=== PATIENT | female | born 1955 | race Two or more races ===

== ENCOUNTER 2019-01-15 18:43 | Emergency (ER) | payer MEDICARE, OTHER ==
[~2019-01-15] VITALS: Ht 162.6 cm; Wt 91.6 kg
[2019-01-15 19:00] VITALS: BP 118/62
[2019-01-15] MEDS ORDERED: Tetanus/Diptheria/Pertussis IM ONE (19:00)
--- NOTE | 2019-01-15 19:00 | NUR ---
ED Nurse Note: PT SENT TO ER TODAY BY DR CHAVEZ FOR TETANUS SHOT AFTER LACERATION TO LEFT FINGER X TODAY.
--- NOTE | 2019-01-15 19:30 | Emergency Room Report ---
History of Present Illness General Chief Complaint: Laceration Source: Patient Present Illness HPI 63-year-old female presents to the emergency department with request for tetanus vaccination administration. Patient status post laceration to the left index finger earlier today. Patient was seen by her primary care provider whom established hemostasis as as patient is on Coumadin. He advised patient to come to the ER to receive tetanus vaccination. Patient denies pain at this time she denies bleeding through the bandaging. Denies paresthesias. No other medical complaints/modifying factors. Pt. is right hand dominant. injury sustained when cutting veggies. Allergies: Coded Allergies: CODEINE (Verified Allergy, Unknown, 01/15/19) NITROGLYCERIN (Verified Allergy, Unknown, 01/15/19) PENICILLINS (Verified Allergy, Unknown, 01/15/19) Patient History Past Medical History: see triage record Past Surgical History: none Pertinent Family History: none Now: No Reviewed Nursing Documentation: PMH: Agreed; PSxH: Agreed Nursing Documentation-PMH Past Medical History: No History, Except For Hx Cardiac Problems: Yes - CHF, CARDIOMEGALY, LEAKY VALVES Hx Neurological Problems: Yes - FIBROMYALGIA Review of Systems All Other Systems: negative except mentioned in HPI Physical Exam Vital Signs Date Time Temp Pulse Resp B/P (MAP) Pulse Ox O2 Delivery O2 Flow Rate FiO2 01/15/19 18:52 98.2 62 16 98 Nasal Cannula 3.0 01/15/19 19:00 118/62 Sp02 EP Interpretation: reviewed, normal General Appearance: no apparent distress, alert, GCS 15, non-toxic Head: normocephalic, atraumatic Eyes: bilateral eye normal inspection, bilateral eye PERRL ENT: hearing grossly normal, normal voice Neck: full range of motion Respiratory: lungs clear, normal breath sounds, speaking full sentences Cardiovascular #1: regular rate, rhythm, normal capillary refill Musculoskeletal: gait/station normal, normal range of motion, non-tender Neurologic: alert, oriented x3, responsive, motor strength/tone normal, sensory intact, speech normal, grossly normal Psychiatric: judgement/insight normal Skin: normal color, no rash, warm/dry, well hydrated, laceration - avulsion laceration of the left index finger approx 0.5 cm in length Medical Decision Making PA Attestation Dr. rosas is my supervising Physician whom patient management has been discussed with. Diagnostic Impression: Primary Impression: Need for tetanus, diphtheria, and acellular pertussis (Tdap) vaccine ER Course 63-year-old female presents to the emergency department with request for tetanus vaccination administration. Patient status post laceration to the left index finger earlier today. Patient was seen by her primary care provider whom established hemostasis as as patient is on Coumadin. He advised patient to come to the ER to receive tetanus vaccination. Patient denies pain at this time she denies bleeding through the bandaging. Denies paresthesias. No other medical complaints/modifying factors. Pt. is right hand dominant. injury sustained when cutting veggies. Ddx considered but are not limited to laceration, tendon injury, cellulitis, amputation Vital signs: are WNL, pt. is afebrile H&PE are most consistent with: avulsion laceration of the left index finger approx 0.5 cm in length ORDERS: none required at this time, the diagnosis is clinical ED INTERVENTIONS: -Tetanus vaccine was administered as pt. vaccination status was unknown. -I do not identify an emergent condition at this time. With current presentation , pt. is stable for close outpatient follow up and conservative treatment. D/ w pt. to return promptly to ED with worsening or new symptoms.- Pt. verbalizes' understanding and agreement with proposed treatment plan.proposed treatment plan. DISCHARGE: At this time pt. is stable for d/c to home. Will provide printed patient care instructions, and any necessary prescriptions. Care plan and follow up instructions have been discussed with the patient prior to discharge. Last Vital Signs Date Time Temp Pulse Resp B/P (MAP) Pulse Ox O2 Delivery O2 Flow Rate FiO2 01/15/19 19:00 98.2 62 16 118/62 98 Nasal Cannula 3.0 Disposition: HOME, SELF-CARE Condition: Stable Patient Instructions: VIS, Tetanus, Diphtheria, and Pertussis (Tdap) - CDC Additional Instructions: Take any previously prescribed medications as directed. Follow up with a Primary Care Provider in 3-5 days, even if your symptoms have resolved. Return sooner to ED if new symptoms occur, or current symptoms become worse. - Please note that this Emergency Department Report was dictated using [employer] sociologist technology software, occasionally this can lead to erroneous entry secondary to interpretation by the dictation equipment. Linda Dorman January 15, 2019 19:30
[2019-01-15 19:38] VITALS: BP 118/62
--- NOTE | 2019-01-15 19:39 | NUR ---
ER DISCHARGE NOTE: Patient is cleared to be discharged per ERMD, pt is aox4, on room air, with stable vital signs. pt was given dc and prescription instructions, pt was able to verbalize understanding, pt id bandremoved. pt is able to ambulate with steady gait. pt took all belongings. accompanied by los
== END 2019-01-15 19:45 | disposition home or self-care (01) ==
LOC: EMR 19:30
DX: S61.211A Laceration without foreign body of left index finger without damage to nail, initial encounter (principal); M79.7 Fibromyalgia; I50.9 Heart failure, unspecified; Z88.6 Allergy status to analgesic agent; Z88.0 Allergy status to penicillin; W26.0XXA Contact with knife, initial encounter; Y93.G3 Activity, cooking and baking; Z79.01 Long term (current) use of anticoagulants; Z23 Encounter for immunization
CPT/HCPCS: 90471; 90715; 99282

== ENCOUNTER 2020-07-29 16:44 | Inpatient (IN) | payer MEDICARE ==
[~2020-07-29] VITALS: Ht 162.6 cm; Wt 94.8 kg
[2020-07-29 17:05] VITALS: BP 124/67
[2020-07-29] MEDS ORDERED: HYDROmorphone 1mg/ml Carpuject IVP ONE (17:30)
--- NOTE | 2020-07-29 17:32 | Emergency Room Report ---
History of Present Illness General Chief Complaint: Dyspnea/Respdistress Source: Patient Present Illness HPI Patient was hospitalized at [facility] from July 11 to the . The problem was rapid atrial fibrillation chest pain and congestive heart failure. She her rate was controlled but then 4 days later she started having palpitations. Over the last 48 hours she has been having palpitations nausea weakness and chest pain that is intermittent and worsened with exertion. Allergies: Coded Allergies: CODEINE (Verified Allergy, Unknown, 01/15/19) NITROGLYCERIN (Verified Allergy, Unknown, 01/15/19) PENICILLINS (Verified Allergy, Unknown, 01/15/19) COVID-19 Screening Contact w/high risk pt: No Experienced COVID-19 symptoms?: No COVID-19 Testing performed LETTER CARRIER: No Nursing Documentation-PM Past Medical History: No History, Except For Hx Cardiac Problems: Yes - CHF, CARDIOMEGALY, LEAKY VALVES Hx Pacemaker: Yes Hx COPD: Yes Hx Neurological Problems: Yes - FIBROMYALGIA Physical Exam Vital Signs Date Time Temp Pulse Resp B/P (MAP) Pulse Ox O2 Delivery O2 Flow Rate FiO2 07/29/20 16:59 98.2 60 17 124/67 (86) 94 Nasal Cannula 3.0 Medical Decision Making Diagnostic Impression: Primary Impression: Chest pain EKG Diagnostic Results Troponin ordered: Yes Rate: normal Rhythm: other - paced ST Segments: no acute changes ASA given to the pt in ED: No - Patient on Coumadin Rhythm Strip Diag. Results EP Interpretation: yes Rhythm: no PVC's, no ectopy, other - paced Kushal Dubois MD Jul 29, 2020 17:32
--- NOTE | 2020-07-29 17:52 | Emergency Room Report ---
History of Present Illness General Chief Complaint: Dyspnea/Respdistress Source: Patient Present Illness HPI Patient was hospitalized at [facility] from July 11 to the . The problem was rapid atrial fibrillation chest pain and congestive heart failure. She her rate was controlled but then 4 days. Then she started having palpitations. Over the last 48 hours she has been having palpitations nausea weakness and chest pain that is intermittent and worsened with exertion. She rates the pain 8/10 substernal and radiating somewhat posteriorly. She feels extremely weak when these episodes occur. She is barely able to ambulate at that time. She feels somewhat better leaning forward. She notices her neck veins are bulging and pulsating during these episodes. She feels anxious at that time. The patient is chronically on oxygen. The patient denies fevers or chills. She denies exposure to COVID-19 positive c ontacts. She denies productive cough. No sore throat, vomiting, diarrhea, dysuria, abdominal pain, joint pain, rashes, dizziness, headache. Allergies: Coded Allergies: NITROGLYCERIN (Verified Allergy, Unknown, 01/15/19) PENICILLINS (Verified Allergy, Unknown, 01/15/19) COVID-19 Screening Contact w/high risk pt: No Experienced COVID-19 symptoms?: No COVID-19 Testing performed PUMP AND BLOWER OPERATOR: No Patient History Past Medical History: see triage record Past Surgical History: pacemaker Social History: Denies: smoking Social History Narrative Lives alone Reviewed Nursing Documentation: PMH: Agreed; PSxH: Agreed Nursing Documentation-PMH Past Medical History: No History, Except For Hx Cardiac Problems: Yes - CHF, CARDIOMEGALY, LEAKY VALVES Hx Pacemaker: Yes Hx COPD: Yes Hx Neurological Problems: Yes - FIBROMYALGIA Review of Systems All Other Systems: negative except mentioned in HPI Physical Exam Vital Signs Date Time Temp Pulse Resp B/P (MAP) Pulse Ox O2 Delivery O2 Flow Rate FiO2 07/29/20 16:59 98.2 60 17 124/67 (86) 94 Nasal Cannula 3.0 Sp02 EP Interpretation: reviewed, abnormal - Interpreted as low by me based on FiO2 General Appearance: well appearing, no apparent distress, GCS 15, non-toxic Head: normocephalic, atraumatic Eyes: bilateral eye normal inspection, bilateral eye PERRL, bilateral eye EOMI ENT: moist mucus membranes Neck: full range of motion, supple Respiratory: chest non-tender, lungs clear, normal breath sounds Cardiovascular #1: regular rate, rhythm, no JVD, edema - Trace bilaterally Cardiovascular #2: 2+ radial (R) Gastrointestinal: normal inspection, normal bowel sounds, non tender, no mass, non-distended, overweight Genitourinary: no CVA tenderness Musculoskeletal: back normal, normal range of motion, no calf tenderness, gait/station normal Neurologic: alert, oriented x3, grossly normal Psychiatric: depressed affect Skin: no rash, warm/dry Medical Decision Making Diagnostic Impression: Primary Impression: Chest pain Qualified Codes: R07.9 - Chest pain, unspecified Additional Impression: Hypoxia ER Course The patient presents with several episodes of chest pain, weakness, anxiety after discharge from hospitalization at [facility]. Differential includes unstable angina, acute myocardial infarction, exacerbation of congestive heart failure, pulmonary embolus amongst others. Complex history with comorbidities. Suspicion for COVID-19 is low to nil. Evaluation with EKG, chest x-ray and labs. Aspirin was withheld due to the fact that she is on Coumadin. Suspicion for pulmonary embolus is low. Patient is placed on a clinical research monitor. Oxygen is continued. Patient is treated for pain. Complex patient with several comorbidities. EKG paced rhythm. Chest x-ray with slight reversal of flow and cardiomegaly. Normal white count. Anemia with hemoglobin of 9.7. CMP remarkable for elevated BUN. INR 2.1. Troponin negative. Patient improved with treatment. No arrhythmias noted during the time of observ ation. Patient admitted to telemetry for further cardiac evaluation and treatment. Laboratory Tests Test 07/29/20 18:10 07/29/20 18:43 White Blood Count 8.1 K/UL (4.8-10.8) Red Blood Count 3.00 M/UL (4.20-5.40) L Hemoglobin 9.7 G/DL (12.0-16.0) L Hematocrit 30.3 % (37.0-47.0) L Mean Corpuscular Volume 101 FL (80-99) H Mean Corpuscular Hemoglobin 32.4 PG (27.0-31.0) H Mean Corpuscular Hemoglobin Concent 32.0 G/DL (32.0-36.0) Red Cell Distribution Width 13.4 % (11.6-14.8) Platelet Count 117 K/UL (150-450) L Mean Platelet Volume 8.8 FL (6.5-10.1) Neutrophils (%) (Auto) 64.2 % (45.0-75.0) Lymphocytes (%) (Auto) 23.4 % (20.0-45.0) Monocytes (%) (Auto) 8.2 % (1.0-10.0) Eosinophils (%) (Auto) 2.9 % (0.0-3.0) Basophils (%) (Auto) 1.3 % (0.0-2.0) Prothrombin Time 21.5 SEC (9.30-11.50) H Prothrombin Time INR 2.1 (0.9-1.1) H Activated Partial Thromboplast Time 36 SEC (23-33) H Sodium Level 144 MMOL/L (136-145) Potassium Level 4.0 MMOL/L (3.5-5.1) Chloride Level 107 MMOL/L (98-107) Carbon Dioxide Level 32 MMOL/L (21-32) Anion Gap 5 mmol/L (5-15) Blood Urea Nitrogen 26 mg/dL (7-18) H Creatinine 1.1 MG/DL (0.55-1.30) Estimated Glomerular Filtration Rate > 60 mL/min (>60) Glucose Level 116 MG/DL (74-106) H Calcium Level 8.4 MG/DL (8.5-10.1) L Total Bilirubin 0.4 MG/DL (0.2-1.0) Aspartate Amino Transferase (AST) 29 U/L (15-37) Alanine Aminotransferase (ALT) 33 U/L (12-78) Alkaline Phosphatase 69 U/L (46-116) Total Creatine Kinase 110 U/L (26-308) Troponin I 0.026 ng/mL (0.000-0.056) Pro-B-Type Natriuretic Peptide 2679 pg/mL (0-125) H Total Protein 6.5 G/DL (6.4-8.2) Albumin 3.3 G/DL (3.4-5.0) L Globulin 3.2 g/dL Albumin/Globulin Ratio 1.0 (1.0-2.7) Urine Color Yellow Urine Appearance Clear Urine pH 7 (4.5-8.0) Urine Specific [place] 1.010 (1.005-1.035) Urine Protein Negative (NEGATIVE) Urine Glucose (UA) Negative (NEGATIVE) Urine Ketones Negative (NEGATIVE) Urine Blood Negative (NEGATIVE) Urine Nitrite Negative (NEGATIVE) Urine Bilirubin Negative (NEGATIVE) Urine Urobilinogen Normal MG/DL (0.0-1.0) Urine Leukocyte Esterase 1+ (NEGATIVE) H Urine RBC 0-2 /HPF (0 - 2) Urine WBC 0-2 /HPF (0 - 2) Urine Squamous Epithelial Cells Occasional /LPF Urine Bacteria Occasional /HPF (NONE) EKG Diagnostic Results Rate: normal Rhythm: other - paced ST Segments: no acute changes ASA given to the pt in ED: No - on coumadin Rhythm Strip Diag. Results Rhythm: no PVC's, no ectopy, other - paced Chest X-Ray Diagnostic Results Chest X-Ray Diagnostic Results : Chest X-Ray Ordered: Yes # of Views/Limited/Complete: 1 View Indication: Chest Pain Interpretation: no effusion, no pneumothorax, other - Mild pulmonary hypertension and cardiomegaly Impression: Other Electronically Signed by: Electronically signed by Kushal Dubois MD Last Vital Signs Date Time Temp Pulse Resp B/P (MAP) Pulse Ox O2 Delivery O2 Flow Rate FiO2 07/30/20 01:23 Nasal Cannula 2.0 07/30/20 01:15 61 117/64 07/30/20 00:00 96.4 18 97 Status: improved Disposition: ADMITTED INPATIENT Condition: Serious Kushal Dubois MD Jul 29, 2020 17:52
[2020-07-29 18:54] LABS: BASOPHILS % (AUTO) 1.3 % (0.0-2.0); EOSINOPHILS % (AUTO) 2.9 % (0.0-3.0); HEMATOCRIT 30.3 % (37.0-47.0); HEMOGLOBIN 9.7 G/DL (12.0-16.0); LYMPHOCYTES % (AUTO) 23.4 % (20.0-45.0); MEAN CORPUSCULAR VOLUME 101 FL (80-99); MONOCYTES % (AUTO) 8.2 % (1.0-10.0); NEUTROPHILS % (AUTO) 64.2 % (45.0-75.0); PLATELET COUNT 117 K/UL (150-450); RED CELL DISTRIBUTION WIDTH 13.4 % (11.6-14.8); WHITE BLOOD COUNT 8.1 K/UL (4.8-10.8)
[2020-07-29] MEDS ORDERED: dilTIAZem HCl 25mg/5ml Inj IV PRN (19:00)
[2020-07-29] MEDS ORDERED: Enalaprilat 2.5mg/2ml Inj IV PRN (19:00)
[2020-07-29] MEDS ORDERED: Albuterol/Ipratropium 3ml neb HHN PRN (19:00)
[2020-07-29] MEDS ORDERED: Miralax 17gm pkt ORAL PRN (19:00)
[2020-07-29 19:04] LABS: APPEARANCE,URINE CLEAR; BILIRUBIN, URINE NEGATIVE (NEGATIVE); GLUCOSE, URINE (UA) NEGATIVE (NEGATIVE); KETONES,URINE NEGATIVE (NEGATIVE); LEUKOCYTE ESTERASE ,URINE 1+ (NEGATIVE); NITRITE,URINE NEGATIVE (NEGATIVE); PH,URINE 7 (4.5-8.0); PROTEIN,URINE NEGATIVE (NEGATIVE); UROBILINOGEN,URINE NORMAL MG/DL (0.0-1.0)
[2020-07-29 19:10] LABS: INR 2.1 (0.9-1.1)
[2020-07-29 19:10] LABS: COLOR,URINE YELLOW
[2020-07-29 19:11] LABS: ANION GAP 5 mmol/L (5-15); BLOOD UREA NITROGEN 26 mg/dL (7-18); CALCIUM 8.4 MG/DL (8.5-10.1); CARBON DIOXIDE 32 MMOL/L (21-32); CHLORIDE 107 MMOL/L (98-107); CREATININE 1.1 MG/DL (0.55-1.30); SODIUM 144 MMOL/L (136-145)
[2020-07-29 19:24] LABS: ALANINE AMINOTRANSFERASE 33 U/L (12-78); ALBUMIN 3.3 G/DL (3.4-5.0); ALKALINE PHOSPHATASE 69 U/L (46-116); ASPARTATE AMINO TRANSFERASE 29 U/L (15-37); BILIRUBIN,TOTAL 0.4 MG/DL (0.2-1.0); CREATINE KINASE 110 U/L (26-308)
[2020-07-29] MEDS ORDERED: Heparin 5000 units/ml inj SUBQ SCH (21:00)
[2020-07-29] MEDS ORDERED: LISINOPRIL10 MG ORAL (22:06)
[2020-07-29] MEDS ORDERED: DULERA 200 MCG/13 GM IH (22:06)
[2020-07-29] MEDS ORDERED: FUROSEMIDE40 MG ORAL (22:06)
[2020-07-29] MEDS ORDERED: VITAMIN C500 M1 ORAL (22:06)
[2020-07-29] MEDS ORDERED: COLACE100 MG ORAL (22:06)
[2020-07-29] MEDS ORDERED: SUCRALFATE1 GM ORAL (22:06)
[2020-07-29] MEDS ORDERED: LIDODERM700 M1 TOPIC (22:06)
[2020-07-29] MEDS ORDERED: BACLOFEN10 MG ORAL (22:06)
[2020-07-29] MEDS ORDERED: ROXICODONE15 MG ORAL (22:06)
[2020-07-29] MEDS ORDERED: DIGOXIN0.125 MG/2 ORAL (22:06)
[2020-07-29] MEDS ORDERED: MAGNESIUM400 M2 PO (22:06)
[2020-07-29] MEDS ORDERED: POTASSIUM CHLO20 ME1 ORAL (22:06)
[2020-07-29] MEDS ORDERED: SIMVASTATIN40 MG ORAL (22:06)
[2020-07-29] MEDS ORDERED: WARFARIN SODIUM6 MG ORAL (22:06)
[2020-07-29] MEDS ORDERED: AMBIEN10 MG ORAL (22:06)
[2020-07-29] MEDS ORDERED: RELAFEN500 MG PO (22:06)
[2020-07-29] MEDS ORDERED: FOSAMAX70 MG ORAL (22:06)
[2020-07-29] MEDS ORDERED: MULTIVITAMINS1 EAC2 ORAL (22:06)
[2020-07-29] MEDS ORDERED: ALBUTEROL SULF8.5 G1 INH (22:06)
[2020-07-29] MEDS ORDERED: BENADRYL25 MG ORAL (22:06)
[2020-07-29] MEDS ORDERED: CARVEDILOL25 MG ORAL (22:06)
[2020-07-29] MEDS ORDERED: OMEPRAZOLE20 M3 ORAL (22:06)
--- NOTE | 2020-07-29 22:06 | History & Physical ---
History and Physical History & Physicial Yuri Escalera MD Jul 29, 2020 22:06
[2020-07-29] MEDS ORDERED: oxyCODONE 15mg IR tab ORAL PRN (23:31)
[2020-07-29] MEDS ORDERED: Zolpidem 5mg tab ORAL PRN (23:45)
[2020-07-29] MEDS: HYDROmorphone 1mg/ml Carpuject IVP PRN (23:58)
[2020-07-30] VITALS: BP 117/64
--- NOTE | 2020-07-30 01:14 | History and Physical Report ---
DATE OF ADMISSION: 07/29/2020 CHIEF COMPLAINT: Shortness of breath, palpitations. HISTORY OF PRESENT ILLNESS: This is a 65-year-old very delightful female with past medical history significant for hypertension, nonischemic dilated cardiomyopathy, rheumatic heart disease, paroxysmal atrial fibrillation status post dual-chamber implanted cardioverter defibrillator who presented to the hospital complaining about shortness of breath. Patient was recently seen in my office with complaints of shortness of breath and palpitation and subsequently was advised to get a blood test done. However, her status progressively worsening and she decided to come to the emergency room. Patient was noted recently admitted to [facility] on 07/11/2020 with palpitations, dizziness, and shortness of breath. Subsequently, patient was admitted to the hospital with acute on chronic congestive heart failure with preserved ejection fraction. PAST MEDICAL HISTORY/PAST SURGICAL HISTORY: As above, history of AICD placement, congestive heart failure, emphysema, COPD, fibromyalgia, congestive heart failure, dyslipidemia, osteoarthritis, history of TIA as well as ventricular fibrillation. MEDICATIONS: At home significant for oxycodone 20 mg 1 tablet q.12h., baclofen 10 mg 3 times a day as needed for spasms, Dyazide 10 mg by mouth twice daily as needed for pain, Ambien 10 mg p.o. at bedtime, iron sulfate 1 tablet p.o. t.i.d., warfarin 5 mg p.o. at bedtime, omeprazole 20 mg daily. Patient is on multivitamin, omega-3, lisinopril 10 mg daily, digoxin 125 mcg p.o. daily, carvedilol 25 mg twice a day, calcium with vitamin D 1 tablet p.o. daily, milk of magnesia 30 mL p.o. daily, Zocor 40 mg p.o. daily, Narcan nasal spray as needed. Patient is on Relafin 500 mg twice a day, potassium chloride 20 mg twice a day, Carafate 1 tablet p.o. daily, Benadryl 50 mg 3 times a day as needed, Lasix 40 mg twice a day, ascorbic acid 1000 mg twice a day. ALLERGIES: To codeine with itching, nausea, vomiting, nitrofurantoin, nitroglycerin with facial and around the eye swelling, penicillin, red spots on the body, morphine with nausea. SOCIAL HISTORY: Patient is . Never smoked. No alcohol or substance abuse. FAMILY HISTORY: Noncontributory. REVIEW OF SYSTEMS: Mostly as above. Denies any dysuria, frequency, or hematuria. Denies any hemoptysis or hematochezia. Complained about shortness of breath. Denies any loss of consciousness. Denies any fall or head trauma. Complained about palpitation, multiple joint pains. PHYSICAL EXAMINATION: VITAL SIGNS: On admission from the ER, temperature 98.2, pulse of 60, respirations 17, blood pressure 124/67. GENERAL: Patient is awake, responsive, in no acute distress. HEAD AND NECK: Pupils are equal and reactive to light. Extraocular movements are intact. Neck was supple. No JVD. LUNGS: Good air entry with no wheezing or rales. Decreased in bases. HEART: S1, S2. Irregular. Systolic ejection murmur left sternal border. No gallop. AICD in left-sided chest wall. ABDOMEN: Soft, nondistended, nontender. Positive bowel sounds. Mildly obese. Midline surgical scar was noted from prior surgery. Patient has a right-sided ventral hernia. EXTREMITIES: No cyanosis, clubbing. Trace edema bilateral lower extremities. NEUROLOGIC: Cranial nerves II through XII grossly intact. Motor is 5/5 in all extremities. RECTAL: Refused and deferred. GENITOURINARY: Refused and deferred. PSYCHIATRIC: Mood and affect is intact. LABORATORY DATA: On admission from the emergency department, WBC of 8.1, hemoglobin 9.7, hematocrit 30, platelets is 117. Sodium 144, potassium 4.0, chloride 107, bicarb 32, BUN 26, creatinine 1.0, GFR greater than 60. First troponin 0.026. ProBNP of 2679. Albumin is 3.3. PT of 21, INR 2.1, PTT of 36. Urinalysis, +1 leukocyte, otherwise all negative. On reviewing the records from [facility], patient recently had a negative myocardial perfusion pharmacologic SPECT exam on 03/16/2019. Noted patient has absence of coronary calcification on recent CT imaging. Decreased likelihood of significant obstructive coronary artery disease. Patient has total 7% myocardial defect with 3% reversible and 4% fixed, vessel reversible, nonreversible, RCA, LAD, small. ASSESSMENT: 1. Chest pain, possible acute coronary syndrome. 2. Acute on chronic congestive heart failure with preserved ejection fraction. 3. Ventral hernia without obstruction or gangrene. 4. Chronic atrial fibrillation. 5. Dilated cardiomyopathy. 6. Morbid obesity. 7. Fibromyalgia. 8. Hypertension. 9. COPD emphysema. 10. Severe osteoarthritis of the knees. PLAN: Admit patient to monitored unit. We will follow serial cardiac enzymes. Discussed with Dr. Calderon from Pulmonary Critical Care. Start patient on Lasix IV. Resume home medication. Code status is Full Code. DVT prophylaxis, she is already on Coumadin. Yuri Escalera M.D. DR: FAREED JOB#: [id number] CC:
[2020-07-30] MEDS: Carvedilol 25mg Tab ORAL SCH ×3 (01:15→21:14)
[2020-07-30] MEDS: Sucralfate 1gm tab ORAL SCH ×5 (01:15→21:12)
[2020-07-30 04:00] VITALS: BP 129/62
[2020-07-30 07:21] LABS: BASOPHILS % (AUTO) 1.4 % (0.0-2.0); EOSINOPHILS % (AUTO) 3.1 % (0.0-3.0); HEMATOCRIT 31.3 % (37.0-47.0); HEMOGLOBIN 9.9 G/DL (12.0-16.0); LYMPHOCYTES % (AUTO) 22.9 % (20.0-45.0); MEAN CORPUSCULAR VOLUME 104 FL (80-99); MONOCYTES % (AUTO) 8.8 % (1.0-10.0); NEUTROPHILS % (AUTO) 63.7 % (45.0-75.0); PLATELET COUNT 114 K/UL (150-450); RED CELL DISTRIBUTION WIDTH 13.5 % (11.6-14.8); WHITE BLOOD COUNT 6.7 K/UL (4.8-10.8)
[2020-07-30 07:52] LABS: ALANINE AMINOTRANSFERASE 33 U/L (12-78); ALBUMIN 3.1 G/DL (3.4-5.0); ALKALINE PHOSPHATASE 65 U/L (46-116); ANION GAP 3 mmol/L (5-15); ASPARTATE AMINO TRANSFERASE 29 U/L (15-37); BILIRUBIN,TOTAL 0.4 MG/DL (0.2-1.0); BLOOD UREA NITROGEN 26 mg/dL (7-18); CALCIUM 8.3 MG/DL (8.5-10.1); CARBON DIOXIDE 34 MMOL/L (21-32); CHLORIDE 106 MMOL/L (98-107); CHOLESTEROL 152 MG/DL (< 200); HDL CHOLESTEROL 45 MG/DL (40-60); SODIUM 143 MMOL/L (136-145); TRIGLYCERIDES 80 MG/DL (30-150)
[2020-07-30 08:00] VITALS: BP 103/52
[2020-07-30] MEDS: HYDROmorphone 1mg/ml Carpuject IVP PRN ×5 (08:12→22:40)
[2020-07-30 08:23] LABS: PHOSPHORUS 3.4 MG/DL (2.5-4.9)
[2020-07-30] MEDS ORDERED: Hydromorphone 0.5mg/0.5ml inj IVP PRN (08:29)
[2020-07-30] MEDS: Lisinopril 10mg tab ORAL SCH (09:00)
[2020-07-30] MEDS: Ascorbic Acid 500mg tab ORAL SCH (10:05)
[2020-07-30] MEDS: Aspirin Baby 81mg ORAL SCH (10:05)
[2020-07-30] MEDS: Digoxin 0.125mg tab ORAL SCH (10:06)
[2020-07-30] MEDS: Docusate 100mg cap ORAL SCH ×2 (10:06→17:57)
--- NOTE | 2020-07-30 11:56 | Consultation ---
History of Present Illness General Date patient seen: Jul 30, 2020 Chief Complaint: Dyspnea/Respdistress Present Illness HPI 65 year old female with hx of chronic atrial fibrillation, chronic anticoagulation with warfarin, recent hospitalization at [facility] because of rapid atrial fibrillation chest pain and congestive heart failure. She her rate was controlled but then 4 days later she started having palpitations. Over the last 48 hours she has been having palpitations nausea weakness and chest pain that is intermittent and worsened with exertion. Acute NE was ruled out in ER and she is admitted for further management. Allergies: Coded Allergies: NITROGLYCERIN (Verified Allergy, Unknown, 01/15/19) PENICILLINS (Verified Allergy, Unknown, 01/15/19) Medication History Scheduled Albuterol Sulfate* (Albuterol Sulfate Hfa*), 2 PUFF INH Q4H, (Reported) Alendronate Sodium* (Fosamax*), 70 MG ORAL ONCE A WEEK, (Reported) Ascorbic Acid* (Vitamin C*), 1,000 MG ORAL DAILY, (Reported) Baclofen* (Baclofen*), 10 MG ORAL THREE TIMES A DAY, (Reported) Carvedilol* (Carvedilol*), 25 MG ORAL EVERY 12 HOURS, (Reported) Digoxin* (Digoxin*), 0.125 MG ORAL DAILY, (Reported) Docusate Sodium* (Colace*), 100 MG ORAL TWICE A DAY, (Reported) Furosemide* (Lasix*), 40 MG ORAL TWICE A DAY, (Reported) Lidocaine Patch* (Lidoderm Patch*), 1 PATCH TOPIC DAILY, (Reported) Lisinopril* (Lisinopril*), 10 MG ORAL DAILY, (Reported) Multivitamins* (Multivitamins*), 1 TAB ORAL DAILY, (Reported) Omeprazole (Omeprazole), 20 MG ORAL DAILY, (Reported) Potassium Chloride* (K-Dur*), 20 MEQ ORAL TWICE A DAY, (Reported) Simvastatin (Zocor), 40 MG ORAL BEDTIME, (Reported) Sucralfate* (Carafate*), 1 GM ORAL FOUR TIMES A DAY, (Reported) Warfarin Sod* (Warfarin Sod*), 6 MG ORAL DAILY, (Reported) Scheduled PRN Diphenhydramine Hcl* (Benadryl*), 25 MG ORAL Q6H PRN for Itching, (Reported) OXYCODONE HCl* (Roxicodone*), 15 MG ORAL Q6H PRN for For Pain, (Reported) Zolpidem Tartrate* (Ambien*), 10 MG ORAL BEDTIME PRN for Insomnia, (Reported) Miscellaneous Medications Magnesium Oxide (Magnesium), 400 MG PO, (Reported) Mometasone/Formoterol (Dulera 200 Mcg/5 Mcg Inhaler), 13 GM IH, (Reported) Nabumetone (Nabumetone), 500 MG GT, (Reported) Patient History Healthcare decision maker Resuscitation status Advanced Directive on File No Past Medical/Surgical History Past Medical/Surgical History: (1) Chronic anticoagulation (2) Chronic atrial fibrillation (3) Pacemaker Review of Systems All Other Systems: negative except mentioned in HPI Physical Exam General Appearance: WD/WN, no apparent distress, alert Lines, tubes and drains: peripheral HEENT: normocephalic, atraumatic Neck: non-tender, normal alignment Respiratory/Chest: chest wall non-tender, lungs clear, normal breath sounds Cardiovascular/Chest: normal peripheral pulses, normal rate, regular rhythm Abdomen: normal bowel sounds, non tender Extremities: normal range of motion, non-tender, non-pitting Skin Exam: normal pigmentation 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: 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 II-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 grossly normal Last 24 Hour Vital Signs Date Time Temp Pulse Resp B/P (MAP) Pulse Ox O2 Delivery O2 Flow Rate FiO2 07/30/20 10:06 68 07/30/20 09:00 103/52 07/30/20 09:00 68 103/52 07/30/20 09:00 Nasal Cannula 2.0 07/30/20 08:00 60 07/30/20 08:00 97.1 68 18 103/52 (69) 97 07/30/20 04:00 97.9 60 16 129/62 (84) 96 07/30/20 04:00 60 07/30/20 01:23 Nasal Cannula 2.0 07/30/20 01:15 61 117/64 07/30/20 00:00 60 07/30/20 00:00 96.4 60 18 117/64 (81) 97 07/29/20 22:08 98.2 76 18 117/76 98 Nasal Cannula 2.0 07/29/20 19:01 98.2 07/29/20 17:05 98.2 89 17 124/67 94 Nasal Cannula 3.0 07/29/20 17:05 60 17 Room Air 07/29/20 16:59 98.2 60 17 124/ (86) 94 Nasal Cannula 3.0 Intake and Output 07/29/20 07/30/20 19:00 07:00 Intake Total 400 ml Balance 400 ml Intake Oral 400 ml # Voids 5 Laboratory Tests Test 07/29/20 18:10 07/29/20 18:43 07/30/20 06:37 White Blood Count 8.1 K/UL (4.8-10.8) 6.7 K/UL (4.8-10.8) Red Blood Count 3.00 M/UL (4.20-5.40) L 3.00 M/UL (4.20-5.40) L Hemoglobin 9.7 G/DL (12.0-16.0) L 9.9 G/DL (12.0-16.0) L Hematocrit 30.3 % (37.0-47.0) L 31.3 % (37.0-47.0) L Mean Corpuscular Volume 101 FL (80-99) H 104 FL (80-99) H Mean Corpuscular Hemoglobin 32.4 PG (27.0-31.0) H 32.8 PG (27.0-31.0) H Mean Corpuscular Hemoglobin Concent 32.0 G/DL (32.0-36.0) 31.6 G/DL (32.0-36.0) L Red Cell Distribution Width 13.4 % (11.6-14.8) 13.5 % (11.6-14.8) Platelet Count 117 K/UL (150-450) L 114 K/UL (150-450) L Mean Platelet Volume 8.8 FL (6.5-10.1) 8.8 FL (6.5-10.1) Neutrophils (%) (Auto) 64.2 % (45.0-75.0) 63.7 % (45.0-75.0) Lymphocytes (%) (Auto) 23.4 % (20.0-45.0) 22.9 % (20.0-45.0) Monocytes (%) (Auto) 8.2 % (1.0-10.0) 8.8 % (1.0-10.0) Eosinophils (%) (Auto) 2.9 % (0.0-3.0) 3.1 % (0.0-3.0) H Basophils (%) (Auto) 1.3 % (0.0-2.0) 1.4 % (0.0-2.0) Prothrombin Time 21.5 SEC (9.30-11.50) H 20.7 SEC (9.30-11.50) H Prothromb Time International Ratio 2.1 (0.9-1.1) H 2.0 (0.9-1.1) H Activated Partial Thromboplast Time 36 SEC (23-33) H 36 SEC (23-33) H Sodium Level 144 MMOL/L (136-145) 143 MMOL/L (136-145) Potassium Level 4.0 MMOL/L (3.5-5.1) 4.0 MMOL/L (3.5-5.1) Chloride Level 107 MMOL/L (98-107) 106 MMOL/L (98-107) Carbon Dioxide Level 32 MMOL/L (21-32) 34 MMOL/L (21-32) H Anion Gap 5 mmol/L (5-15) 3 mmol/L (5-15) L Blood Urea Nitrogen 26 mg/dL (7-18) H 26 mg/dL (7-18) H Creatinine 1.1 MG/DL (0.55-1.30) 1.0 MG/DL (0.55-1.30) Estimat Glomerular Filtration Rate > 60 mL/min (>60) > 60 mL/min (>60) Glucose Level 116 MG/DL (74-106) H 97 MG/DL (74-106) Calcium Level 8.4 MG/DL (8.5-10.1) L 8.3 MG/DL (8.5-10.1) L Total Bilirubin 0.4 MG/DL (0.2-1.0) 0.4 MG/DL (0.2-1.0) Aspartate Amino Transf (AST/SGOT) 29 U/L (15-37) 29 U/L (15-37) Alanine Aminotransferase (ALT/SGPT) 33 U/L (12-78) 33 U/L (12-78) Alkaline Phosphatase 69 U/L (46-116) 65 U/L (46-116) Total Creatine Kinase 110 U/L (26-308) Troponin I 0.026 ng/mL (0.000-0.056) 0.024 ng/mL (0.000-0.056) Pro-B-Type Natriuretic Peptide 2679 pg/mL (0-125) H Total Protein 6.5 G/DL (6.4-8.2) 6.3 G/DL (6.4-8.2) L Albumin 3.3 G/DL (3.4-5.0) L 3.1 G/DL (3.4-5.0) L Globulin 3.2 g/dL 3.2 g/dL Albumin/Globulin Ratio 1.0 (1.0-2.7) 1.0 (1.0-2.7) Urine Color Yellow Urine Appearance Clear Urine pH 7 (4.5-8.0) Urine Specific [place] 1.010 (1.005-1.035) Urine Protein Negative (NEGATIVE) Urine Glucose (UA) Negative (NEGATIVE) Urine Ketones Negative (NEGATIVE) Urine Blood Negative (NEGATIVE) Urine Nitrite Negative (NEGATIVE) Urine Bilirubin Negative (NEGATIVE) Urine Urobilinogen Normal MG/DL (0.0-1.0) Urine Leukocyte Esterase 1+ (NEGATIVE) H Urine RBC 0-2 /HPF (0 - 2) Urine WBC 0-2 /HPF (0 - 2) Urine Squamous Epithelial Cells Occasional /LPF Urine Bacteria Occasional /HPF (NONE) Phosphorus Level 3.4 MG/DL (2.5-4.9) Magnesium Level 2.0 MG/DL (1.8-2.4) C-Reactive Protein, Quantitative 0.5 mg/dL (0.00-0.90) Triglycerides Level 80 MG/DL (30-150) Cholesterol Level 152 MG/DL (< 200) LDL Cholesterol 83 mg/dL (<100) HDL Cholesterol 45 MG/DL (40-60) Cholesterol/HDL Ratio 3.4 (3.3-4.4) Thyroid Stimulating Hormone (TSH) 1.070 uiU/mL (0.358-3.740) Microbiology Date/Time Source Procedure Growth Status 07/29/20 22:00 Rectum Received Height (Feet): 5 Height (Inches): 4.00 Weight (Pounds): 209 Medications Current Medications Medications (Trade) Dose Ordered Sig/Nancy Route PRN Reason Start Time Stop Time Status Last Admin Dose Admin Acetaminophen (Tylenol) 650 mg Q4H PRN ORAL FEVER 07/29/20 19:00 08/28/20 18:59 Albuterol/ Ipratropium (Albuterol/ Ipratropium) 3 ml Q4H PRN HHN Shortness of Breath 07/29/20 19:00 08/03/20 18:59 Ascorbic Acid (Vitamin C) 1,000 mg DAILY ORAL 07/30/20 09:00 08/29/20 08:59 07/30/20 10:05 Aspirin (ASA) 162 mg DAILY ORAL 07/30/20 09:00 09/13/20 08:59 07/30/20 10:05 Atorvastatin Calcium (Lipitor) 20 mg BEDTIME ORAL 07/30/20 21:00 10/28/20 20:59 Baclofen (Lioresal) 10 mg THREE TIMES A DAY ORAL 07/30/20 09:00 08/29/20 08:59 07/30/20 10:06 Carvedilol (Coreg) 25 mg EVERY 12 HOURS ORAL 07/30/20 00:00 08/29/20 00:00 07/30/20 01:15 Digoxin (Lanoxin) 0.125 mg DAILY ORAL 07/30/20 09:00 10/28/20 08:59 07/30/20 10:06 Diltiazem HCl (Cardizem) 10 mg Q1H PRN IV heart rate more than 120, 07/29/20 19:00 08/28/20 18:59 Diphenhydramine HCl (Benadryl) 25 mg Q6H PRN ORAL Itching 07/29/20 23:45 08/28/20 23:44 Docusate Sodium (Colace) 100 mg TWICE A DAY ORAL 07/30/20 09:00 08/29/20 08:59 07/30/20 10:06 Enalaprilat (Vasotec) 2.5 mg Q6H PRN IV sbp more than 160 07/29/20 19:00 08/28/20 18:59 Furosemide (Lasix) 40 mg EVERY 12 HOURS IV 07/30/20 00:00 08/29/20 00:00 07/30/20 10:05 Hydromorphone HCl (Dilaudid) 0.5 mg Q4H PRN IVP Severe Pain (Pain Scale 7-10) 07/30/20 08:29 08/06/20 08:28 Lidocaine (Lidoderm 5% PATCH) 1 patch DAILY PRN TDERMAL For Pain 07/29/20 23:45 10/27/20 23:44 Lisinopril (ZestriL) 10 mg DAILY ORAL 07/30/20 09:00 08/29/20 08:59 Magnesium Oxide (Mag-Ox 400mg) 400 mg DAILYPRN PRN ORAL Constipation 07/30/20 08:30 08/29/20 08:29 Multivitamins (Multivitamins) 1 tab DAILY ORAL 07/30/20 09:00 08/29/20 08:59 07/30/20 10:06 Non-Formulary Medication (Non-Formulary Med) 1 ea BID PRN INH Shortness of Breath 07/29/20 23:45 08/28/20 23:44 UNV Ondansetron HCl (Zofran) 4 mg Q6H PRN IVP Nausea & Vomiting 07/29/20 19:00 08/28/20 18:59 07/30/20 10:21 Oxycodone HCl (Roxicodone) 15 mg Q6H PRN ORAL Moderate Breakthru Pain (5-7) 07/29/20 23:31 08/05/20 23:30 Polyethylene Glycol (Miralax) 17 gm DAILYPRN PRN ORAL Constipation 07/29/20 19:00 08/28/20 18:59 Potassium Chloride (K-Dur) 20 meq TWICE A DAY ORAL 07/30/20 09:00 10/28/20 08:59 07/30/20 10:05 Sucralfate (Carafate) 1 gm BEFORE MEALS AND HS ORAL 07/30/20 00:00 10/28/20 00:00 07/30/20 06:39 Temazepam (Restoril) 15 mg HSPRN PRN ORAL Insomnia first choice 07/29/20 19:00 08/05/20 18:59 07/30/20 03:08 Warfarin Sodium (Coumadin per pharmacy) 1 ea DAILY PRN MISC Per rx protocol 07/29/20 23:45 08/28/20 23:44 Warfarin Sodium (Coumadin/ Warfarin Sod) 6 mg COUMADIN ORAL 07/30/20 17:00 07/30/20 19:00 Zolpidem Tartrate (Ambien) 5 mg BEDTIME PRN ORAL Insomnia 07/29/20 23:45 08/05/20 23:44 Assessment/Plan Problem List: (1) Chronic atrial fibrillation ICD Codes: I48.20 - Chronic atrial fibrillation, unspecified SNOMED: 560101127 (2) Chronic anticoagulation ICD Codes: Z79.01 - assisted (current) use of anticoagulants SNOMED: 734251284 (3) Macrocytic anemia ICD Codes: D53.9 - Nutritional anemia, unspecified SNOMED: 15126957 (4) ACS (acute coronary syndrome) ICD Codes: I24.9 - Acute ischemic heart disease, unspecified SNOMED: 127880422 (5) Pacemaker ICD Codes: Z95.0 - Presence of cardiac pacemaker SNOMED: 197222280 Assessment/Plan: telemetry monitoring echocardiogram titrate cardiac meds pharmacy to dose coumadin pain management pt is asking for Zarina Estrada MD Jul 30, 2020 11:56
[2020-07-30 12:00] VITALS: BP 133/72
--- NOTE | 2020-07-30 12:41 | Cardiology Report ---
APPROVED REPORT EXAM: Two-dimensional and M-mode echocardiogram with Doppler and color Doppler. INDICATION Left ventricular function M-Mode DIMENSIONS IVSd0.8 (0.7-1.1cm)Left Atrium (MM)6.6 (1.6-4.0cm) LVDd6.7 (3.5-5.6cm)Aortic Root3.1 (2.0-3.7cm) PWd0.8 (0.7-1.1cm)Aortic Cusp Exc.1.7 (1.5-2.0cm) IVSs1.8 cmEPSS0.9 (>1.0cm) LVDs4.0 (2.5-4.0cm) PWs2.0 cm <Conclusion> Mild left ventricular enlargement. Normal left ventricular systolic function and wall motion Left ventricular ejection fraction estimated to be 60 %. No left ventricular hypertrophy. Possible large pleural effusion. Severe left atrial enlargement. Mild right atrial enlargement. Right ventricular chamber size is within normal limits. Focal aortic valve sclerosis with adequate cusp excursion. Thickened mitral valve leaflets with normal excursion. Mitral annulus and aortic root calcification. Pulmonic valve not well visualized. Normal tricuspid valve structure. IVC dilated at 3.0 cm with slignt physiologic collapse suggestive of increased RA pressure. Pacemaker wire present in the right side chambers. A color flow and spectral Doppler study was performed and revealed: Moderate aortic regurgitation. Moderate to severe mitral regurgitation. Cannot determine left ventricular diastolic function by mitral diastolic velocities due to atrial fibrillation. Moderate to severe tricuspid regurgitation. Tricuspid systolic velocities suggests peak right ventricular systolic pressure of 90 mmHg, consistent with severe pulmonary hypertension. No pulmonic regurgitation present.
--- NOTE | 2020-07-30 12:52 | Cardiology Report ---
APPROVED REPORT EKG Measurement Heart [id number] <Conclusion> Ventricular-paced rhythm Abnormal ECG
[2020-07-30 12:55] LABS: LACTATE DEHYDROGENASE 297 U/L (81-234)
--- NOTE | 2020-07-30 13:01 | Cardiac Electrophysiology PN ---
Subjective Subjective [id number]. [facility] records reviewed and DW Dr Brice Objective Last 24 Hour Vital Signs Date Time Temp Pulse Resp B/P (MAP) Pulse Ox O2 Delivery O2 Flow Rate FiO2 07/30/20 12:00 60 07/30/20 12:00 97.9 60 18 133/72 (92) 96 07/30/20 10:06 68 07/30/20 09:00 103/52 07/30/20 09:00 68 103/52 07/30/20 09:00 Nasal Cannula 2.0 07/30/20 08:00 60 07/30/20 08:00 97.1 68 18 103/52 (69) 97 07/30/20 04:00 97.9 60 16 129/62 (84) 96 07/30/20 04:00 60 07/30/20 01:23 Nasal Cannula 2.0 07/30/20 01:15 61 117/64 07/30/20 00:00 60 07/30/20 00:00 96.4 60 18 117/64 (81) 97 07/29/20 22:08 98.2 76 18 117/76 98 Nasal Cannula 2.0 07/29/20 19:01 98.2 07/29/20 17:05 98.2 89 17 124/67 94 Nasal Cannula 3.0 07/29/20 17:05 60 17 Room Air 07/29/20 16:59 98.2 60 17 124/67 (86) 94 Nasal Cannula 3.0 Intake and Output 07/29/20 07/30/20 19:00 07:00 Intake Total 400 ml Balance 400 ml Intake Oral 400 ml # Voids 5 Laboratory Tests Test 07/29/20 18:10 07/29/20 18:43 07/30/20 06:37 White Blood Count 8.1 K/UL (4.8-10.8) 6.7 K/UL (4.8-10.8) Red Blood Count 3.00 M/UL (4.20-5.40) L 3.00 M/UL (4.20-5.40) L Hemoglobin 9.7 G/DL (12.0-16.0) L 9.9 G/DL (12.0-16.0) L Hematocrit 30.3 % (37.0-47.0) L 31.3 % (37.0-47.0) L Mean Corpuscular Volume 101 FL (80-99) H 104 FL (80-99) H Mean Corpuscular Hemoglobin 32.4 PG (27.0-31.0) H 32.8 PG (27.0-31.0) H Mean Corpuscular Hemoglobin Concent 32.0 G/DL (32.0-36.0) 31.6 G/DL (32.0-36.0) L Red Cell Distribution Width 13.4 % (11.6-14.8) 13.5 % (11.6-14.8) Platelet Count 117 K/UL (150-450) L 114 K/UL (150-450) L Mean Platelet Volume 8.8 FL (6.5-10.1) 8.8 FL (6.5-10.1) Neutrophils (%) (Auto) 64.2 % (45.0-75.0) 63.7 % (45.0-75.0) Lymphocytes (%) (Auto) 23.4 % (20.0-45.0) 22.9 % (20.0-45.0) Monocytes (%) (Auto) 8.2 % (1.0-10.0) 8.8 % (1.0-10.0) Eosinophils (%) (Auto) 2.9 % (0.0-3.0) 3.1 % (0.0-3.0) H Basophils (%) (Auto) 1.3 % (0.0-2.0) 1.4 % (0.0-2.0) Prothrombin Time 21.5 SEC (9.30-11.50) H 20.7 SEC (9.30-11.50) H Prothromb Time International Ratio 2.1 (0.9-1.1) H 2.0 (0.9-1.1) H Activated Partial Thromboplast Time 36 SEC (23-33) H 36 SEC (23-33) H Sodium Level 144 MMOL/L (136-145) 143 MMOL/L (136-145) Potassium Level 4.0 MMOL/L (3.5-5.1) 4.0 MMOL/L (3.5-5.1) Chloride Level 107 MMOL/L (98-107) 106 MMOL/L (98-107) Carbon Dioxide Level 32 MMOL/L (21-32) 34 MMOL/L (21-32) H Anion Gap 5 mmol/L (5-15) 3 mmol/L (5-15) L Blood Urea Nitrogen 26 mg/dL (7-18) H 26 mg/dL (7-18) H Creatinine 1.1 MG/DL (0.55-1.30) 1.0 MG/DL (0.55-1.30) Estimat Glomerular Filtration Rate > 60 mL/min (>60) > 60 mL/min (>60) Glucose Level 116 MG/DL (74-106) H 97 MG/DL (74-106) Calcium Level 8.4 MG/DL (8.5-10.1) L 8.3 MG/DL (8.5-10.1) L Total Bilirubin 0.4 MG/DL (0.2-1.0) 0.4 MG/DL (0.2-1.0) Aspartate Amino Transf (AST/SGOT) 29 U/L (15-37) 29 U/L (15-37) Alanine Aminotransferase (ALT/SGPT) 33 U/L (12-78) 33 U/L (12-78) Alkaline Phosphatase 69 U/L (46-116) 65 U/L (46-116) Total Creatine Kinase 110 U/L (26-308) Troponin I 0.026 ng/mL (0.000-0.056) 0.024 ng/mL (0.000-0.056) Pro-B-Type Natriuretic Peptide 2679 pg/mL (0-125) H Total Protein 6.5 G/DL (6.4-8.2) 6.3 G/DL (6.4-8.2) L Albumin 3.3 G/DL (3.4-5.0) L 3.1 G/DL (3.4-5.0) L Globulin 3.2 g/dL 3.2 g/dL Albumin/Globulin Ratio 1.0 (1.0-2.7) 1.0 (1.0-2.7) Urine Color Yellow Urine Appearance Clear Urine pH 7 (4.5-8.0) Urine Specific [place] 1.010 (1.005-1.035) Urine Protein Negative (NEGATIVE) Urine Glucose (UA) Negative (NEGATIVE) Urine Ketones Negative (NEGATIVE) Urine Blood Negative (NEGATIVE) Urine Nitrite Negative (NEGATIVE) Urine Bilirubin Negative (NEGATIVE) Urine Urobilinogen Normal MG/DL (0.0-1.0) Urine Leukocyte Esterase 1+ (NEGATIVE) H Urine RBC 0-2 /HPF (0 - 2) Urine WBC 0-2 /HPF (0 - 2) Urine Squamous Epithelial Cells Occasional /LPF Urine Bacteria Occasional /HPF (NONE) Neutrophils % (Manual) Pending Lymphocytes % (Manual) Pending Platelet Estimate Pending Platelet Morphology Pending Erythrocyte Sedimentation Rate Pending Reticulocyte Count Pending Phosphorus Level 3.4 MG/DL (2.5-4.9) Magnesium Level 2.0 MG/DL (1.8-2.4) Iron Level Pending Unsaturated Iron Binding Pending Lactate Dehydrogenase 297 U/L (81-234) H C-Reactive Protein, Quantitative 0.5 mg/dL (0.00-0.90) Triglycerides Level 80 MG/DL (30-150) Cholesterol Level 152 MG/DL (< 200) LDL Cholesterol 83 mg/dL (<100) HDL Cholesterol 45 MG/DL (40-60) Cholesterol/HDL Ratio 3.4 (3.3-4.4) Carcinoembryonic Antigen Pending Vitamin B12 Level Pending Folate Pending Thyroid Stimulating Hormone (TSH) 1.070 uiU/mL (0.358-3.740) Microbiology Date/Time Source Procedure Growth Status 07/29/20 22:00 Rectum Received Michael Guerrero MD Jul 30, 2020 13:01
[2020-07-30 13:41] LABS: % IRON SATURATION 22 % (15-50); IRON 44 ug/dL (50-175); TOTAL IRON BINDING CAPACITY 203 ug/dL (250-450)
--- NOTE | 2020-07-30 13:59 | Consultation ---
DATE OF CONSULTATION: 07/30/2020 CARDIAC ELECTROPHYSIOLOGY CONSULTATION CONSULTING PHYSICIAN: Michael Guerrero MD. REFERRING PHYSICIAN: Yuri Escalera MD. REASON FOR CONSULTATION: Management of hypertension, atrial fibrillation, and evaluation of the patient's defibrillator. HISTORY OF PRESENT ILLNESS: The patient is a 65-year-old lady with history of hypertension, congestive heart failure as well as history of dilated cardiomyopathy as well as chronic atrial fibrillation who had undergone a defibrillator implantation originally in 2001 and then subsequently the battery changed with a [employer] defibrillator in 2012 as well as most recent one at [facility] on March 12, 2020 with another [employer] defibrillator. It is a dual-chamber device. The patient presented to the emergency room with increasing shortness of breath and palpitation. The patient was recently admitted to [facility] on July 11, 2020 with palpitation and shortness of breath and was found to have for preserved ejection fraction. REVIEW OF SYSTEMS: Negative other than what was mentioned in history of present illness. PAST MEDICAL HISTORY: As mentioned above. FAMILY HISTORY: Noncontributory. SOCIAL HISTORY: The patient lives at home. Does not smoke or drink alcohol. PHYSICAL EXAMINATION: VITAL SIGNS: Show blood pressure of 132/72, pulse is 60, respirations 18, and she is afebrile. HEAD AND NECK: Showed no JVD or carotid bruits. LUNGS: Clear. CARDIOVASCULAR: Regular S1 and S2 with no gallop. Defibrillator in left subclavian with multiple incision. ABDOMEN: Soft. EXTREMITIES: No pitting edema. LABORATORY AND DIAGNOSTIC DATA: Her EKG showed atrial fibrillation at baseline and ventricular paced rhythm. Labs show white count 6.7, hemoglobin 9.9, hematocrit 31.3, and platelet count 114. Sodium 142, potassium 4.0, BUN of 26, creatinine 1.0. Troponins are negative. BNP is 27,000. ASSESSMENT AND PLAN: 1. Status post dual-chamber [employer] defibrillator generator change in March 2020 at [facility]. We will re-interrogate device to make sure it is functioning normally. 2. Chronic atrial fibrillation. The rate is controlled on digoxin 0.125 mg daily and Coreg 25 mg b.i.d. that would be continued. The patient is also on anticoagulation with Coumadin. 3. Exacerbation of congestive heart failure. The patient has diastolic dysfunction. Ejection fraction is within normal range. The patient is on Lasix 40 mg IV b.i.d., Coreg 25 mg b.i.d., lisinopril 10 mg daily. 4. Chronic atrial fibrillation, again rate is controlled. 5. History of chest pain. The patient will be ruled out for myocardial infarction, likely due to congestive heart failure. 6. Fibromyalgia. 7. COPD. 8. Osteoarthritis of the knees. 9. Ventral hernia. Thank you very much for allowing me to participate in the care of this patient. Please do not hesitate to contact me for any questions regarding my evaluation. Sincerely, Michael Guerrero M.D. DR: Vianey JOB#: [id number] CC:
[2020-07-30 16:00] VITALS: BP 124/65
[2020-07-30] MEDS ORDERED: WARFARIN SOD ORAL SCH ×2 (17:00)
--- NOTE | 2020-07-30 17:13 | Diagnostic Imaging Report ---
Indication: Chest pain and cough Technique: One view of the chest Comparison: None Findings: The heart is enlarged. There is left chest bifocal and ICD. The lungs and pleural spaces are clear. Impression: Cardiomegaly. No acute process
--- NOTE | 2020-07-30 17:58 | Internal Med Progress Note ---
Subjective Date of Service: Jul 30, 2020 Physician Name BriceAngelo Attending Physician Yuri Escalera MD Current Medications Medications (Trade) Dose Ordered Sig/Nancy Route PRN Reason Start Time Stop Time Status Last Admin Dose Admin Acetaminophen (Tylenol) 650 mg Q4H PRN ORAL FEVER 07/29/20 19:00 08/28/20 18:59 Acetaminophen (Tylenol) 650 mg Q4H PRN ORAL Mild Pain (Pain Scale 1-3) 07/30/20 12:15 08/29/20 12:14 Albuterol/ Ipratropium (Albuterol/ Ipratropium) 3 ml Q4H PRN HHN Shortness of Breath 07/29/20 19:00 08/03/20 18:59 Ascorbic Acid (Vitamin C) 1,000 mg DAILY ORAL 07/30/20 09:00 08/29/20 08:59 07/30/20 10:05 Aspirin (ASA) 162 mg DAILY ORAL 07/30/20 09:00 09/13/20 08:59 07/30/20 10:05 Atorvastatin Calcium (Lipitor) 20 mg BEDTIME ORAL 07/30/20 21:00 10/28/20 20:59 Baclofen (Lioresal) 10 mg THREE TIMES A DAY ORAL 07/30/20 09:00 08/29/20 08:59 07/30/20 12:11 Carvedilol (Coreg) 25 mg EVERY 12 HOURS ORAL 07/30/20 00:00 08/29/20 00:00 07/30/20 01:15 Digoxin (Lanoxin) 0.125 mg DAILY ORAL 07/30/20 09:00 10/28/20 08:59 07/30/20 10:06 Diltiazem HCl (Cardizem) 10 mg Q1H PRN IV heart rate more than 120, 07/29/20 19:00 08/28/20 18:59 Diphenhydramine HCl (Benadryl) 25 mg Q6H PRN ORAL Itching 07/29/20 23:45 08/28/20 23:44 Docusate Sodium (Colace) 100 mg TWICE A DAY ORAL 07/30/20 09:00 08/29/20 08:59 07/30/20 10:06 Enalaprilat (Vasotec) 2.5 mg Q6H PRN IV sbp more than 160 07/29/20 19:00 08/28/20 18:59 Furosemide (Lasix) 40 mg EVERY 12 HOURS IV 07/30/20 00:00 08/29/20 00:00 07/30/20 10:05 Hydromorphone HCl (Dilaudid) 1 mg Q3H PRN IVP Severe Pain (Pain Scale 7-10) 07/30/20 12:00 08/06/20 11:59 07/30/20 15:19 Lidocaine (Lidoderm 5% PATCH) 1 patch DAILY PRN TDERMAL For Pain 07/29/20 23:45 10/27/20 23:44 07/30/20 14:43 Lisinopril (ZestriL) 10 mg DAILY ORAL 07/30/20 09:00 08/29/20 08:59 Magnesium Oxide (Mag-Ox 400mg) 400 mg DAILYPRN PRN ORAL Constipation 07/30/20 08:30 08/29/20 08:29 Multivitamins (Multivitamins) 1 tab DAILY ORAL 07/30/20 09:00 08/29/20 08:59 07/30/20 10:06 Ondansetron HCl (Zofran) 4 mg Q6H PRN IVP Nausea & Vomiting 07/29/20 19:00 08/28/20 18:59 07/30/20 10:21 Oxycodone HCl (Roxicodone) 15 mg Q6H PRN ORAL Moderate Breakthru Pain (5-7) 07/29/20 23:31 08/05/20 23:30 Polyethylene Glycol (Miralax) 17 gm DAILYPRN PRN ORAL Constipation 07/29/20 19:00 08/28/20 18:59 Potassium Chloride (K-Dur) 20 meq TWICE A DAY ORAL 07/30/20 09:00 10/28/20 08:59 07/30/20 10:05 Sucralfate (Carafate) 1 gm BEFORE MEALS AND HS ORAL 07/30/20 00:00 10/28/20 00:00 07/30/20 16:44 Temazepam (Restoril) 15 mg HSPRN PRN ORAL Insomnia first choice 07/29/20 19:00 08/05/20 18:59 07/30/20 03:08 Warfarin Sodium (Coumadin per pharmacy) 1 ea DAILY PRN MISC Per rx protocol 07/29/20 23:45 08/28/20 23:44 Warfarin Sodium (Coumadin/ Warfarin Sod) 6 mg COUMADIN ORAL 07/30/20 17:00 07/30/20 19:00 Zolpidem Tartrate (Ambien) 5 mg BEDTIME PRN ORAL Insomnia 07/29/20 23:45 08/05/20 23:44 Allergies: Coded Allergies: NITROGLYCERIN (Verified Allergy, Unknown, 01/15/19) PENICILLINS (Verified Allergy, Unknown, 01/15/19) Constitutional: Reports: no symptoms HEENT: Reports: no symptoms Cardiovascular: Reports: chest pain Respiratory: Reports: no symptoms Gastrointestinal/Abdominal: Reports: no symptoms Genitourinary: Reports: no symptoms Neurologic/Psychiatric: Reports: no symptoms Subjective 65 YO F with history of CHF and AICD admitted with chest pain. Cover for Int Pee-DR Escalera Objective Last Vital Signs Date Time Temp Pulse Resp B/P (MAP) Pulse Ox O2 Delivery O2 Flow Rate FiO2 07/30/20 16:00 98.1 59 18 124/65 (84) 95 07/30/20 09:00 Nasal Cannula 2.0 Laboratory Tests Test 07/29/20 18:10 07/29/20 18:43 07/30/20 06:37 White Blood Count 8.1 K/UL (4.8-10.8) 6.7 K/UL (4.8-10.8) Red Blood Count 3.00 M/UL (4.20-5.40) L 3.00 M/UL (4.20-5.40) L Hemoglobin 9.7 G/DL (12.0-16.0) L 9.9 G/DL (12.0-16.0) L Hematocrit 30.3 % (37.0-47.0) L 31.3 % (37.0-47.0) L Mean Corpuscular Volume 101 FL (80-99) H 104 FL (80-99) H Mean Corpuscular Hemoglobin 32.4 PG (27.0-31.0) H 32.8 PG (27.0-31.0) H Mean Corpuscular Hemoglobin Concent 32.0 G/DL (32.0-36.0) 31.6 G/DL (32.0-36.0) L Red Cell Distribution Width 13.4 % (11.6-14.8) 13.5 % (11.6-14.8) Platelet Count 117 K/UL (150-450) L 114 K/UL (150-450) L Mean Platelet Volume 8.8 FL (6.5-10.1) 8.8 FL (6.5-10.1) Neutrophils (%) (Auto) 64.2 % (45.0-75.0) 63.7 % (45.0-75.0) Lymphocytes (%) (Auto) 23.4 % (20.0-45.0) 22.9 % (20.0-45.0) Monocytes (%) (Auto) 8.2 % (1.0-10.0) 8.8 % (1.0-10.0) Eosinophils (%) (Auto) 2.9 % (0.0-3.0) 3.1 % (0.0-3.0) H Basophils (%) (Auto) 1.3 % (0.0-2.0) 1.4 % (0.0-2.0) Prothrombin Time 21.5 SEC (9.30-11.50) H 20.7 SEC (9.30-11.50) H Prothromb Time International Ratio 2.1 (0.9-1.1) H 2.0 (0.9-1.1) H Activated Partial Thromboplast Time 36 SEC (23-33) H 36 SEC (23-33) H Sodium Level 144 MMOL/L (136-145) 143 MMOL/L (136-145) Potassium Level 4.0 MMOL/L (3.5-5.1) 4.0 MMOL/L (3.5-5.1) Chloride Level 107 MMOL/L (98-107) 106 MMOL/L (98-107) Carbon Dioxide Level 32 MMOL/L (21-32) 34 MMOL/L (21-32) H Anion Gap 5 mmol/L (5-15) 3 mmol/L (5-15) L Blood Urea Nitrogen 26 mg/dL (7-18) H 26 mg/dL (7-18) H Creatinine 1.1 MG/DL (0.55-1.30) 1.0 MG/DL (0.55-1.30) Estimat Glomerular Filtration Rate > 60 mL/min (>60) > 60 mL/min (>60) Glucose Level 116 MG/DL (74-106) H 97 MG/DL (74-106) Calcium Level 8.4 MG/DL (8.5-10.1) L 8.3 MG/DL (8.5-10.1) L Total Bilirubin 0.4 MG/DL (0.2-1.0) 0.4 MG/DL (0.2-1.0) Aspartate Amino Transf (AST/SGOT) 29 U/L (15-37) 29 U/L (15-37) Alanine Aminotransferase (ALT/SGPT) 33 U/L (12-78) 33 U/L (12-78) Alkaline Phosphatase 69 U/L (46-116) 65 U/L (46-116) Total Creatine Kinase 110 U/L (26-308) Troponin I 0.026 ng/mL (0.000-0.056) 0.024 ng/mL (0.000-0.056) Pro-B-Type Natriuretic Peptide 2679 pg/mL (0-125) H Total Protein 6.5 G/DL (6.4-8.2) 6.3 G/DL (6.4-8.2) L Albumin 3.3 G/DL (3.4-5.0) L 3.1 G/DL (3.4-5.0) L Globulin 3.2 g/dL 3.2 g/dL Albumin/Globulin Ratio 1.0 (1.0-2.7) 1.0 (1.0-2.7) Urine Color Yellow Urine Appearance Clear Urine pH 7 (4.5-8.0) Urine Specific [place] 1.010 (1.005-1.035) Urine Protein Negative (NEGATIVE) Urine Glucose (UA) Negative (NEGATIVE) Urine Ketones Negative (NEGATIVE) Urine Blood Negative (NEGATIVE) Urine Nitrite Negative (NEGATIVE) Urine Bilirubin Negative (NEGATIVE) Urine Urobilinogen Normal MG/DL (0.0-1.0) Urine Leukocyte Esterase 1+ (NEGATIVE) H Urine RBC 0-2 /HPF (0 - 2) Urine WBC 0-2 /HPF (0 - 2) Urine Squamous Epithelial Cells Occasional /LPF Urine Bacteria Occasional /HPF (NONE) Differential Total Cells Counted 100 Neutrophils % (Manual) 61 % (45-75) Lymphocytes % (Manual) 24 % (20-45) Monocytes % (Manual) 11 % (1-10) H Eosinophils % (Manual) 4 % (0-3) H Basophils % (Manual) 0 % (0-2) Band Neutrophils 0 % (0-8) Platelet Estimate Decreased L Platelet Morphology Normal Hypochromasia 1+ Macrocytosis 1+ Erythrocyte Sedimentation Rate 39 MM/HR (0-30) H Reticulocyte Count 1.0 % (0.5-2.0) Phosphorus Level 3.4 MG/DL (2.5-4.9) Magnesium Level 2.0 MG/DL (1.8-2.4) Iron Level 44 ug/dL (50-175) L Total Iron Binding Capacity 203 ug/dL (250-450) L Percent Iron Saturation 22 % (15-50) Unsaturated Iron Binding 159 ug/dL (112-346) Lactate Dehydrogenase 297 U/L (81-234) H C-Reactive Protein, Quantitative 0.5 mg/dL (0.00-0.90) Triglycerides Level 80 MG/DL (30-150) Cholesterol Level 152 MG/DL (< 200) LDL Cholesterol 83 mg/dL (<100) HDL Cholesterol 45 MG/DL (40-60) Cholesterol/HDL Ratio 3.4 (3.3-4.4) Carcinoembryonic Antigen Pending Vitamin B12 Level 1038 PG/ML (193-986) H Folate 50.5 NG/ML (8.6-58.9) Thyroid Stimulating Hormone (TSH) 1.070 uiU/mL (0.358-3.740) Microbiology Date/Time Source Procedure Growth Status 07/29/20 22:00 Rectum Received Intake and Output 07/29/20 07/30/20 19:00 07:00 Intake Total 400 ml Balance 400 ml Intake Oral 400 ml # Voids 5 Objective PHYSICAL EXAMINATION: GENERAL: Patient is awake, responsive, in no acute distress. HEAD AND NECK: Pupils are equal and reactive to light. Extraocular movements are intact. Neck was supple. No JVD. LUNGS: Good air entry with no wheezing or rales. Decreased in bases. HEART: S1, S2. Irregular. Systolic ejection murmur left sternal border. No gallop. AICD in left-sided chest wall. ABDOMEN: Soft, nondistended, nontender. Positive bowel sounds. Mildly obese. Midline surgical scar was noted from prior surgery. Patient has a right-sided ventral hernia. EXTREMITIES: No cyanosis, clubbing. Trace edema bilateral lower extremities. NEUROLOGIC: Cranial nerves II through XII grossly intact. Motor is 5/5 in all extremities. RECTAL: Refused and deferred. GENITOURINARY: Refused and deferred. PSYCHIATRIC: Mood and affect is intact. Assessment/Plan Assessment/Plan ASSESSMENT: 1. Chest pain, possible acute coronary syndrome. 2. Acute on chronic congestive heart failure with preserved ejection fraction. 3. Ventral hernia without obstruction or gangrene. 4. Chronic atrial fibrillation. 5. Dilated cardiomyopathy. 6. Morbid obesity. 7. Fibromyalgia. 8. Hypertension. 9. COPD emphysema. 10. Severe osteoarthritis of the knees. 11. AICD in situ PLAN: 1. Admit patient to monitored unit 2. We will follow serial cardiac enzymes. 3. Dr. Calderon = Pulmonary Critical Care. 4. Start patient on Lasix IV. Resume home medication. 5. Code status is Full Code. 6. DVT prophylaxis, she is already on Coumadin. 7. Cardiology=Dr Guerrero 8. Echocardiogram pending Angelo Brice MD Jul 30, 2020 17:58
[2020-07-30 20:00] VITALS: BP 117/70
[2020-07-30] MEDS: Atorvastatin 20mg tab ORAL SCH (21:12)
[2020-07-30] MEDS: Zolpidem 5mg tab ORAL PRN (22:39)
[2020-07-31] VITALS (7 sets, daily range): BP systolic 96–134; BP diastolic 58–102
[2020-07-31] MEDS: HYDROmorphone 1mg/ml Carpuject IVP PRN ×4 (01:51→17:44)
[2020-07-31] MEDS: Sucralfate 1gm tab ORAL SCH ×4 (06:17→21:07)
[2020-07-31 07:10] LABS: BASOPHILS % (AUTO) 1.7 % (0.0-2.0); EOSINOPHILS % (AUTO) 3.6 % (0.0-3.0); HEMATOCRIT 30.2 % (37.0-47.0); HEMOGLOBIN 9.9 G/DL (12.0-16.0); LYMPHOCYTES % (AUTO) 22.9 % (20.0-45.0); MEAN CORPUSCULAR VOLUME 98 FL (80-99); NEUTROPHILS % (AUTO) 62.8 % (45.0-75.0); PLATELET COUNT 125 K/UL (150-450); RED BLOOD COUNT 3.06 M/UL (4.20-5.40); RED CELL DISTRIBUTION WIDTH 14.1 % (11.6-14.8); WHITE BLOOD COUNT 6.6 K/UL (4.8-10.8)
[2020-07-31 07:26] LABS: INR 1.7 (0.9-1.1)
[2020-07-31 07:36] LABS: ALANINE AMINOTRANSFERASE 36 U/L (12-78); ALBUMIN 3.1 G/DL (3.4-5.0); ALKALINE PHOSPHATASE 72 U/L (46-116); ANION GAP 2 mmol/L (5-15); ASPARTATE AMINO TRANSFERASE 27 U/L (15-37); BILIRUBIN,TOTAL 0.3 MG/DL (0.2-1.0); BLOOD UREA NITROGEN 24 mg/dL (7-18); CALCIUM 8.3 MG/DL (8.5-10.1); CARBON DIOXIDE 35 MMOL/L (21-32); CHLORIDE 108 MMOL/L (98-107); CREATININE 1.1 MG/DL (0.55-1.30); POTASSIUM 4.6 MMOL/L (3.5-5.1); SODIUM 145 MMOL/L (136-145)
[2020-07-31] MEDS: Docusate 100mg cap ORAL SCH ×2 (08:43→17:10)
[2020-07-31] MEDS: Carvedilol 25mg Tab ORAL SCH ×2 (08:43→21:00)
[2020-07-31] MEDS: Ascorbic Acid 500mg tab ORAL SCH (08:45)
[2020-07-31] MEDS: Digoxin 0.125mg tab ORAL SCH (08:45)
[2020-07-31] MEDS: Aspirin Baby 81mg ORAL SCH (08:47)
[2020-07-31] MEDS: Lisinopril 10mg tab ORAL SCH (08:47)
--- NOTE | 2020-07-31 09:10 | Diagnostic Imaging Report ---
EXAM: XR Chest, 1 View CLINICAL HISTORY: DYSPNEA TECHNIQUE: Frontal view of the chest. COMPARISON: 07/29/20 FINDINGS: Lungs: There is unchanged mild pulmonary venous congestion. No consolidating infiltrates identified. Pleural space: Unremarkable. No pneumothorax. Heart: Unremarkable. No cardiomegaly. Mediastinum: Unremarkable. Bones/joints: Unremarkable. Tubes, lines and devices: There are left subclavian cardiac leads in unchanged position. IMPRESSION: There is unchanged mild pulmonary venous congestion. No consolidating infiltrates identified.
--- NOTE | 2020-07-31 10:17 | Cardiac Electrophysiology PN ---
Assessment/Plan Assessment/Plan 1. Status post dual-chamber [place] defibrillator generator change in March 2020 at [facility]. We will re-interrogate device to make sure it is functioning normally. 2. Chronic atrial fibrillation. The rate is controlled on digoxin 0.125 mg daily and Coreg 25 mg b.i.d. and on anticoagulation with Coumadin. 3. Exacerbation of congestive heart failure. The patient has diastolic dysfunction. Ejection fraction is within normal range. On Lasix 40 mg IV b.i.d., Coreg 25 mg b.i.d., lisinopril 10 mg daily. 4. Chronic atrial fibrillation, again rate is controlled. 5. History of chest pain. Ruled out for myocardial infarction 6. Fibromyalgia. 7. COPD. 8. Osteoarthritis of the knees. 9. Ventral hernia. Subjective Subjective No CP or SOB. V paced Objective Last 24 Hour Vital Signs Date Time Temp Pulse Resp B/P (MAP) Pulse Ox O2 Delivery O2 Flow Rate FiO2 07/31/20 09:12 Nasal Cannula 1.0 07/31/20 08:47 114/102 07/31/20 08:45 60 07/31/20 08:43 60 114/102 07/31/20 08:00 60 07/31/20 08:00 97.9 60 18 114/102 (106) 98 07/31/20 04:00 60 07/31/20 04:00 97.5 64 20 118/74 (89) 100 07/31/20 00:00 60 07/31/20 00:00 97.7 60 20 123/68 (86) 98 07/30/20 21:14 57 117/70 07/30/20 21:00 Nasal Cannula 1.0 07/30/20 20:00 97.9 57 20 117/70 (86) 100 07/30/20 20:00 64 07/30/20 16:00 98.1 59 18 124/65 (84) 95 07/30/20 16:00 60 07/30/20 12:00 60 07/30/20 12:00 97.9 60 18 133/72 (92) 96 Intake and Output 07/30/20 07/31/20 19:00 07:00 Intake Total 480 ml Output Total 900 ml Balance -420 ml Intake Oral 480 ml Output Urine Total 900 ml Laboratory Tests Test 07/31/20 01:40 07/31/20 06:03 Stool Occult Blood Pending White Blood Count 6.6 K/UL (4.8-10.8) Red Blood Count 3.06 M/UL (4.20-5.40) L Hemoglobin 9.9 G/DL (12.0-16.0) L Hematocrit 30.2 % (37.0-47.0) L Mean Corpuscular Volume 98 FL (80-99) Mean Corpuscular Hemoglobin 32.5 PG (27.0-31.0) H Mean Corpuscular Hemoglobin Concent 33.0 G/DL (32.0-36.0) Red Cell Distribution Width 14.1 % (11.6-14.8) Platelet Count 125 K/UL (150-450) L Mean Platelet Volume 9.3 FL (6.5-10.1) Neutrophils (%) (Auto) 62.8 % (45.0-75.0) Lymphocytes (%) (Auto) 22.9 % (20.0-45.0) Monocytes (%) (Auto) 9.0 % (1.0-10.0) Eosinophils (%) (Auto) 3.6 % (0.0-3.0) H Basophils (%) (Auto) 1.7 % (0.0-2.0) Prothrombin Time 18.2 SEC (9.30-11.50) H Prothromb Time International Ratio 1.7 (0.9-1.1) H Sodium Level 145 MMOL/L (136-145) Potassium Level 4.6 MMOL/L (3.5-5.1) Chloride Level 108 MMOL/L (98-107) H Carbon Dioxide Level 35 MMOL/L (21-32) H Anion Gap 2 mmol/L (5-15) L Blood Urea Nitrogen 24 mg/dL (7-18) H Creatinine 1.1 MG/DL (0.55-1.30) Estimat Glomerular Filtration Rate > 60 mL/min (>60) Glucose Level 104 MG/DL (74-106) Calcium Level 8.3 MG/DL (8.5-10.1) L Total Bilirubin 0.3 MG/DL (0.2-1.0) Aspartate Amino Transf (AST/SGOT) 27 U/L (15-37) Alanine Aminotransferase (ALT/SGPT) 36 U/L (12-78) Alkaline Phosphatase 72 U/L (46-116) Troponin I 0.023 ng/mL (0.000-0.056) Pro-B-Type Natriuretic Peptide 2106 pg/mL (0-125) H Total Protein 6.2 G/DL (6.4-8.2) L Albumin 3.1 G/DL (3.4-5.0) L Globulin 3.1 g/dL Albumin/Globulin Ratio 1.0 (1.0-2.7) Digoxin Level 0.8 NG/ML (0.9-2.0) L Microbiology Date/Time Source Procedure Growth Status 07/29/20 22:00 Rectum Received 07/29/20 22:00 Nasal Nares MRSA Culture - Final NO METHICILLIN RESISTANT STAPH AUREUS... Complete Objective HEAD AND NECK: No JVD or carotid bruits. LUNGS: Clear. CARDIOVASCULAR: Regular S1 and S2 with no gallop. Defibrillator in left subclavian with multiple incision. ABDOMEN: Soft. EXTREMITIES: No pitting edema. Michael Guerrero MD Jul 31, 2020 10:17
[2020-07-31] MEDS: guaiFENesin /DM 10ml syrup ORAL PRN ×2 (11:05→18:43)
--- NOTE | 2020-07-31 11:46 | Pulmonology Progress Note ---
Subjective ROS Limited/Unobtainable: Yes Constitutional: Reports: no symptoms HEENT: Repors: no symptoms Allergies: Coded Allergies: NITROGLYCERIN (Verified Allergy, Unknown, 01/15/19) PENICILLINS (Verified Allergy, Unknown, 01/15/19) Objective Last 24 Hour Vital Signs Date Time Temp Pulse Resp B/P (MAP) Pulse Ox O2 Delivery O2 Flow Rate FiO2 07/31/20 09:12 Nasal Cannula 1.0 07/31/20 08:47 114/102 07/31/20 08:45 60 07/31/20 08:43 60 114/102 07/31/20 08:00 60 07/31/20 08:00 97.9 60 18 114/102 (106) 98 07/31/20 04:00 60 07/31/20 04:00 97.5 64 20 118/74 (89) 100 07/31/20 00:00 60 07/31/20 00:00 97.7 60 20 123/68 (86) 98 07/30/20 21:14 57 117/70 07/30/20 21:00 Nasal Cannula 1.0 07/30/20 20:00 97.9 57 20 117/70 (86) 100 07/30/20 20:00 64 07/30/20 16:00 98.1 59 18 124/65 (84) 95 07/30/20 16:00 60 07/30/20 12:00 60 07/30/20 12:00 97.9 60 18 133/72 (92) 96 Intake and Output 07/30/20 07/31/20 19:00 07:00 Intake Total 480 ml Output Total 900 ml Balance -420 ml Intake Oral 480 ml Output Urine Total 900 ml General Appearance: WD/WN HEENT: normocephalic, atraumatic Respiratory: chest wall non-tender, lungs clear, no respiratory distress Cardiovascular: normal peripheral pulses Abdomen: normal bowel sounds, soft, non tender Extremities: no cyanosis Microbiology Date/Time Source Procedure Growth Status 07/29/20 22:00 Rectum Received 07/29/20 22:00 Nasal Nares MRSA Culture - Final NO METHICILLIN RESISTANT STAPH AUREUS... Complete Laboratory Tests 07/31/20 01:40: Stool Occult Blood [Pending] 07/31/20 06:03: White Blood Count 6.6, Red Blood Count 3.06L, Hemoglobin 9.9L, Hematocrit 30.2L, Mean Corpuscular Volume 98, Mean Corpuscular Hemoglobin 32.5H, Mean Corpuscular Hemoglobin Concent 33.0, Red Cell Distribution Width 14.1, Platelet Count 125L, Mean Platelet Volume 9.3, Neutrophils (%) (Auto) 62.8, Lymphocytes (%) (Auto) 22.9, Monocytes (%) (Auto) 9.0, Eosinophils (%) (Auto) 3.6H, Basophils (%) (Auto) 1.7, Prothrombin Time 18.2H, Prothromb Time International Ratio 1.7H, Sodium Level 145, Potassium Level 4.6, Chloride Level 108H, Carbon Dioxide Level 35H, Anion Gap 2L, Blood Urea Nitrogen 24H, Creatinine 1.1, Estimat Glomerular Filtration Rate > 60, Glucose Level 104, Calcium Level 8.3L, Total Bilirubin 0.3, Aspartate Amino Transf (AST/SGOT) 27, Alanine Aminotransferase (ALT/SGPT) 36, Alkaline Phosphatase 72, Troponin I 0.023, Pro-B-Type Natriuretic Peptide 2106H, Total Protein 6.2L, Albumin 3.1L, Globulin 3.1, Albumin/Globulin Ratio 1.0, Digoxin Level 0.8L Current Medications Medications (Trade) Dose Ordered Sig/Nancy Route PRN Reason Start Time Stop Time Status Last Admin Dose Admin Acetaminophen (Tylenol) 650 mg Q4H PRN ORAL FEVER 07/29/20 19:00 08/28/20 18:59 Acetaminophen (Tylenol) 650 mg Q4H PRN ORAL Mild Pain (Pain Scale 1-3) 07/30/20 12:15 08/29/20 12:14 Albuterol/ Ipratropium (Albuterol/ Ipratropium) 3 ml Q4H PRN HHN Shortness of Breath 07/29/20 19:00 08/03/20 18:59 Ascorbic Acid (Vitamin C) 1,000 mg DAILY ORAL 07/30/20 09:00 08/29/20 08:59 07/31/20 08:45 Aspirin (ASA) 162 mg DAILY ORAL 07/30/20 09:00 09/13/20 08:59 07/31/20 08:47 Atorvastatin Calcium (Lipitor) 20 mg BEDTIME ORAL 07/30/20 21:00 2/23/21 20:59 07/30/20 21:12 Baclofen (Lioresal) 10 mg THREE TIMES A DAY ORAL 07/30/20 09:00 08/29/20 08:59 07/31/20 08:47 Carvedilol (Coreg) 25 mg EVERY 12 HOURS ORAL 07/30/20 00:00 08/29/20 00:00 07/31/20 08:43 Digoxin (Lanoxin) 0.125 mg DAILY ORAL 07/30/20 09:00 10/28/20 08:59 07/31/20 08:45 Diltiazem HCl (Cardizem) 10 mg Q1H PRN IV heart rate more than 120, 07/29/20 19:00 08/28/20 18:59 Diphenhydramine HCl (Benadryl) 25 mg Q6H PRN ORAL Itching 07/29/20 23:45 08/28/20 23:44 Docusate Sodium (Colace) 100 mg TWICE A DAY ORAL 07/30/20 09:00 08/29/20 08:59 07/31/20 08:43 Enalaprilat (Vasotec) 2.5 mg Q6H PRN IV sbp more than 160 07/29/20 19:00 08/28/20 18:59 Furosemide (Lasix) 40 mg EVERY 12 HOURS IV 07/30/20 00:00 08/29/20 00:00 07/31/20 09:44 Guaifenesin/ Dextromethorphan (Robitussin DM Syrup) 5 ml Q6H PRN ORAL For Cough 07/31/20 10:00 10/29/20 09:59 07/31/20 11:05 Hydromorphone HCl (Dilaudid) 1 mg Q3H PRN IVP Severe Pain (Pain Scale 7-10) 07/30/20 12:00 08/06/20 11:59 07/31/20 11:15 Lidocaine (Lidoderm 5% PATCH) 1 patch DAILY PRN TDERMAL For Pain 07/29/20 23:45 10/27/20 23:44 07/31/20 09:47 Lisinopril (ZestriL) 10 mg DAILY ORAL 07/30/20 09:00 08/29/20 08:59 07/31/20 08:47 Magnesium Oxide (Mag-Ox 400mg) 400 mg DAILYPRN PRN ORAL Constipation 07/30/20 08:30 08/29/20 08:29 Multivitamins (Multivitamins) 1 tab DAILY ORAL 07/30/20 09:00 08/29/20 08:59 07/31/20 08:45 Ondansetron HCl (Zofran) 4 mg Q6H PRN IVP Nausea & Vomiting 07/29/20 19:00 08/28/20 18:59 07/31/20 06:24 Oxycodone HCl (Roxicodone) 15 mg Q6H PRN ORAL Moderate Breakthru Pain (5-7) 07/29/20 23:31 08/05/20 23:30 Polyethylene Glycol (Miralax) 17 gm DAILYPRN PRN ORAL Constipation 07/29/20 19:00 08/28/20 18:59 Potassium Chloride (K-Dur) 20 meq TWICE A DAY ORAL 07/30/20 09:00 10/28/20 08:59 07/31/20 08:48 Sucralfate (Carafate) 1 gm BEFORE MEALS AND HS ORAL 07/30/20 00:00 10/28/20 00:00 07/31/20 11:05 Warfarin Sodium (Coumadin per pharmacy) 1 ea DAILY PRN MISC Per rx protocol 07/29/20 23:45 08/28/20 23:44 Zolpidem Tartrate (Ambien) 10 mg BEDTIME PRN ORAL Insomnia 07/30/20 22:15 08/05/20 23:44 07/30/20 22:39 Assessment/Plan Problems: (1) Chronic atrial fibrillation (2) Chronic anticoagulation (3) Macrocytic anemia (4) ACS (acute coronary syndrome) (5) Pacemaker Assessment/Plan all reviewed pain is better controlled telemetry monitoring echocardiogram titrate cardiac meds pharmacy to dose coumadin pain management pt is asking for Zarina Estrada MD Jul 31, 2020 11:46
[2020-07-31] MEDS ORDERED: OXYCODONE HCL10 MG ORAL (13:32)
[2020-07-31] MEDS ORDERED: DIGOXIN125 MCG ORAL (13:32)
[2020-07-31] MEDS ORDERED: IRON 100 PLUS1 EACH PO (13:41)
[2020-07-31] MEDS ORDERED: CALCIUM + D3 E1 EACH PO (13:44)
[2020-07-31] MEDS ORDERED: VITAMIN E1000 UNI4 PO (13:45)
--- NOTE | 2020-07-31 13:46 | Internal Med Progress Note ---
Subjective Date of Service: Jul 31, 2020 Physician Name Brice,Angelo Attending Physician Yuri Escalera MD Current Medications Medications (Trade) Dose Ordered Sig/Nancy Route PRN Reason Start Time Stop Time Status Last Admin Dose Admin Acetaminophen (Tylenol) 650 mg Q4H PRN ORAL FEVER 07/29/20 19:00 08/28/20 18:59 Acetaminophen (Tylenol) 650 mg Q4H PRN ORAL Mild Pain (Pain Scale 1-3) 07/30/20 12:15 08/29/20 12:14 Albuterol/ Ipratropium (Albuterol/ Ipratropium) 3 ml Q4H PRN HHN Shortness of Breath 07/29/20 19:00 08/03/20 18:59 Ascorbic Acid (Vitamin C) 1,000 mg DAILY ORAL 07/30/20 09:00 08/29/20 08:59 07/31/20 08:45 Aspirin (ASA) 162 mg DAILY ORAL 07/30/20 09:00 09/13/20 08:59 07/31/20 08:47 Atorvastatin Calcium (Lipitor) 20 mg BEDTIME ORAL 07/30/20 21:00 10/28/20 20:59 07/30/20 21:12 Baclofen (Lioresal) 10 mg THREE TIMES A DAY ORAL 07/30/20 09:00 08/29/20 08:59 07/31/20 12:24 Carvedilol (Coreg) 25 mg EVERY 12 HOURS ORAL 07/30/20 00:00 08/29/20 00:00 07/31/20 08:43 Digoxin (Lanoxin) 0.125 mg DAILY ORAL 07/30/20 09:00 10/28/20 08:59 07/31/20 08:45 Diltiazem HCl (Cardizem) 10 mg Q1H PRN IV heart rate more than 120, 07/29/20 19:00 08/28/20 18:59 Diphenhydramine HCl (Benadryl) 25 mg Q6H PRN ORAL Itching 07/29/20 23:45 08/28/20 23:44 Docusate Sodium (Colace) 100 mg TWICE A DAY ORAL 07/30/20 09:00 08/29/20 08:59 07/31/20 08:43 Enalaprilat (Vasotec) 2.5 mg Q6H PRN IV sbp more than 160 07/29/20 19:00 08/28/20 18:59 Furosemide (Lasix) 40 mg EVERY 12 HOURS IV 07/30/20 00:00 08/29/20 00:00 07/31/20 09:44 Guaifenesin/ Dextromethorphan (Robitussin DM Syrup) 5 ml Q6H PRN ORAL For Cough 07/31/20 10:00 10/29/20 09:59 07/31/20 11:05 Hydromorphone HCl (Dilaudid) 1 mg Q3H PRN IVP Severe Pain (Pain Scale 7-10) 07/30/20 12:00 08/06/20 11:59 07/31/20 11:15 Lidocaine (Lidoderm 5% PATCH) 1 patch DAILY PRN TDERMAL For Pain 07/29/20 23:45 10/27/20 23:44 07/31/20 09:47 Lisinopril (ZestriL) 10 mg DAILY ORAL 07/30/20 09:00 08/29/20 08:59 07/31/20 08:47 Magnesium Oxide (Mag-Ox 400mg) 400 mg DAILYPRN PRN ORAL Constipation 07/30/20 08:30 08/29/20 08:29 Multivitamins (Multivitamins) 1 tab DAILY ORAL 07/30/20 09:00 08/29/20 08:59 07/31/20 08:45 Ondansetron HCl (Zofran) 4 mg Q6H PRN IVP Nausea & Vomiting 07/29/20 19:00 08/28/20 18:59 07/31/20 12:30 Oxycodone HCl (Roxicodone) 15 mg Q6H PRN ORAL Moderate Breakthru Pain (5-7) 07/29/20 23:31 08/05/20 23:30 Polyethylene Glycol (Miralax) 17 gm DAILYPRN PRN ORAL Constipation 07/29/20 19:00 08/28/20 18:59 Potassium Chloride (K-Dur) 20 meq TWICE A DAY ORAL 07/30/20 09:00 10/28/20 08:59 07/31/20 08:48 Sucralfate (Carafate) 1 gm BEFORE MEALS AND HS ORAL 07/30/20 00:00 10/28/20 00:00 07/31/20 11:05 Warfarin Sodium (Coumadin per pharmacy) 1 ea DAILY PRN MISC Per rx protocol 07/29/20 23:45 08/28/20 23:44 Warfarin Sodium (Coumadin/ Warfarin Sod) 6 mg COUMADIN ORAL 07/31/20 17:00 07/31/20 18:00 Zolpidem Tartrate (Ambien) 10 mg BEDTIME PRN ORAL Insomnia 07/30/20 22:15 08/05/20 23:44 07/30/20 22:39 Allergies: Coded Allergies: NITROGLYCERIN (Verified Allergy, Unknown, 01/15/19) PENICILLINS (Verified Allergy, Unknown, 01/15/19) ROS Limited/Unobtainable: No Constitutional: Reports: no symptoms Cardiovascular: Reports: chest pain Respiratory: Reports: no symptoms Gastrointestinal/Abdominal: Reports: no symptoms Genitourinary: Reports: no symptoms Neurologic/Psychiatric: Reports: no symptoms Subjective 65 YO F with history of CHF and AICD admitted with chest pain. Cover for Int Pee-DR Escalera Objective Last Vital Signs Date Time Temp Pulse Resp B/P (MAP) Pulse Ox O2 Delivery O2 Flow Rate FiO2 07/31/20 12:00 98.1 63 18 114/60 (78) 97 07/31/20 09:12 Nasal Cannula 1.0 Laboratory Tests Test 07/31/20 01:40 07/31/20 06:03 Stool Occult Blood Pending White Blood Count 6.6 K/UL (4.8-10.8) Red Blood Count 3.06 M/UL (4.20-5.40) L Hemoglobin 9.9 G/DL (12.0-16.0) L Hematocrit 30.2 % (37.0-47.0) L Mean Corpuscular Volume 98 FL (80-99) Mean Corpuscular Hemoglobin 32.5 PG (27.0-31.0) H Mean Corpuscular Hemoglobin Concent 33.0 G/DL (32.0-36.0) Red Cell Distribution Width 14.1 % (11.6-14.8) Platelet Count 125 K/UL (150-450) L Mean Platelet Volume 9.3 FL (6.5-10.1) Neutrophils (%) (Auto) 62.8 % (45.0-75.0) Lymphocytes (%) (Auto) 22.9 % (20.0-45.0) Monocytes (%) (Auto) 9.0 % (1.0-10.0) Eosinophils (%) (Auto) 3.6 % (0.0-3.0) H Basophils (%) (Auto) 1.7 % (0.0-2.0) Prothrombin Time 18.2 SEC (9.30-11.50) H Prothromb Time International Ratio 1.7 (0.9-1.1) H Sodium Level 145 MMOL/L (136-145) Potassium Level 4.6 MMOL/L (3.5-5.1) Chloride Level 108 MMOL/L (98-107) H Carbon Dioxide Level 35 MMOL/L (21-32) H Anion Gap 2 mmol/L (5-15) L Blood Urea Nitrogen 24 mg/dL (7-18) H Creatinine 1.1 MG/DL (0.55-1.30) Estimat Glomerular Filtration Rate > 60 mL/min (>60) Glucose Level 104 MG/DL (74-106) Calcium Level 8.3 MG/DL (8.5-10.1) L Total Bilirubin 0.3 MG/DL (0.2-1.0) Aspartate Amino Transf (AST/SGOT) 27 U/L (15-37) Alanine Aminotransferase (ALT/SGPT) 36 U/L (12-78) Alkaline Phosphatase 72 U/L (46-116) Troponin I 0.023 ng/mL (0.000-0.056) Pro-B-Type Natriuretic Peptide 2106 pg/mL (0-125) H Total Protein 6.2 G/DL (6.4-8.2) L Albumin 3.1 G/DL (3.4-5.0) L Globulin 3.1 g/dL Albumin/Globulin Ratio 1.0 (1.0-2.7) Digoxin Level 0.8 NG/ML (0.9-2.0) L Microbiology Date/Time Source Procedure Growth Status 07/29/20 22:00 Rectum Received 07/29/20 22:00 Nasal Nares MRSA Culture - Final NO METHICILLIN RESISTANT STAPH AUREUS... Complete Intake and Output 07/30/20 07/31/20 19:00 07:00 Intake Total 480 ml Output Total 900 ml Balance -420 ml Intake Oral 480 ml Output Urine Total 900 ml Objective PHYSICAL EXAMINATION: GENERAL: Patient is awake, responsive, in no acute distress. HEAD AND NECK: Pupils are equal and reactive to light. Extraocular movements are intact. Neck was supple. No JVD. LUNGS: Good air entry with no wheezing or rales. Decreased in bases. HEART: S1, S2. Irregular. Systolic ejection murmur left sternal border. No gallop. AICD in left-sided chest wall. ABDOMEN: Soft, nondistended, nontender. Positive bowel sounds. Mildly obese. Midline surgical scar was noted from prior surgery. Patient has a right-sided ventral hernia. EXTREMITIES: No cyanosis, clubbing. Trace edema bilateral lower extremities. NEUROLOGIC: Cranial nerves II through XII grossly intact. Motor is 5/5 in all extremities. RECTAL: Refused and deferred. GENITOURINARY: Refused and deferred. PSYCHIATRIC: Mood and affect is intact. Assessment/Plan Assessment/Plan ASSESSMENT: 1. Chest pain, possible acute coronary syndrome. 2. Acute on chronic congestive heart failure; diastolic dysfunction 3. Ventral hernia without obstruction or gangrene. 4. Chronic atrial fibrillation. 5. Dilated cardiomyopathy. 6. Morbid obesity. 7. Fibromyalgia. 8. Hypertension. 9. COPD emphysema. 10. Severe osteoarthritis of the knees. 11. AICD in situ PLAN: 1. Admit patient to monitored unit 2. We will follow serial cardiac enzymes. 3. Dr. Calderon = Pulmonary Critical Care. 4. Start patient on Lasix IV. Resume home medication. 5. Code status is Full Code. 6. DVT prophylaxis, she is already on Coumadin. 7. Cardiology=Dr Guerrero 8. Echocardiogram LVEF=60% Angelo Brice MD Jul 31, 2020 13:46
[2020-07-31] MEDS ORDERED: VITAMIN B COMP1 EAC7 PO (13:49)
[2020-07-31] MEDS ORDERED: WARFARIN SOD ORAL SCH ×2 (17:00)
[2020-07-31] MEDS: Atorvastatin 20mg tab ORAL SCH (21:06)
[2020-07-31] MEDS: Zolpidem 5mg tab ORAL PRN (21:08)
[2020-08-01] VITALS: BP 123/57
[2020-08-01] MEDS: HYDROmorphone 1mg/ml Carpuject IVP PRN ×6 (01:19→19:55)
[2020-08-01 04:00] VITALS: BP 144/66
[2020-08-01] MEDS: Sucralfate 1gm tab ORAL SCH ×4 (06:25→20:52)
[2020-08-01 07:06] LABS: INR 1.6 (0.9-1.1)
[2020-08-01 07:08] LABS: BASOPHILS % (AUTO) 1.9 % (0.0-2.0); EOSINOPHILS % (AUTO) 3.9 % (0.0-3.0); HEMATOCRIT 29.7 % (37.0-47.0); HEMOGLOBIN 10.2 G/DL (12.0-16.0); LYMPHOCYTES % (AUTO) 23.6 % (20.0-45.0); MEAN CORPUSCULAR VOLUME 96 FL (80-99); MONOCYTES % (AUTO) 8.7 % (1.0-10.0); NEUTROPHILS % (AUTO) 61.9 % (45.0-75.0); PLATELET COUNT 123 K/UL (150-450); RED BLOOD COUNT 3.09 M/UL (4.20-5.40); RED CELL DISTRIBUTION WIDTH 14.1 % (11.6-14.8); WHITE BLOOD COUNT 7.4 K/UL (4.8-10.8)
[2020-08-01 07:36] LABS: ANION GAP 2 mmol/L (5-15); BLOOD UREA NITROGEN 21 mg/dL (7-18); CALCIUM 8.7 MG/DL (8.5-10.1); CARBON DIOXIDE 34 MMOL/L (21-32); CHLORIDE 105 MMOL/L (98-107); POTASSIUM 4.2 MMOL/L (3.5-5.1); SODIUM 141 MMOL/L (136-145)
[2020-08-01 08:00] VITALS: BP 132/85
[2020-08-01] MEDS: Lisinopril 10mg tab ORAL SCH (08:46)
[2020-08-01] MEDS: Ascorbic Acid 500mg tab ORAL SCH (08:46)
[2020-08-01] MEDS: Carvedilol 25mg Tab ORAL SCH ×2 (08:46→21:03)
[2020-08-01] MEDS: Aspirin Baby 81mg ORAL SCH (08:47)
[2020-08-01] MEDS: Docusate 100mg cap ORAL SCH ×2 (08:47→17:40)
[2020-08-01] MEDS: Digoxin 0.125mg tab ORAL SCH (08:48)
--- NOTE | 2020-08-01 11:28 | Cardiac Electrophysiology PN ---
Assessment/Plan Assessment/Plan 1. Status post dual-chamber [place] defibrillator generator change in March 2020 at [facility]. Interrogated and showed Nl Fx 2. Chronic atrial fibrillation. On digoxin 0.125 mg daily and Coreg 25 mg b.i.d. and Coumadin. 3. Exacerbation of congestive heart failure. The patient has diastolic dysfunction. Ejection fraction is within normal range. On Lasix 40 mg IV b.i.d., Coreg 25 mg b.i.d., Dig, lisinopril 10 mg daily. 4. Left shoulder and neck pain 5. Left chest pain. Mostly shoulder pain. Ruled out for myocardial infarction 6. Fibromyalgia. 7. COPD. 8. Osteoarthritis of the knees. 9. Ventral hernia. Subjective Subjective No CP or SOB. V paced. ICD interrogated and showed Nl Fx. Has Right neck and shoulder pain Objective Last 24 Hour Vital Signs Date Time Temp Pulse Resp B/P (MAP) Pulse Ox O2 Delivery O2 Flow Rate FiO2 08/01/20 09:00 Nasal Cannula 1.0 08/01/20 08:48 60 08/01/20 08:46 132/85 08/01/20 08:46 60 132/85 08/01/20 08:00 97.9 60 20 132/85 (101) 98 08/01/20 08:00 60 08/01/20 04:00 60 08/01/20 04:00 97.7 61 18 144/66 (92) 100 08/01/20 00:00 97.6 62 18 123/57 (79) 100 08/01/20 00:00 60 07/31/20 21:00 Nasal Cannula 1.0 07/31/20 21:00 60 132/58 07/31/20 20:00 60 07/31/20 20:00 97.9 60 20 132/58 (82) 99 07/31/20 18:14 97.7 07/31/20 17:44 61 20 134/70 (91) 98 07/31/20 16:05 97.7 61 20 96/81 (86) 98 07/31/20 16:00 60 07/31/20 12:00 98.1 63 18 114/60 (78) 97 07/31/20 12:00 60 07/31/20 11:45 97.9 Intake and Output 07/31/20 08/01/20 19:00 07:00 Intake Total 360 ml Output Total 700 ml Balance -340 ml Intake Oral 360 ml Output Urine Total 700 ml # Voids 2 Laboratory Tests Test 08/01/20 06:21 White Blood Count 7.4 K/UL (4.8-10.8) Red Blood Count 3.09 M/UL (4.20-5.40) L Hemoglobin 10.2 G/DL (12.0-16.0) L Hematocrit 29.7 % (37.0-47.0) L Mean Corpuscular Volume 96 FL (80-99) Mean Corpuscular Hemoglobin 33.0 PG (27.0-31.0) H Mean Corpuscular Hemoglobin Concent 34.2 G/DL (32.0-36.0) Red Cell Distribution Width 14.1 % (11.6-14.8) Platelet Count 123 K/UL (150-450) L Mean Platelet Volume 9.5 FL (6.5-10.1) Neutrophils (%) (Auto) 61.9 % (45.0-75.0) Lymphocytes (%) (Auto) 23.6 % (20.0-45.0) Monocytes (%) (Auto) 8.7 % (1.0-10.0) Eosinophils (%) (Auto) 3.9 % (0.0-3.0) H Basophils (%) (Auto) 1.9 % (0.0-2.0) Prothrombin Time 17.5 SEC (9.30-11.50) H Prothromb Time International Ratio 1.6 (0.9-1.1) H Sodium Level 141 MMOL/L (136-145) Potassium Level 4.2 MMOL/L (3.5-5.1) Chloride Level 105 MMOL/L (98-107) Carbon Dioxide Level 34 MMOL/L (21-32) H Anion Gap 2 mmol/L (5-15) L Blood Urea Nitrogen 21 mg/dL (7-18) H Creatinine 1.0 MG/DL (0.55-1.30) Estimat Glomerular Filtration Rate > 60 mL/min (>60) Glucose Level 79 MG/DL (74-106) Calcium Level 8.7 MG/DL (8.5-10.1) Pro-B-Type Natriuretic Peptide 1893 pg/mL (0-125) H Microbiology Date/Time Source Procedure Growth Status 07/29/20 22:00 Rectum - Final NO CARBAPENEM-RESISTANT ENTEROBACTERI... Complete 07/29/20 22:00 Rectum VRE Culture - Final NO VANCOMYCIN RESISTANT ENTEROCOCCUS ... Complete 07/29/20 22:00 Nasal Nares MRSA Culture - Final NO METHICILLIN RESISTANT STAPH AUREUS... Complete Objective HEAD AND NECK: No JVD or carotid bruits. LUNGS: Clear. CARDIOVASCULAR: Regular S1 and S2 with no gallop. Defibrillator in left subclavian with multiple incision. ABDOMEN: Soft. EXTREMITIES: No pitting edema. Michael Guerrero MD Aug 01, 2020 11:28
--- NOTE | 2020-08-01 11:53 | Pulmonology Progress Note ---
Subjective ROS Limited/Unobtainable: No Interval Events: c./o dyspnea on activities Constitutional: Reports: no symptoms HEENT: Repors: no symptoms Allergies: Coded Allergies: NITROGLYCERIN (Verified Allergy, Unknown, 01/15/19) PENICILLINS (Verified Allergy, Unknown, 01/15/19) Objective Last 24 Hour Vital Signs Date Time Temp Pulse Resp B/P (MAP) Pulse Ox O2 Delivery O2 Flow Rate FiO2 08/01/20 09:00 Nasal Cannula 1.0 08/01/20 08:48 60 08/01/20 08:46 132/85 08/01/20 08:46 60 132/85 08/01/20 08:00 97.9 60 20 132/85 (101) 98 08/01/20 08:00 60 08/01/20 04:00 60 08/01/20 04:00 97.7 61 18 144/66 (92) 100 08/01/20 00:00 97.6 62 18 123/57 (79) 100 08/01/20 00:00 60 07/31/20 21:00 Nasal Cannula 1.0 07/31/20 21:00 60 132/58 07/31/20 20:00 60 07/31/20 20:00 97.9 60 20 132/58 (82) 99 07/31/20 18:14 97.7 07/31/20 17:44 61 20 134/70 (91) 98 07/31/20 16:05 97.7 61 20 96/81 (86) 98 07/31/20 16:00 60 07/31/20 12:00 98.1 63 18 114/60 (78) 97 07/31/20 12:00 60 Intake and Output 07/31/20 08/01/20 19:00 07:00 Intake Total 360 ml Output Total 700 ml Balance -340 ml Intake Oral 360 ml Output Urine Total 700 ml # Voids 2 General Appearance: WD/WN HEENT: normocephalic, atraumatic Respiratory: chest wall non-tender, lungs clear, no respiratory distress Cardiovascular: normal peripheral pulses Abdomen: normal bowel sounds, soft, non tender Extremities: no cyanosis Microbiology Date/Time Source Procedure Growth Status 07/29/20 22:00 Rectum - Final NO CARBAPENEM-RESISTANT ENTEROBACTERI... Complete 07/29/20 22:00 Rectum VRE Culture - Final NO VANCOMYCIN RESISTANT ENTEROCOCCUS ... Complete 07/29/20 22:00 Nasal Nares MRSA Culture - Final NO METHICILLIN RESISTANT STAPH AUREUS... Complete Laboratory Tests 08/01/20 06:21: White Blood Count 7.4, Red Blood Count 3.09L, Hemoglobin 10.2L, Hematocrit 29.7L , Mean Corpuscular Volume 96, Mean Corpuscular Hemoglobin 33.0H, Mean Corpuscular Hemoglobin Concent 34.2, Red Cell Distribution Width 14.1, Platelet Count 123L, Mean Platelet Volume 9.5, Neutrophils (%) (Auto) 61.9, Lymphocytes (%) (Auto) 23.6, Monocytes (%) (Auto) 8.7, Eosinophils (%) (Auto) 3.9H, Bas ophils (%) (Auto) 1.9, Prothrombin Time 17.5H, Prothromb Time International Ratio 1.6H, Sodium Level 141, Potassium Level 4.2, Chloride Level 105, Carbon Dioxide Level 34H, Anion Gap 2L, Blood Urea Nitrogen 21H, Creatinine 1.0, Estimat Glomerular Filtration Rate > 60, Glucose Level 79, Calcium Level 8.7, Pro-B-Type Natriuretic Peptide 1893H Current Medications Medications (Trade) Dose Ordered Sig/Nancy Route PRN Reason Start Time Stop Time Status Last Admin Dose Admin Acetaminophen (Tylenol) 650 mg Q4H PRN ORAL FEVER 07/29/20 19:00 08/28/20 18:59 Acetaminophen (Tylenol) 650 mg Q4H PRN ORAL Mild Pain (Pain Scale 1-3) 07/30/20 12:15 08/29/20 12:14 Albuterol/ Ipratropium (Albuterol/ Ipratropium) 3 ml Q4H PRN HHN Shortness of Breath 07/29/20 19:00 08/03/20 18:59 Ascorbic Acid (Vitamin C) 1,000 mg DAILY ORAL 07/30/20 09:00 08/29/20 08:59 08/01/20 08:46 Aspirin (ASA) 162 mg DAILY ORAL 07/30/20 09:00 09/13/20 08:59 08/01/20 08:47 Atorvastatin Calcium (Lipitor) 20 mg BEDTIME ORAL 07/30/20 21:00 10/28/20 20:59 07/31/20 21:06 Baclofen (Lioresal) 10 mg THREE TIMES A DAY ORAL 07/30/20 09:00 08/29/20 08:59 08/01/20 08:47 Carvedilol (Coreg) 25 mg EVERY 12 HOURS ORAL 07/30/20 00:00 08/29/20 00:00 08/01/20 08:46 Digoxin (Lanoxin) 0.125 mg DAILY ORAL 07/30/20 09:00 10/28/20 08:59 08/01/20 08:48 Diltiazem HCl (Cardizem) 10 mg Q1H PRN IV heart rate more than 120, 07/29/20 19:00 08/28/20 18:59 Diphenhydramine HCl (Benadryl) 25 mg Q6H PRN ORAL Itching 07/29/20 23:45 08/28/20 23:44 Docusate Sodium (Colace) 100 mg TWICE A DAY ORAL 07/30/20 09:00 08/29/20 08:59 08/01/20 08:47 Enalaprilat (Vasotec) 2.5 mg Q6H PRN IV sbp more than 160 07/29/20 19:00 08/28/20 18:59 Furosemide (Lasix) 40 mg EVERY 12 HOURS IV 07/30/20 00:00 08/29/20 00:00 08/01/20 08:46 Guaifenesin/ Dextromethorphan (Robitussin DM Syrup) 5 ml Q6H PRN ORAL For Cough 07/31/20 10:00 10/29/20 09:59 07/31/20 18:43 Hydromorphone HCl (Dilaudid) 1 mg Q3H PRN IVP Severe Pain (Pain Scale 7-10) 07/30/20 12:00 08/06/20 11:59 08/01/20 09:33 Lidocaine (Lidoderm 5% PATCH) 1 patch DAILY PRN TDERMAL For Pain 07/29/20 23:45 10/27/20 23:44 08/01/20 10:48 Lisinopril (ZestriL) 10 mg DAILY ORAL 07/30/20 09:00 08/29/20 08:59 08/01/20 08:46 Magnesium Oxide (Mag-Ox 400mg) 400 mg DAILYPRN PRN ORAL Constipation 07/30/20 08:30 08/29/20 08:29 Multivitamins (Multivitamins) 1 tab DAILY ORAL 07/30/20 09:00 08/29/20 08:59 08/01/20 08:47 Ondansetron HCl (Zofran) 4 mg Q6H PRN IVP Nausea & Vomiting 07/29/20 19:00 08/28/20 18:59 08/01/20 08:17 Oxycodone HCl (Roxicodone) 15 mg Q6H PRN ORAL Moderate Breakthru Pain (5-7) 07/29/20 23:31 08/05/20 23:30 Polyethylene Glycol (Miralax) 17 gm DAILYPRN PRN ORAL Constipation 07/29/20 19:00 08/28/20 18:59 Potassium Chloride (K-Dur) 20 meq TWICE A DAY ORAL 07/30/20 09:00 10/28/20 08:59 08/01/20 08:47 Sucralfate (Carafate) 1 gm BEFORE MEALS AND HS ORAL 07/30/20 00:00 10/28/20 00:00 08/01/20 10:48 Warfarin Sodium (Coumadin per pharmacy) 1 ea DAILY PRN MISC Per rx protocol 07/29/20 23:45 08/28/20 23:44 Warfarin Sodium (Coumadin) 7.5 mg COUMADIN ORAL 08/01/20 17:00 08/01/20 17:01 Zolpidem Tartrate (Ambien) 10 mg BEDTIME PRN ORAL Insomnia 07/30/20 22:15 08/05/20 23:44 07/31/20 21:08 Assessment/Plan Problems: (1) Chronic atrial fibrillation (2) Chronic anticoagulation (3) Macrocytic anemia (4) ACS (acute coronary syndrome) (5) Pacemaker Assessment/Plan all reviewed pain is better controlled telemetry monitoring echocardiogram titrate cardiac meds pharmacy to dose coumadin pain management pt is asking for Zarina Estrada MD Aug 01, 2020 11:53
[2020-08-01 12:00] VITALS: BP 144/89
--- NOTE | 2020-08-01 14:01 | Internal Med Progress Note ---
Subjective Date of Service: Aug 01, 2020 Physician Name Brice,Angelo Attending Physician Yuri Escalera MD Current Medications Medications (Trade) Dose Ordered Sig/Nancy Route PRN Reason Start Time Stop Time Status Last Admin Dose Admin Acetaminophen (Tylenol) 650 mg Q4H PRN ORAL FEVER 07/29/20 19:00 08/28/20 18:59 Acetaminophen (Tylenol) 650 mg Q4H PRN ORAL Mild Pain (Pain Scale 1-3) 07/30/20 12:15 08/29/20 12:14 Albuterol/ Ipratropium (Albuterol/ Ipratropium) 3 ml Q4H PRN HHN Shortness of Breath 07/29/20 19:00 08/03/20 18:59 Ascorbic Acid (Vitamin C) 1,000 mg DAILY ORAL 07/30/20 09:00 08/29/20 08:59 08/01/20 08:46 Aspirin (ASA) 162 mg DAILY ORAL 07/30/20 09:00 09/13/20 08:59 08/01/20 08:47 Atorvastatin Calcium (Lipitor) 20 mg BEDTIME ORAL 07/30/20 21:00 10/28/20 20:59 07/31/20 21:06 Baclofen (Lioresal) 10 mg THREE TIMES A DAY ORAL 07/30/20 09:00 08/29/20 08:59 08/01/20 12:46 Carvedilol (Coreg) 25 mg EVERY 12 HOURS ORAL 07/30/20 00:00 08/29/20 00:00 08/01/20 08:46 Digoxin (Lanoxin) 0.125 mg DAILY ORAL 07/30/20 09:00 10/28/20 08:59 08/01/20 08:48 Diltiazem HCl (Cardizem) 10 mg Q1H PRN IV heart rate more than 120, 07/29/20 19:00 08/28/20 18:59 Diphenhydramine HCl (Benadryl) 25 mg Q6H PRN ORAL Itching 07/29/20 23:45 08/28/20 23:44 Docusate Sodium (Colace) 100 mg TWICE A DAY ORAL 07/30/20 09:00 08/29/20 08:59 08/01/20 08:47 Enalaprilat (Vasotec) 2.5 mg Q6H PRN IV sbp more than 160 07/29/20 19:00 08/28/20 18:59 Furosemide (Lasix) 40 mg EVERY 12 HOURS IV 07/30/20 00:00 08/29/20 00:00 08/01/20 08:46 Guaifenesin/ Dextromethorphan (Robitussin DM Syrup) 5 ml Q6H PRN ORAL For Cough 07/31/20 10:00 10/29/20 09:59 07/31/20 18:43 Hydromorphone HCl (Dilaudid) 1 mg Q3H PRN IVP Severe Pain (Pain Scale 7-10) 07/30/20 12:00 08/06/20 11:59 08/01/20 12:46 Lidocaine (Lidoderm 5% PATCH) 1 patch DAILY PRN TDERMAL For Pain 07/29/20 23:45 10/27/20 23:44 08/01/20 10:48 Lisinopril (ZestriL) 10 mg DAILY ORAL 07/30/20 09:00 08/29/20 08:59 08/01/20 08:46 Magnesium Oxide (Mag-Ox 400mg) 400 mg DAILYPRN PRN ORAL Constipation 07/30/20 08:30 08/29/20 08:29 Multivitamins (Multivitamins) 1 tab DAILY ORAL 07/30/20 09:00 08/29/20 08:59 08/01/20 08:47 Ondansetron HCl (Zofran) 4 mg Q6H PRN IVP Nausea & Vomiting 07/29/20 19:00 08/28/20 18:59 08/01/20 08:17 Oxycodone HCl (Roxicodone) 15 mg Q6H PRN ORAL Moderate Breakthru Pain (5-7) 07/29/20 23:31 08/05/20 23:30 Polyethylene Glycol (Miralax) 17 gm DAILYPRN PRN ORAL Constipation 07/29/20 19:00 08/28/20 18:59 Potassium Chloride (K-Dur) 20 meq TWICE A DAY ORAL 07/30/20 09:00 10/28/20 08:59 08/01/20 08:47 Sucralfate (Carafate) 1 gm BEFORE MEALS AND HS ORAL 07/30/20 00:00 10/28/20 00:00 08/01/20 10:48 Warfarin Sodium (Coumadin per pharmacy) 1 ea DAILY PRN MISC Per rx protocol 07/29/20 23:45 08/28/20 23:44 Warfarin Sodium (Coumadin) 7.5 mg COUMADIN ORAL 08/01/20 17:00 08/01/20 17:01 Zolpidem Tartrate (Ambien) 10 mg BEDTIME PRN ORAL Insomnia 07/30/20 22:15 08/05/20 23:44 07/31/20 21:08 Allergies: Coded Allergies: NITROGLYCERIN (Verified Allergy, Unknown, 01/15/19) PENICILLINS (Verified Allergy, Unknown, 01/15/19) ROS Limited/Unobtainable: No Constitutional: Reports: no symptoms HEENT: Reports: no symptoms Cardiovascular: Reports: chest pain Respiratory: Reports: shortness of breath Gastrointestinal/Abdominal: Reports: no symptoms Genitourinary: Reports: no symptoms Neurologic/Psychiatric: Reports: no symptoms Subjective 65 YO F with history of CHF and AICD admitted with chest pain. Now CHF exacerbation. Cover for Int Med-DR Escalera Objective Last Vital Signs Date Time Temp Pulse Resp B/P (MAP) Pulse Ox O2 Delivery O2 Flow Rate FiO2 08/01/20 12:00 98.2 93 18 144/89 (107) 100 08/01/20 09:00 Nasal Cannula 1.0 Laboratory Tests Test 08/01/20 06:21 White Blood Count 7.4 K/UL (4.8-10.8) Red Blood Count 3.09 M/UL (4.20-5.40) L Hemoglobin 10.2 G/DL (12.0-16.0) L Hematocrit 29.7 % (37.0-47.0) L Mean Corpuscular Volume 96 FL (80-99) Mean Corpuscular Hemoglobin 33.0 PG (27.0-31.0) H Mean Corpuscular Hemoglobin Concent 34.2 G/DL (32.0-36.0) Red Cell Distribution Width 14.1 % (11.6-14.8) Platelet Count 123 K/UL (150-450) L Mean Platelet Volume 9.5 FL (6.5-10.1) Neutrophils (%) (Auto) 61.9 % (45.0-75.0) Lymphocytes (%) (Auto) 23.6 % (20.0-45.0) Monocytes (%) (Auto) 8.7 % (1.0-10.0) Eosinophils (%) (Auto) 3.9 % (0.0-3.0) H Basophils (%) (Auto) 1.9 % (0.0-2.0) Prothrombin Time 17.5 SEC (9.30-11.50) H Prothromb Time International Ratio 1.6 (0.9-1.1) H Sodium Level 141 MMOL/L (136-145) Potassium Level 4.2 MMOL/L (3.5-5.1) Chloride Level 105 MMOL/L (98-107) Carbon Dioxide Level 34 MMOL/L (21-32) H Anion Gap 2 mmol/L (5-15) L Blood Urea Nitrogen 21 mg/dL (7-18) H Creatinine 1.0 MG/DL (0.55-1.30) Estimat Glomerular Filtration Rate > 60 mL/min (>60) Glucose Level 79 MG/DL (74-106) Calcium Level 8.7 MG/DL (8.5-10.1) Pro-B-Type Natriuretic Peptide 1893 pg/mL (0-125) H Microbiology Date/Time Source Procedure Growth Status 07/29/20 22:00 Rectum - Final NO CARBAPENEM-RESISTANT ENTEROBACTERI... Complete 07/29/20 22:00 Rectum VRE Culture - Final NO VANCOMYCIN RESISTANT ENTEROCOCCUS ... Complete 07/29/20 22:00 Nasal Nares MRSA Culture - Final NO METHICILLIN RESISTANT STAPH AUREUS... Complete Intake and Output 07/31/20 08/01/20 19:00 07:00 Intake Total 360 ml Output Total 700 ml Balance -340 ml Intake Oral 360 ml Output Urine Total 700 ml # Voids 2 Objective PHYSICAL EXAMINATION: GENERAL: Patient is awake, responsive, in no acute distress. HEAD AND NECK: Pupils are equal and reactive to light. Extraocular movements are intact. Neck was supple. No JVD. LUNGS: Good air entry with no wheezing or rales. Decreased in bases. HEART: S1, S2. Irregular. Systolic ejection murmur left sternal border. No gallop. AICD in left-sided chest wall. ABDOMEN: Soft, nondistended, nontender. Positive bowel sounds. Mildly obese. Midline surgical scar was noted from prior surgery. Patient has a right-sided ventral hernia. EXTREMITIES: No cyanosis, clubbing. Trace edema bilateral lower extremities. NEUROLOGIC: Cranial nerves II through XII grossly intact. Motor is 5/5 in all extremities. RECTAL: Refused and deferred. GENITOURINARY: Refused and deferred. PSYCHIATRIC: Mood and affect is intact. Assessment/Plan Assessment/Plan ASSESSMENT: 1. Chest pain, possible acute coronary syndrome. 2. Acute on chronic congestive heart failure; diastolic dysfunction 3. Ventral hernia without obstruction or gangrene. 4. Chronic atrial fibrillation. 5. Dilated cardiomyopathy. 6. Morbid obesity. 7. Fibromyalgia. 8. Hypertension. 9. COPD emphysema. 10. Severe osteoarthritis of the knees. 11. AICD in situ PLAN: 1. Admit patient to monitored unit 2. Ruled out for acute VT by serial cardiac enzymes. 3. Dr. Calderon = Pulmonary Critical Care. 4. Start patient on Lasix IV. Resume home medication. 5. Code status is Full Code. 6. DVT prophylaxis, she is already on Coumadin. 7. Cardiology=Dr Guerrero 8. Echocardiogram LVEF=60% Angelo Brice MD Aug 01, 2020 14:01
[2020-08-01 16:00] VITALS: BP 131/60
[2020-08-01] MEDS ORDERED: Warfarin Sod 5 MG, Warfarin Sod 2.5 MG ORAL SCH ×2 (17:00)
[2020-08-01] MEDS: guaiFENesin /DM 10ml syrup ORAL PRN (17:42)
[2020-08-01 20:00] VITALS: BP 118/83
[2020-08-01] MEDS: Atorvastatin 20mg tab ORAL SCH (20:52)
[2020-08-02] VITALS: BP 142/76
[2020-08-02] MEDS: Magnesium Oxide 400mg tab ORAL PRN (02:23)
[2020-08-02] MEDS: Zolpidem 5mg tab ORAL PRN ×2 (02:26→22:07)
[2020-08-02 04:00] VITALS: BP 122/80
[2020-08-02 06:13] LABS: BASOPHILS % (AUTO) 1.4 % (0.0-2.0); EOSINOPHILS % (AUTO) 3.2 % (0.0-3.0); HEMATOCRIT 28.7 % (37.0-47.0); HEMOGLOBIN 9.9 G/DL (12.0-16.0); LYMPHOCYTES % (AUTO) 21.8 % (20.0-45.0); MEAN CORPUSCULAR VOLUME 95 FL (80-99); MONOCYTES % (AUTO) 7.9 % (1.0-10.0); NEUTROPHILS % (AUTO) 65.7 % (45.0-75.0); PLATELET COUNT 135 K/UL (150-450); RED BLOOD COUNT 3.04 M/UL (4.20-5.40); RED CELL DISTRIBUTION WIDTH 14.9 % (11.6-14.8); WHITE BLOOD COUNT 7.3 K/UL (4.8-10.8)
[2020-08-02 06:15] LABS: INR 1.8 (0.9-1.1)
[2020-08-02 06:40] LABS: ANION GAP 4 mmol/L (5-15); BLOOD UREA NITROGEN 16 mg/dL (7-18); CALCIUM 8.9 MG/DL (8.5-10.1); CARBON DIOXIDE 33 MMOL/L (21-32); CHLORIDE 105 MMOL/L (98-107); CREATININE 0.8 MG/DL (0.55-1.30); POTASSIUM 4.6 MMOL/L (3.5-5.1); SODIUM 142 MMOL/L (136-145)
[2020-08-02] MEDS: Sucralfate 1gm tab ORAL SCH ×4 (07:01→20:48)
[2020-08-02 08:00] VITALS: BP 125/57
[2020-08-02] MEDS: Aspirin Baby 81mg ORAL SCH (09:47)
[2020-08-02] MEDS: Carvedilol 25mg Tab ORAL SCH ×2 (09:48→20:49)
[2020-08-02] MEDS: Ascorbic Acid 500mg tab ORAL SCH (09:48)
[2020-08-02] MEDS: Docusate 100mg cap ORAL SCH ×2 (09:48→17:43)
[2020-08-02] MEDS: Lisinopril 10mg tab ORAL SCH (09:50)
[2020-08-02] MEDS: Digoxin 0.125mg tab ORAL SCH (09:50)
[2020-08-02] MEDS: HYDROmorphone 1mg/ml Carpuject IVP PRN ×2 (09:51→17:46)
--- NOTE | 2020-08-02 14:55 | Cardiac Electrophysiology PN ---
Assessment/Plan Assessment/Plan 1. Status post dual-chamber [place] defibrillator generator change in March 2020 at [facility]. Interrogated and showed Nl Fx 2. Chronic atrial fibrillation. On digoxin 0.125 mg daily, Coreg 25 mg b.i.d. and Coumadin. 3. Exacerbation of congestive heart failure. The patient has diastolic dysfunction. Ejection fraction is within normal range. On Lasix 40 mg IV b.i.d., Coreg 25 mg b.i.d., Dig, lisinopril 10 mg daily. 4. Left shoulder and neck pain 5. Left chest pain. Mostly shoulder pain. Ruled out for myocardial infarction Schedule for nuclear stress test 6. Fibromyalgia. 7. COPD. 8. Osteoarthritis of the knees. 9. Ventral hernia. Subjective Subjective V paced. ICD interrogated and showed Nl Fx. Has Right neck, chest and shoulder pain Objective Last 24 Hour Vital Signs Date Time Temp Pulse Resp B/P (MAP) Pulse Ox O2 Delivery O2 Flow Rate FiO2 08/02/20 10:21 98.1 08/02/20 09:50 61 08/02/20 09:50 125/57 08/02/20 09:48 61 125/57 08/02/20 04:00 60 08/02/20 04:00 98.1 60 17 122/80 (94) 99 08/02/20 00:00 97.9 62 18 142/76 (98) 99 08/02/20 00:00 60 08/01/20 21:03 63 118/83 08/01/20 21:00 Nasal Cannula 1.0 08/01/20 20:00 97.5 63 16 118/83 (95) 100 08/01/20 20:00 60 08/01/20 16:00 62 08/01/20 16:00 97.5 60 19 131/60 (83) 100 Intake and Output 08/01/20 08/02/20 19:00 07:00 Intake Total 240 ml 360 ml Output Total 0 ml Balance 240 ml 360 ml Intake Oral 240 ml 360 ml Output Urine Total 0 ml # Voids 2 3 Laboratory Tests Test 08/02/20 05:20 White Blood Count 7.3 K/UL (4.8-10.8) Red Blood Count 3.04 M/UL (4.20-5.40) L Hemoglobin 9.9 G/DL (12.0-16.0) L Hematocrit 28.7 % (37.0-47.0) L Mean Corpuscular Volume 95 FL (80-99) Mean Corpuscular Hemoglobin 32.8 PG (27.0-31.0) H Mean Corpuscular Hemoglobin Concent 34.6 G/DL (32.0-36.0) Red Cell Distribution Width 14.9 % (11.6-14.8) H Platelet Count 135 K/UL (150-450) L Mean Platelet Volume 9.8 FL (6.5-10.1) Neutrophils (%) (Auto) 65.7 % (45.0-75.0) Lymphocytes (%) (Auto) 21.8 % (20.0-45.0) Monocytes (%) (Auto) 7.9 % (1.0-10.0) Eosinophils (%) (Auto) 3.2 % (0.0-3.0) H Basophils (%) (Auto) 1.4 % (0.0-2.0) Prothrombin Time 18.5 SEC (9.30-11.50) H Prothromb Time International Ratio 1.8 (0.9-1.1) H Sodium Level 142 MMOL/L (136-145) Potassium Level 4.6 MMOL/L (3.5-5.1) Chloride Level 105 MMOL/L (98-107) Carbon Dioxide Level 33 MMOL/L (21-32) H Anion Gap 4 mmol/L (5-15) L Blood Urea Nitrogen 16 mg/dL (7-18) Creatinine 0.8 MG/DL (0.55-1.30) Estimat Glomerular Filtration Rate > 60 mL/min (>60) Glucose Level 91 MG/DL (74-106) Calcium Level 8.9 MG/DL (8.5-10.1) Pro-B-Type Natriuretic Peptide 1613 pg/mL (0-125) H Objective HEAD AND NECK: No JVD or carotid bruits. LUNGS: Clear. CARDIOVASCULAR: Regular S1 and S2 with no gallop. Defibrillator in left subclavian with multiple incision. ABDOMEN: Soft. EXTREMITIES: No pitting edema. Michael Guerrero MD Aug 02, 2020 14:55
[2020-08-02] MEDS ORDERED: Lexiscan 0.4mg/5ml syringe IV PRN (15:00)
--- NOTE | 2020-08-02 15:01 | Internal Med Progress Note ---
Subjective Date of Service: Aug 02, 2020 Physician Name BabsAngelo Attending Physician Yuri Escalera MD Current Medications Medications (Trade) Dose Ordered Sig/Nancy Route PRN Reason Start Time Stop Time Status Last Admin Dose Admin Acetaminophen (Tylenol) 650 mg Q4H PRN ORAL FEVER 07/29/20 19:00 08/28/20 18:59 Acetaminophen (Tylenol) 650 mg Q4H PRN ORAL Mild Pain (Pain Scale 1-3) 07/30/20 12:15 08/29/20 12:14 Albuterol/ Ipratropium (Albuterol/ Ipratropium) 3 ml Q4H PRN HHN Shortness of Breath 07/29/20 19:00 08/03/20 18:59 Ascorbic Acid (Vitamin C) 1,000 mg DAILY ORAL 07/30/20 09:00 08/29/20 08:59 08/02/20 09:48 Aspirin (ASA) 162 mg DAILY ORAL 07/30/20 09:00 09/13/20 08:59 08/02/20 09:47 Atorvastatin Calcium (Lipitor) 20 mg BEDTIME ORAL 07/30/20 21:00 10/28/20 20:59 08/01/20 20:52 Baclofen (Lioresal) 10 mg THREE TIMES A DAY ORAL 07/30/20 09:00 08/29/20 08:59 08/02/20 14:19 Carvedilol (Coreg) 25 mg EVERY 12 HOURS ORAL 07/30/20 00:00 08/29/20 00:00 08/02/20 09:48 Digoxin (Lanoxin) 0.125 mg DAILY ORAL 07/30/20 09:00 10/28/20 08:59 08/02/20 09:50 Diltiazem HCl (Cardizem) 10 mg Q1H PRN IV heart rate more than 120, 07/29/20 19:00 08/28/20 18:59 Diphenhydramine HCl (Benadryl) 25 mg Q6H PRN ORAL Itching 07/29/20 23:45 08/28/20 23:44 Docusate Sodium (Colace) 100 mg TWICE A DAY ORAL 07/30/20 09:00 08/29/20 08:59 08/02/20 09:48 Enalaprilat (Vasotec) 2.5 mg Q6H PRN IV sbp more than 160 07/29/20 19:00 08/28/20 18:59 Furosemide (Lasix) 40 mg EVERY 12 HOURS IV 07/30/20 00:00 08/29/20 00:00 08/02/20 09:50 Guaifenesin/ Dextromethorphan (Robitussin DM Syrup) 5 ml Q6H PRN ORAL For Cough 07/31/20 10:00 10/29/20 09:59 08/01/20 17:42 Hydromorphone HCl (Dilaudid) 1 mg Q3H PRN IVP Severe Pain (Pain Scale 7-10) 07/30/20 12:00 08/06/20 11:59 08/02/20 09:51 Lidocaine (Lidoderm 5% PATCH) 1 patch DAILY PRN TDERMAL For Pain 07/29/20 23:45 10/27/20 23:44 08/02/20 14:22 Lisinopril (ZestriL) 10 mg DAILY ORAL 07/30/20 09:00 08/29/20 08:59 08/02/20 09:50 Magnesium Oxide (Mag-Ox 400mg) 400 mg DAILYPRN PRN ORAL Constipation 07/30/20 08:30 08/29/20 08:29 08/02/20 02:23 Multivitamins (Multivitamins) 1 tab DAILY ORAL 07/30/20 09:00 08/29/20 08:59 08/02/20 09:48 Ondansetron HCl (Zofran) 4 mg Q6H PRN IVP Nausea & Vomiting 07/29/20 19:00 08/28/20 18:59 08/02/20 11:05 Oxycodone HCl (Roxicodone) 15 mg Q6H PRN ORAL Moderate Breakthru Pain (5-7) 07/29/20 23:31 08/05/20 23:30 Polyethylene Glycol (Miralax) 17 gm DAILYPRN PRN ORAL Constipation 07/29/20 19:00 08/28/20 18:59 Potassium Chloride (K-Dur) 20 meq TWICE A DAY ORAL 07/30/20 09:00 10/28/20 08:59 08/02/20 09:49 Regadenoson (Lexiscan) 0.4 mg ONCE ONCE IV 08/02/20 15:00 08/02/20 15:01 UNV Sucralfate (Carafate) 1 gm BEFORE MEALS AND HS ORAL 07/30/20 00:00 10/28/20 00:00 08/02/20 11:44 Warfarin Sodium (Coumadin per pharmacy) 1 ea DAILY PRN MISC Per rx protocol 07/29/20 23:45 08/28/20 23:44 Warfarin Sodium (Coumadin) 9 mg COUMADIN ORAL 08/02/20 17:00 08/02/20 19:00 Zolpidem Tartrate (Ambien) 10 mg BEDTIME PRN ORAL Insomnia 07/30/20 22:15 08/05/20 23:44 08/02/20 02:26 Allergies: Coded Allergies: NITROGLYCERIN (Verified Allergy, Unknown, 01/15/19) PENICILLINS (Verified Allergy, Unknown, 01/15/19) ROS Limited/Unobtainable: No Constitutional: Reports: no symptoms HEENT: Reports: no symptoms Cardiovascular: Reports: no symptoms Respiratory: Reports: no symptoms Gastrointestinal/Abdominal: Reports: no symptoms Genitourinary: Reports: no symptoms Neurologic/Psychiatric: Reports: no symptoms Subjective 65 YO F with history of CHF and AICD admitted with chest pain. Now CHF exacerbation. Cover for Int Pee-DR Escalera Objective Last Vital Signs Date Time Temp Pulse Resp B/P (MAP) Pulse Ox O2 Delivery O2 Flow Rate FiO2 08/02/20 10:21 98.1 08/02/20 09:50 61 08/02/20 09:50 125/57 08/02/20 04:00 17 99 08/01/20 21:00 Nasal Cannula 1.0 Laboratory Tests Test 08/02/20 05:20 White Blood Count 7.3 K/UL (4.8-10.8) Red Blood Count 3.04 M/UL (4.20-5.40) L Hemoglobin 9.9 G/DL (12.0-16.0) L Hematocrit 28.7 % (37.0-47.0) L Mean Corpuscular Volume 95 FL (80-99) Mean Corpuscular Hemoglobin 32.8 PG (27.0-31.0) H Mean Corpuscular Hemoglobin Concent 34.6 G/DL (32.0-36.0) Red Cell Distribution Width 14.9 % (11.6-14.8) H Platelet Count 135 K/UL (150-450) L Mean Platelet Volume 9.8 FL (6.5-10.1) Neutrophils (%) (Auto) 65.7 % (45.0-75.0) Lymphocytes (%) (Auto) 21.8 % (20.0-45.0) Monocytes (%) (Auto) 7.9 % (1.0-10.0) Eosinophils (%) (Auto) 3.2 % (0.0-3.0) H Basophils (%) (Auto) 1.4 % (0.0-2.0) Prothrombin Time 18.5 SEC (9.30-11.50) H Prothromb Time International Ratio 1.8 (0.9-1.1) H Sodium Level 142 MMOL/L (136-145) Potassium Level 4.6 MMOL/L (3.5-5.1) Chloride Level 105 MMOL/L (98-107) Carbon Dioxide Level 33 MMOL/L (21-32) H Anion Gap 4 mmol/L (5-15) L Blood Urea Nitrogen 16 mg/dL (7-18) Creatinine 0.8 MG/DL (0.55-1.30) Estimat Glomerular Filtration Rate > 60 mL/min (>60) Glucose Level 91 MG/DL (74-106) Calcium Level 8.9 MG/DL (8.5-10.1) Pro-B-Type Natriuretic Peptide 1613 pg/mL (0-125) H Intake and Output 08/01/20 08/02/20 19:00 07:00 Intake Total 240 ml 360 ml Output Total 0 ml Balance 240 ml 360 ml Intake Oral 240 ml 360 ml Output Urine Total 0 ml # Voids 2 3 Objective PHYSICAL EXAMINATION: GENERAL: Patient is awake, responsive, in no acute distress. HEAD AND NECK: Pupils are equal and reactive to light. Extraocular movements are intact. Neck was supple. No JVD. LUNGS: Good air entry with no wheezing or rales. Decreased in bases. HEART: S1, S2. Irregular. Systolic ejection murmur left sternal border. No gallop. AICD in left-sided chest wall. ABDOMEN: Soft, nondistended, nontender. Positive bowel sounds. Mildly obese. Midline surgical scar was noted from prior surgery. Patient has a right-sided ventral hernia. EXTREMITIES: No cyanosis, clubbing. Trace edema bilateral lower extremities. NEUROLOGIC: Cranial nerves II through XII grossly intact. Motor is 5/5 in all extremities. RECTAL: Refused and deferred. GENITOURINARY: Refused and deferred. PSYCHIATRIC: Mood and affect is intact. Assessment/Plan Assessment/Plan ASSESSMENT: 1. Chest pain, possible acute coronary syndrome. 2. Acute on chronic congestive heart failure; diastolic dysfunction 3. Ventral hernia without obstruction or gangrene. 4. Chronic atrial fibrillation. 5. Dilated cardiomyopathy. 6. Morbid obesity. 7. Fibromyalgia. 8. Hypertension. 9. COPD emphysema. 10. Severe osteoarthritis of the knees. 11. AICD in situ PLAN: 1. Admit patient to monitored unit 2. Ruled out for acute MT by serial cardiac enzymes. 3. Dr. Calderon = Pulmonary Critical Care. 4. Start patient on Lasix IV. Resume home medication. 5. Code status is Full Code. 6. DVT prophylaxis, she is already on Coumadin. 7. Cardiology=Dr Guerrero 8. Echocardiogram LVEF=60% Angelo Brice MD Aug 02, 2020 15:01
[2020-08-02 16:00] VITALS: BP 125/64
[2020-08-02] MEDS ORDERED: Warfarin Sod 5 MG, Warfarin Sod 4 MG ORAL SCH ×2 (17:00)
--- NOTE | 2020-08-02 18:37 | Pulmonology Progress Note ---
Subjective ROS Limited/Unobtainable: No Interval Events: c./o dyspnea on activities Constitutional: Reports: no symptoms HEENT: Repors: no symptoms Allergies: Coded Allergies: NITROGLYCERIN (Verified Allergy, Unknown, 01/15/19) PENICILLINS (Verified Allergy, Unknown, 01/15/19) Objective Last 24 Hour Vital Signs Date Time Temp Pulse Resp B/P (MAP) Pulse Ox O2 Delivery O2 Flow Rate FiO2 08/02/20 18:16 98.1 08/02/20 16:00 58 08/02/20 16:00 98.1 61 18 125/64 (84) 99 08/02/20 12:00 60 08/02/20 10:21 98.1 08/02/20 09:50 61 08/02/20 09:50 125/57 08/02/20 09:48 61 125/57 08/02/20 09:00 Nasal Cannula 1.0 08/02/20 08:00 98.2 61 18 125/57 (79) 98 08/02/20 08:00 60 08/02/20 04:00 60 08/02/20 04:00 98.1 60 17 122/80 (94) 99 08/02/20 00:00 97.9 62 18 142/76 (98) 99 08/02/20 00:00 60 08/01/20 21:03 63 118/83 08/01/20 21:00 Nasal Cannula 1.0 08/01/20 20:00 97.5 63 16 118/83 (95) 100 08/01/20 20:00 60 Intake and Output 08/01/20 08/02/20 19:00 07:00 Intake Total 240 ml 360 ml Output Total 0 ml Balance 240 ml 360 ml Intake Oral 240 ml 360 ml Output Urine Total 0 ml # Voids 2 3 General Appearance: WD/WN HEENT: normocephalic, atraumatic Respiratory: chest wall non-tender, lungs clear, no respiratory distress Cardiovascular: normal peripheral pulses Abdomen: normal bowel sounds, soft, non tender Extremities: no cyanosis Neurologic: bolt loader II-XII grossly normal Laboratory Tests 08/02/20 05:20: White Blood Count 7.3, Red Blood Count 3.04L, Hemoglobin 9.9L, Hematocrit 28.7L, Mean Corpuscular Volume 95, Mean Corpuscular Hemoglobin 32.8H, Mean Corpuscular Hemoglobin Concent 34.6, Red Cell Distribution Width 14.9H, Platelet Count 135L, Mean Platelet Volume 9.8, Neutrophils (%) (Auto) 65.7, Lymphocytes (%) (Auto) 21.8, Monocytes (%) (Auto) 7.9, Eosinophils (%) (Auto) 3.2H, Basophils (%) (Auto) 1.4, Prothrombin Time 18.5H, Prothromb Time International Ratio 1.8H, Sodium Level 142, Potassium Level 4.6, Chloride Level 105, Carbon Dioxide Level 33H, Anion Gap 4L, Blood Urea Nitrogen 16, Creatinine 0.8, Estimat Glomerular Filtration Rate > 60, Glucose Level 91, Calcium Level 8.9, Pro-B-Type Natriuretic Peptide 1613H Current Medications Medications (Trade) Dose Ordered Sig/Nancy Route PRN Reason Start Time Stop Time Status Last Admin Dose Admin Acetaminophen (Tylenol) 650 mg Q4H PRN ORAL FEVER 07/29/20 19:00 08/28/20 18:59 Acetaminophen (Tylenol) 650 mg Q4H PRN ORAL Mild Pain (Pain Scale 1-3) 07/30/20 12:15 08/29/20 12:14 Albuterol/ Ipratropium (Albuterol/ Ipratropium) 3 ml Q4H PRN HHN Shortness of Breath 07/29/20 19:00 08/03/20 18:59 Ascorbic Acid (Vitamin C) 1,000 mg DAILY ORAL 07/30/20 09:00 08/29/20 08:59 08/02/20 09:48 Aspirin (ASA) 162 mg DAILY ORAL 07/30/20 09:00 09/13/20 08:59 08/02/20 09:47 Atorvastatin Calcium (Lipitor) 20 mg BEDTIME ORAL 07/30/20 21:00 10/28/20 20:59 08/01/20 20:52 Baclofen (Lioresal) 10 mg THREE TIMES A DAY ORAL 07/30/20 09:00 08/29/20 08:59 08/02/20 17:49 Carvedilol (Coreg) 25 mg EVERY 12 HOURS ORAL 07/30/20 00:00 08/29/20 00:00 08/02/20 09:48 Digoxin (Lanoxin) 0.125 mg DAILY ORAL 07/30/20 09:00 10/28/20 08:59 08/02/20 09:50 Diltiazem HCl (Cardizem) 10 mg Q1H PRN IV heart rate more than 120, 07/29/20 19:00 08/28/20 18:59 Diphenhydramine HCl (Benadryl) 25 mg Q6H PRN ORAL Itching 07/29/20 23:45 08/28/20 23:44 Docusate Sodium (Colace) 100 mg TWICE A DAY ORAL 07/30/20 09:00 08/29/20 08:59 08/02/20 17:43 Enalaprilat (Vasotec) 2.5 mg Q6H PRN IV sbp more than 160 07/29/20 19:00 08/28/20 18:59 Furosemide (Lasix) 40 mg EVERY 12 HOURS IV 07/30/20 00:00 08/29/20 00:00 08/02/20 09:50 Guaifenesin/ Dextromethorphan (Robitussin DM Syrup) 5 ml Q6H PRN ORAL For Cough 07/31/20 10:00 10/29/20 09:59 08/01/20 17:42 Hydromorphone HCl (Dilaudid) 1 mg Q3H PRN IVP Severe Pain (Pain Scale 7-10) 07/30/20 12:00 08/06/20 11:59 08/02/20 17:46 Lidocaine (Lidoderm 5% PATCH) 1 patch DAILY PRN TDERMAL For Pain 07/29/20 23:45 10/27/20 23:44 08/02/20 14:22 Lisinopril (ZestriL) 10 mg DAILY ORAL 07/30/20 09:00 08/29/20 08:59 08/02/20 09:50 Magnesium Oxide (Mag-Ox 400mg) 400 mg DAILYPRN PRN ORAL Constipation 07/30/20 08:30 08/29/20 08:29 08/02/20 02:23 Multivitamins (Multivitamins) 1 tab DAILY ORAL 07/30/20 09:00 08/29/20 08:59 08/02/20 09:48 Ondansetron HCl (Zofran) 4 mg Q6H PRN IVP Nausea & Vomiting 07/29/20 19:00 08/28/20 18:59 08/02/20 11:05 Oxycodone HCl (Roxicodone) 15 mg Q6H PRN ORAL Moderate Breakthru Pain (5-7) 07/29/20 23:31 08/05/20 23:30 Polyethylene Glycol (Miralax) 17 gm DAILYPRN PRN ORAL Constipation 07/29/20 19:00 08/28/20 18:59 Potassium Chloride (K-Dur) 20 meq TWICE A DAY ORAL 07/30/20 09:00 10/28/20 08:59 08/02/20 17:44 Regadenoson (Lexiscan) 0.4 mg ONCE PRN IV CARDIOLOGY 08/02/20 15:00 08/05/20 14:59 Sucralfate (Carafate) 1 gm BEFORE MEALS AND HS ORAL 07/30/20 00:00 10/28/20 00:00 08/02/20 16:42 Warfarin Sodium (Coumadin per pharmacy) 1 ea DAILY PRN MISC Per rx protocol 07/29/20 23:45 08/28/20 23:44 Warfarin Sodium (Coumadin) 9 mg COUMADIN ORAL 08/02/20 17:00 08/02/20 19:00 08/02/20 17:45 Zolpidem Tartrate (Ambien) 10 mg BEDTIME PRN ORAL Insomnia 07/30/20 22:15 08/05/20 23:44 08/02/20 02:26 Assessment/Plan Problems: (1) Chronic atrial fibrillation (2) Chronic anticoagulation (3) Macrocytic anemia (4) ACS (acute coronary syndrome) (5) Pacemaker Assessment/Plan all reviewed pain is better controlled telemetry monitoring echocardiogram titrate cardiac meds pharmacy to dose coumadin pain management Zarina Calderon MD Aug 02, 2020 18:36
[2020-08-02 20:00] VITALS: BP 116/61
[2020-08-02] MEDS: Atorvastatin 20mg tab ORAL SCH (20:48)
[2020-08-03] VITALS: BP 123/64
[2020-08-03] MEDS: HYDROmorphone 1mg/ml Carpuject IVP PRN ×6 (01:53→22:38)
[2020-08-03 04:00] VITALS: BP 125/66
[2020-08-03] MEDS: guaiFENesin /DM 10ml syrup ORAL PRN ×2 (04:58→21:11)
[2020-08-03] MEDS: Sucralfate 1gm tab ORAL SCH ×4 (05:52→21:10)
[2020-08-03 08:00] VITALS: BP 123/64
[2020-08-03] MEDS: Carvedilol 25mg Tab ORAL SCH ×2 (08:43→21:00)
[2020-08-03] MEDS: Docusate 100mg cap ORAL SCH ×2 (08:43→17:10)
[2020-08-03] MEDS: Ascorbic Acid 500mg tab ORAL SCH (08:44)
[2020-08-03] MEDS: Lisinopril 10mg tab ORAL SCH (08:44)
[2020-08-03] MEDS: Magnesium Oxide 400mg tab ORAL PRN (08:44)
[2020-08-03] MEDS: Digoxin 0.125mg tab ORAL SCH (08:44)
[2020-08-03] MEDS: Aspirin Baby 81mg ORAL SCH (08:44)
[2020-08-03 09:14] LABS: BASOPHILS % (AUTO) 1.7 % (0.0-2.0); EOSINOPHILS % (AUTO) 3.1 % (0.0-3.0); HEMOGLOBIN 9.9 G/DL (12.0-16.0); LYMPHOCYTES % (AUTO) 14.7 % (20.0-45.0); MEAN CORPUSCULAR VOLUME 96 FL (80-99); MONOCYTES % (AUTO) 7.7 % (1.0-10.0); NEUTROPHILS % (AUTO) 72.8 % (45.0-75.0); PLATELET COUNT 119 K/UL (150-450); RED BLOOD COUNT 3.01 M/UL (4.20-5.40); RED CELL DISTRIBUTION WIDTH 14.4 % (11.6-14.8); WHITE BLOOD COUNT 7.6 K/UL (4.8-10.8)
[2020-08-03 09:21] LABS: INR 1.9 (0.9-1.1)
[2020-08-03 09:27] LABS: BLOOD UREA NITROGEN 20 mg/dL (7-18); CALCIUM 8.7 MG/DL (8.5-10.1); CREATININE 0.8 MG/DL (0.55-1.30)
[2020-08-03 09:42] LABS: ANION GAP 7 mmol/L (5-15); CARBON DIOXIDE 31 MMOL/L (21-32); CHLORIDE 104 MMOL/L (98-107); POTASSIUM 3.7 MMOL/L (3.5-5.1); SODIUM 142 MMOL/L (136-145)
[2020-08-03 12:00] VITALS: BP 126/60
--- NOTE | 2020-08-03 15:34 | Cardiac Electrophysiology PN ---
Assessment/Plan Assessment/Plan 1. Status post dual-chamber [place] defibrillator generator change in March 2020 at [facility]. Interrogated and showed Nl Fx 2. Chronic atrial fibrillation. On digoxin 0.125 mg daily, Coreg 25 mg b.i.d. and Coumadin. 3. Exacerbation of congestive heart failure. The patient has diastolic dysfunction. Ejection fraction is within normal range. On Lasix 40 mg IV b.i.d., Coreg 25 mg b.i.d., Dig, lisinopril 10 mg daily. 4. Left shoulder and neck pain 5. Left chest pain. Mostly shoulder pain. Ruled out for myocardial infarction Schedule for nuclear stress test tomorrow 6. Fibromyalgia. 7. COPD. 8. Osteoarthritis of the knees. 9. Ventral hernia. Subjective Subjective V paced. ICD interrogated and showed Nl Fx. Has Left neck, chest and shoulder pain. RN at bedside. awaiting stress test tomorrow Objective Last 24 Hour Vital Signs Date Time Temp Pulse Resp B/P (MAP) Pulse Ox O2 Delivery O2 Flow Rate FiO2 08/03/20 13:25 99.3 08/03/20 12:00 97.7 18 126/60 (82) 100 08/03/20 12:00 60 08/03/20 09:16 99.3 08/03/20 09:00 Nasal Cannula 2.0 08/03/20 08:44 62 08/03/20 08:44 123/64 08/03/20 08:43 62 123/64 08/03/20 08:00 60 08/03/20 08:00 99.3 60 18 123/64 (83) 100 08/03/20 04:00 60 08/03/20 04:00 98.6 60 20 125/66 (85) 99 08/03/20 00:00 98.2 65 20 123/64 (83) 95 08/03/20 00:00 60 08/02/20 21:00 Nasal Cannula 2.0 08/02/20 20:49 62 116/61 08/02/20 20:00 98.0 62 20 116/61 (79) 97 08/02/20 20:00 64 08/02/20 18:16 98.1 08/02/20 16:00 58 08/02/20 16:00 98.1 61 18 125/64 (84) 99 Intake and Output 08/02/20 08/03/20 19:00 07:00 Intake Total 1080 ml 250 ml Balance 1080 ml 250 ml Intake Oral 1080 ml 250 ml # Voids 3 3 Laboratory Tests Test 08/03/20 08:30 White Blood Count 7.6 K/UL (4.8-10.8) Red Blood Count 3.01 M/UL (4.20-5.40) L Hemoglobin 9.9 G/DL (12.0-16.0) L Hematocrit 29.0 % (37.0-47.0) L Mean Corpuscular Volume 96 FL (80-99) Mean Corpuscular Hemoglobin 33.0 PG (27.0-31.0) H Mean Corpuscular Hemoglobin Concent 34.3 G/DL (32.0-36.0) Red Cell Distribution Width 14.4 % (11.6-14.8) Platelet Count 119 K/UL (150-450) L Mean Platelet Volume 9.1 FL (6.5-10.1) Neutrophils (%) (Auto) 72.8 % (45.0-75.0) Lymphocytes (%) (Auto) 14.7 % (20.0-45.0) L Monocytes (%) (Auto) 7.7 % (1.0-10.0) Eosinophils (%) (Auto) 3.1 % (0.0-3.0) H Basophils (%) (Auto) 1.7 % (0.0-2.0) Prothrombin Time 20.2 SEC (9.30-11.50) H Prothromb Time International Ratio 1.9 (0.9-1.1) H Sodium Level 142 MMOL/L (136-145) Potassium Level 3.7 MMOL/L (3.5-5.1) Chloride Level 104 MMOL/L (98-107) Carbon Dioxide Level 31 MMOL/L (21-32) Anion Gap 7 mmol/L (5-15) Blood Urea Nitrogen 20 mg/dL (7-18) H Creatinine 0.8 MG/DL (0.55-1.30) Estimat Glomerular Filtration Rate > 60 mL/min (>60) Glucose Level 126 MG/DL (74-106) H Calcium Level 8.7 MG/DL (8.5-10.1) Objective HEAD AND NECK: No JVD LUNGS: Clear. CARDIOVASCULAR: Regular S1 and S2 with no gallop. Defibrillator in left subclavian with multiple incision. ABDOMEN: Soft. EXTREMITIES: No pitting edema. Michael Guerrero MD Aug 03, 2020 15:34
[2020-08-03 16:00] VITALS: BP 119/75
--- NOTE | 2020-08-03 16:07 | Internal Med Progress Note ---
Subjective Date of Service: Aug 03, 2020 Physician Name BabsAngelo Attending Physician Yuri Escalera MD Current Medications Medications (Trade) Dose Ordered Sig/Nancy Route PRN Reason Start Time Stop Time Status Last Admin Dose Admin Acetaminophen (Tylenol) 650 mg Q4H PRN ORAL FEVER 07/29/20 19:00 08/28/20 18:59 Acetaminophen (Tylenol) 650 mg Q4H PRN ORAL Mild Pain (Pain Scale 1-3) 07/30/20 12:15 08/29/20 12:14 Albuterol/ Ipratropium (Albuterol/ Ipratropium) 3 ml Q4H PRN HHN Shortness of Breath 07/29/20 19:00 08/03/20 18:59 Ascorbic Acid (Vitamin C) 1,000 mg DAILY ORAL 07/30/20 09:00 08/29/20 08:59 08/03/20 08:44 Aspirin (ASA) 162 mg DAILY ORAL 07/30/20 09:00 09/13/20 08:59 08/03/20 08:44 Atorvastatin Calcium (Lipitor) 20 mg BEDTIME ORAL 07/30/20 21:00 10/28/20 20:59 08/02/20 20:48 Baclofen (Lioresal) 10 mg THREE TIMES A DAY ORAL 07/30/20 09:00 08/29/20 08:59 08/03/20 12:54 Carvedilol (Coreg) 25 mg EVERY 12 HOURS ORAL 07/30/20 00:00 08/29/20 00:00 08/03/20 08:43 Digoxin (Lanoxin) 0.125 mg DAILY ORAL 07/30/20 09:00 10/28/20 08:59 08/03/20 08:44 Diltiazem HCl (Cardizem) 10 mg Q1H PRN IV heart rate more than 120, 07/29/20 19:00 08/28/20 18:59 Diphenhydramine HCl (Benadryl) 25 mg Q6H PRN ORAL Itching 07/29/20 23:45 08/28/20 23:44 Docusate Sodium (Colace) 100 mg TWICE A DAY ORAL 07/30/20 09:00 08/29/20 08:59 08/03/20 08:43 Enalaprilat (Vasotec) 2.5 mg Q6H PRN IV sbp more than 160 07/29/20 19:00 08/28/20 18:59 Furosemide (Lasix) 40 mg EVERY 12 HOURS IV 07/30/20 00:00 08/29/20 00:00 08/03/20 08:45 Guaifenesin/ Dextromethorphan (Robitussin DM Syrup) 5 ml Q6H PRN ORAL For Cough 07/31/20 10:00 10/29/20 09:59 08/03/20 04:58 Hydromorphone HCl (Dilaudid) 1 mg Q3H PRN IVP Severe Pain (Pain Scale 7-10) 07/30/20 12:00 08/06/20 11:59 08/03/20 12:55 Lidocaine (Lidoderm 5% PATCH) 1 patch DAILY PRN TDERMAL For Pain 07/29/20 23:45 10/27/20 23:44 08/03/20 15:53 Lisinopril (ZestriL) 10 mg DAILY ORAL 07/30/20 09:00 08/29/20 08:59 08/03/20 08:44 Magnesium Oxide (Mag-Ox 400mg) 400 mg DAILYPRN PRN ORAL Constipation 07/30/20 08:30 08/29/20 08:29 08/03/20 08:44 Multivitamins (Multivitamins) 1 tab DAILY ORAL 07/30/20 09:00 08/29/20 08:59 08/03/20 08:44 Ondansetron HCl (Zofran) 4 mg Q6H PRN IVP Nausea & Vomiting 07/29/20 19:00 08/28/20 18:59 08/03/20 05:52 Oxycodone HCl (Roxicodone) 15 mg Q6H PRN ORAL Moderate Breakthru Pain (5-7) 07/29/20 23:31 08/05/20 23:30 Polyethylene Glycol (Miralax) 17 gm DAILYPRN PRN ORAL Constipation 07/29/20 19:00 08/28/20 18:59 08/03/20 13:43 Potassium Chloride (K-Dur) 20 meq TWICE A DAY ORAL 07/30/20 09:00 10/28/20 08:59 08/03/20 08:43 Regadenoson (Lexiscan) 0.4 mg ONCE PRN IV CARDIOLOGY 08/02/20 15:00 08/05/20 14:59 Sucralfate (Carafate) 1 gm BEFORE MEALS AND HS ORAL 07/30/20 00:00 10/28/20 00:00 08/03/20 15:53 Warfarin Sodium (Coumadin per pharmacy) 1 ea DAILY PRN MISC Per rx protocol 07/29/20 23:45 08/28/20 23:44 Warfarin Sodium (Coumadin) 2.5 mg COUMADIN ORAL 08/03/20 17:00 08/03/20 18:00 Warfarin Sodium (Coumadin) 10 mg COUMADIN ORAL 08/03/20 17:00 08/03/20 18:00 Zolpidem Tartrate (Ambien) 10 mg BEDTIME PRN ORAL Insomnia 07/30/20 22:15 08/05/20 23:44 08/02/20 22:07 Allergies: Coded Allergies: NITROGLYCERIN (Verified Allergy, Unknown, 01/15/19) PENICILLINS (Verified Allergy, Unknown, 01/15/19) ROS Limited/Unobtainable: No Constitutional: Reports: no symptoms HEENT: Reports: no symptoms Cardiovascular: Reports: no symptoms Respiratory: Reports: no symptoms Gastrointestinal/Abdominal: Reports: no symptoms Genitourinary: Reports: no symptoms Neurologic/Psychiatric: Reports: no symptoms Subjective 65 YO F with history of CHF and AICD admitted with chest pain. Now CHF exacerbation. Cover for Int Pee-DR Escalera Objective Last Vital Signs Date Time Temp Pulse Resp B/P (MAP) Pulse Ox O2 Delivery O2 Flow Rate FiO2 08/03/20 13:25 99.3 08/03/20 12:00 18 126/60 (82) 100 08/03/20 12:00 60 08/03/20 09:00 Nasal Cannula 2.0 Laboratory Tests Test 08/03/20 08:30 White Blood Count 7.6 K/UL (4.8-10.8) Red Blood Count 3.01 M/UL (4.20-5.40) L Hemoglobin 9.9 G/DL (12.0-16.0) L Hematocrit 29.0 % (37.0-47.0) L Mean Corpuscular Volume 96 FL (80-99) Mean Corpuscular Hemoglobin 33.0 PG (27.0-31.0) H Mean Corpuscular Hemoglobin Concent 34.3 G/DL (32.0-36.0) Red Cell Distribution Width 14.4 % (11.6-14.8) Platelet Count 119 K/UL (150-450) L Mean Platelet Volume 9.1 FL (6.5-10.1) Neutrophils (%) (Auto) 72.8 % (45.0-75.0) Lymphocytes (%) (Auto) 14.7 % (20.0-45.0) L Monocytes (%) (Auto) 7.7 % (1.0-10.0) Eosinophils (%) (Auto) 3.1 % (0.0-3.0) H Basophils (%) (Auto) 1.7 % (0.0-2.0) Prothrombin Time 20.2 SEC (9.30-11.50) H Prothromb Time International Ratio 1.9 (0.9-1.1) H Sodium Level 142 MMOL/L (136-145) Potassium Level 3.7 MMOL/L (3.5-5.1) Chloride Level 104 MMOL/L (98-107) Carbon Dioxide Level 31 MMOL/L (21-32) Anion Gap 7 mmol/L (5-15) Blood Urea Nitrogen 20 mg/dL (7-18) H Creatinine 0.8 MG/DL (0.55-1.30) Estimat Glomerular Filtration Rate > 60 mL/min (>60) Glucose Level 126 MG/DL (74-106) H Calcium Level 8.7 MG/DL (8.5-10.1) Intake and Output 08/02/20 08/03/20 19:00 07:00 Intake Total 1080 ml 250 ml Balance 1080 ml 250 ml Intake Oral 1080 ml 250 ml # Voids 3 3 Objective PHYSICAL EXAMINATION: GENERAL: Patient is awake, responsive, in no acute distress. HEAD AND NECK: Pupils are equal and reactive to light. Extraocular movements are intact. Neck was supple. No JVD. LUNGS: Good air entry with no wheezing or rales. Decreased in bases. HEART: S1, S2. Irregular. Systolic ejection murmur left sternal border. No gallop. AICD in left-sided chest wall. ABDOMEN: Soft, nondistended, nontender. Positive bowel sounds. Mildly obese. Midline surgical scar was noted from prior surgery. Patient has a right-sided ventral hernia. EXTREMITIES: No cyanosis, clubbing. Trace edema bilateral lower extremities. NEUROLOGIC: Cranial nerves II through XII grossly intact. Motor is 5/5 in all extremities. RECTAL: Refused and deferred. GENITOURINARY: Refused and deferred. PSYCHIATRIC: Mood and affect is intact. Assessment/Plan Assessment/Plan ASSESSMENT: 1. Chest pain, possible acute coronary syndrome. 2. Acute on chronic congestive heart failure; diastolic dysfunction 3. Ventral hernia without obstruction or gangrene. 4. Chronic atrial fibrillation. 5. Dilated cardiomyopathy. 6. Morbid obesity. 7. Fibromyalgia. 8. Hypertension. 9. COPD emphysema. 10. Severe osteoarthritis of the knees. 11. AICD in situ PLAN: 1. Admit patient to monitored unit 2. Ruled out for acute HI by serial cardiac enzymes. 3. Dr. Calderon = Pulmonary Critical Care. 4. Start patient on Lasix IV. Resume home medication. 5. Code status is Full Code. 6. DVT prophylaxis, she is already on Coumadin. 7. Cardiology=Dr Guerrero 8. Echocardiogram LVEF=60% 9. Nuclear stress test scheduled Tue08/04/20 Angelo Brice MD Aug 03, 2020 16:07
--- NOTE | 2020-08-03 16:55 | Pulmonology Progress Note ---
Subjective ROS Limited/Unobtainable: No Interval Events: c./o dyspnea on activities Constitutional: Reports: no symptoms HEENT: Repors: no symptoms Allergies: Coded Allergies: NITROGLYCERIN (Verified Allergy, Unknown, 01/15/19) PENICILLINS (Verified Allergy, Unknown, 01/15/19) Objective Last 24 Hour Vital Signs Date Time Temp Pulse Resp B/P (MAP) Pulse Ox O2 Delivery O2 Flow Rate FiO2 08/03/20 16:00 97.5 64 20 119/75 (90) 99 08/03/20 13:25 99.3 08/03/20 12:00 97.7 18 126/60 (82) 100 08/03/20 12:00 60 08/03/20 09:16 99.3 08/03/20 09:00 Nasal Cannula 2.0 08/03/20 08:44 62 08/03/20 08:44 123/64 08/03/20 08:43 62 123/64 08/03/20 08:00 60 08/03/20 08:00 99.3 60 18 123/64 (83) 100 08/03/20 04:00 60 08/03/20 04:00 98.6 60 20 125/66 (85) 99 08/03/20 00:00 98.2 65 20 123/64 (83) 95 08/03/20 00:00 60 08/02/20 21:00 Nasal Cannula 2.0 08/02/20 20:49 62 116/61 08/02/20 20:00 98.0 62 20 116/61 (79) 97 08/02/20 20:00 64 08/02/20 18:16 98.1 Intake and Output 08/02/20 08/03/20 19:00 07:00 Intake Total 1080 ml 250 ml Balance 1080 ml 250 ml Intake Oral 1080 ml 250 ml # Voids 3 3 General Appearance: WD/WN HEENT: normocephalic, atraumatic Respiratory: chest wall non-tender, lungs clear, no respiratory distress Cardiovascular: normal peripheral pulses Abdomen: normal bowel sounds, soft, non tender Extremities: no cyanosis 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 Laboratory Tests 08/03/20 08:30: White Blood Count 7.6, Red Blood Count 3.01L, Hemoglobin 9.9L, Hematocrit 29.0L, Mean Corpuscular Volume 96, Mean Corpuscular Hemoglobin 33.0H, Mean Corpuscular Hemoglobin Concent 34.3, Red Cell Distribution Width 14.4, Platelet Count 119L, Mean Platelet Volume 9.1, Neutrophils (%) (Auto) 72.8, Lymphocytes (%) (Auto) 14.7L, Monocytes (%) (Auto) 7.7, Eosinophils (%) (Auto) 3.1H, Basophils (%) (Auto) 1.7, Prothrombin Time 20.2H, Prothromb Time International Ratio 1.9H, Sodium Level 142, Potassium Level 3.7, Chloride Level 104, Carbon Dioxide Level 31, Anion Gap 7, Blood Urea Nitrogen 20H, Creatinine 0.8, Estimat Glomerular Filtration Rate > 60, Glucose Level 126H, Calcium Level 8.7 Current Medications Medications (Trade) Dose Ordered Sig/Nancy Route PRN Reason Start Time Stop Time Status Last Admin Dose Admin Acetaminophen (Tylenol) 650 mg Q4H PRN ORAL FEVER 07/29/20 19:00 08/28/20 18:59 Acetaminophen (Tylenol) 650 mg Q4H PRN ORAL Mild Pain (Pain Scale 1-3) 07/30/20 12:15 08/29/20 12:14 Albuterol/ Ipratropium (Albuterol/ Ipratropium) 3 ml Q4H PRN HHN Shortness of Breath 07/29/20 19:00 08/03/20 18:59 Ascorbic Acid (Vitamin C) 1,000 mg DAILY ORAL 07/30/20 09:00 08/29/20 08:59 08/03/20 08:44 Aspirin (ASA) 162 mg DAILY ORAL 07/30/20 09:00 09/13/20 08:59 08/03/20 08:44 Atorvastatin Calcium (Lipitor) 20 mg BEDTIME ORAL 07/30/20 21:00 10/28/20 20:59 08/02/20 20:48 Baclofen (Lioresal) 10 mg THREE TIMES A DAY ORAL 07/30/20 09:00 08/29/20 08:59 08/03/20 12:54 Carvedilol (Coreg) 25 mg EVERY 12 HOURS ORAL 07/30/20 00:00 08/29/20 00:00 08/03/20 08:43 Digoxin (Lanoxin) 0.125 mg DAILY ORAL 07/30/20 09:00 10/28/20 08:59 08/03/20 08:44 Diltiazem HCl (Cardizem) 10 mg Q1H PRN IV heart rate more than 120, 07/29/20 19:00 08/28/20 18:59 Diphenhydramine HCl (Benadryl) 25 mg Q6H PRN ORAL Itching 07/29/20 23:45 08/28/20 23:44 Docusate Sodium (Colace) 100 mg TWICE A DAY ORAL 07/30/20 09:00 08/29/20 08:59 08/03/20 08:43 Enalaprilat (Vasotec) 2.5 mg Q6H PRN IV sbp more than 160 07/29/20 19:00 08/28/20 18:59 Furosemide (Lasix) 40 mg EVERY 12 HOURS IV 07/30/20 00:00 08/29/20 00:00 08/03/20 08:45 Guaifenesin/ Dextromethorphan (Robitussin DM Syrup) 5 ml Q6H PRN ORAL For Cough 07/31/20 10:00 10/29/20 09:59 08/03/20 04:58 Hydromorphone HCl (Dilaudid) 1 mg Q3H PRN IVP Severe Pain (Pain Scale 7-10) 07/30/20 12:00 08/06/20 11:59 08/03/20 12:55 Lidocaine (Lidoderm 5% PATCH) 1 patch DAILY PRN TDERMAL For Pain 07/29/20 23:45 10/27/20 23:44 08/03/20 15:53 Lisinopril (ZestriL) 10 mg DAILY ORAL 07/30/20 09:00 08/29/20 08:59 08/03/20 08:44 Magnesium Oxide (Mag-Ox 400mg) 400 mg DAILYPRN PRN ORAL Constipation 07/30/20 08:30 08/29/20 08:29 08/03/20 08:44 Multivitamins (Multivitamins) 1 tab DAILY ORAL 07/30/20 09:00 08/29/20 08:59 08/03/20 08:44 Ondansetron HCl (Zofran) 4 mg Q6H PRN IVP Nausea & Vomiting 07/29/20 19:00 08/28/20 18:59 08/03/20 05:52 Oxycodone HCl (Roxicodone) 15 mg Q6H PRN ORAL Moderate Breakthru Pain (5-7) 07/29/20 23:31 08/05/20 23:30 Polyethylene Glycol (Miralax) 17 gm DAILYPRN PRN ORAL Constipation 07/29/20 19:00 08/28/20 18:59 08/03/20 13:43 Potassium Chloride (K-Dur) 20 meq TWICE A DAY ORAL 07/30/20 09:00 10/28/20 08:59 08/03/20 08:43 Regadenoson (Lexiscan) 0.4 mg ONCE PRN IV CARDIOLOGY 08/02/20 15:00 08/05/20 14:59 Sucralfate (Carafate) 1 gm BEFORE MEALS AND HS ORAL 07/30/20 00:00 10/28/20 00:00 08/03/20 15:53 Warfarin Sodium (Coumadin per pharmacy) 1 ea DAILY PRN MISC Per rx protocol 07/29/20 23:45 08/28/20 23:44 Warfarin Sodium (Coumadin) 2.5 mg COUMADIN ORAL 08/03/20 17:00 08/03/20 18:00 Warfarin Sodium (Coumadin) 10 mg COUMADIN ORAL 08/03/20 17:00 08/03/20 18:00 Zolpidem Tartrate (Ambien) 10 mg BEDTIME PRN ORAL Insomnia 07/30/20 22:15 08/05/20 23:44 08/02/20 22:07 Assessment/Plan Problems: (1) Chronic atrial fibrillation (2) Chronic anticoagulation (3) Macrocytic anemia (4) ACS (acute coronary syndrome) (5) Pacemaker Assessment/Plan all reviewed pain is better controlled telemetry monitoring echocardiogram titrate cardiac meds pharmacy to dose coumadin pain management Zarina Calderon MD Aug 03, 2020 16:55
[2020-08-03] MEDS ORDERED: Warfarin Sodium 2.5mg ORAL SCH (17:00)
[2020-08-03] MEDS ORDERED: Warfarin Sodium 5mg ORAL SCH (17:00)
[2020-08-03 20:00] VITALS: BP 114/61
[2020-08-03] MEDS: Atorvastatin 20mg tab ORAL SCH (21:11)
[2020-08-03] MEDS: Zolpidem 5mg tab ORAL PRN (23:04)
[2020-08-04] VITALS: BP 122/70
[2020-08-04] MEDS: HYDROmorphone 1mg/ml Carpuject IVP PRN ×5 (02:34→21:20)
[2020-08-04 04:00] VITALS: BP 138/76
[2020-08-04] MEDS: Sucralfate 1gm tab ORAL SCH ×4 (06:11→20:22)
[2020-08-04 08:00] VITALS: BP 123/75
[2020-08-04] MEDS: Docusate 100mg cap ORAL SCH ×2 (08:25→17:35)
[2020-08-04] MEDS: Aspirin Baby 81mg ORAL SCH (08:26)
[2020-08-04] MEDS: Ascorbic Acid 500mg tab ORAL SCH (08:27)
[2020-08-04] MEDS: Lisinopril 10mg tab ORAL SCH (08:27)
[2020-08-04 08:46] LABS: BASOPHILS % (AUTO) 1.1 % (0.0-2.0); EOSINOPHILS % (AUTO) 4.5 % (0.0-3.0); HEMATOCRIT 30.4 % (37.0-47.0); HEMOGLOBIN 10.3 G/DL (12.0-16.0); LYMPHOCYTES % (AUTO) 20.5 % (20.0-45.0); MEAN CORPUSCULAR VOLUME 96 FL (80-99); MONOCYTES % (AUTO) 10.2 % (1.0-10.0); NEUTROPHILS % (AUTO) 63.7 % (45.0-75.0); PLATELET COUNT 137 K/UL (150-450); RED BLOOD COUNT 3.16 M/UL (4.20-5.40); RED CELL DISTRIBUTION WIDTH 14.7 % (11.6-14.8); WHITE BLOOD COUNT 8.4 K/UL (4.8-10.8)
[2020-08-04] MEDS: Carvedilol 25mg Tab ORAL SCH ×3 (09:00→20:22)
[2020-08-04] MEDS: Digoxin 0.125mg tab ORAL SCH ×2 (09:00→11:18)
[2020-08-04 09:06] LABS: INR 2.1 (0.9-1.1)
[2020-08-04 09:10] LABS: ANION GAP 5 mmol/L (5-15); BLOOD UREA NITROGEN 22 mg/dL (7-18); CARBON DIOXIDE 32 MMOL/L (21-32); CHLORIDE 103 MMOL/L (98-107); CREATININE 0.8 MG/DL (0.55-1.30); SODIUM 140 MMOL/L (136-145)
[2020-08-04 12:00] VITALS: BP 130/73
--- NOTE | 2020-08-04 14:03 | Diagnostic Imaging Report ---
Indications: Chest pain Technique: Single day single isotope protocol utilized. Initially, resting images obtained using IV administration 9.9 millicuries 99M technetium Myoview. Subsequently, patient underwent lexiscan stress testing. See cardiology report for details. During Lexiscan infusion, IV administration 28.9 mCi 99 M technetium Myoview. SPECT and planar images obtained. SPECT images gated to 8 phases of the cardiac cycle were also obtained, and reformatted into cine images for evaluation of ejection fraction. Comparison: none Findings: Per cardiology report, patient experienced no symptoms. Per cardiology report, resting EKG demonstrates atrial fibrillation with ventricular paced rhythm. T-wave inversion suggestive of inferolateral and anterior ischemia during infusion is described on the cardiology report. Imaging demonstrates normal poststress perfusion, no definite fixed nor reversible perfusion defects. There is equivocal slight dilatation of the left ventricle.. Calculated post stress ejection fraction 61%. No focal wall motion abnormality Impression: Nonischemic clinical response to pharmacologic stress, per cardiology report Nonischemic electrocardiographic response to pharmacologic stress, per cardiology report No imaging findings to suggest ischemia, at level of stress achieved. Calculated post stress ejection fraction 61%
--- NOTE | 2020-08-04 14:21 | Cardiac Electrophysiology PN ---
Assessment/Plan Assessment/Plan 1. Status post dual-chamber [facility] [employer] defibrillator generator change in March 2020 at [facility]. Interrogated and showed Nl Fx 2. Chronic atrial fibrillation. On digoxin 0.125 mg daily, Coreg 25 mg b.i.d. and Coumadin. 3. Exacerbation of congestive heart failure. The patient has diastolic dysfunction. Ejection fraction is within normal range. On Lasix 40 mg IV b.i.d., Coreg 25 mg b.i.d., Dig, lisinopril 10 mg daily. 4. Left shoulder and neck pain 5. Left chest pain. Mostly shoulder pain. Ruled out for myocardial infarction Schedule for nuclear stress test today 6. Fibromyalgia. 7. COPD. 8. Osteoarthritis of the knees. 9. Ventral hernia. Subjective Subjective V paced. ICD interrogated and showed Nl Fx. Awaiting stress test today Objective Last 24 Hour Vital Signs Date Time Temp Pulse Resp B/P (MAP) Pulse Ox O2 Delivery O2 Flow Rate FiO2 08/04/20 12:00 98.2 59 18 130/73 (92) 98 08/04/20 12:00 68 08/04/20 11:18 62 08/04/20 11:18 62 123/75 08/04/20 09:00 60 08/04/20 09:00 60 123/75 08/04/20 09:00 Nasal Cannula 2.0 08/04/20 08:51 97.7 08/04/20 08:27 123/75 08/04/20 08:00 60 08/04/20 08:00 97.7 60 18 123/75 (91) 08/04/20 04:00 61 08/04/20 04:00 98.2 64 20 138/76 (96) 98 08/04/20 00:00 98.0 70 20 122/70 (87) 96 08/04/20 00:00 60 08/03/20 21:00 Nasal Cannula 2.0 08/03/20 21:00 59 114/61 08/03/20 20:00 97.7 62 20 114/61 (78) 98 08/03/20 20:00 60 08/03/20 18:00 97.5 08/03/20 16:00 67 08/03/20 16:00 97.5 64 20 119/75 (90) 99 Intake and Output 08/03/20 08/04/20 19:00 07:00 Intake Total 360 ml 100 ml Balance 360 ml 100 ml Intake Oral 360 ml 100 ml # Voids 4 3 Laboratory Tests Test 08/04/20 07:10 White Blood Count 8.4 K/UL (4.8-10.8) Red Blood Count 3.16 M/UL (4.20-5.40) L Hemoglobin 10.3 G/DL (12.0-16.0) L Hematocrit 30.4 % (37.0-47.0) L Mean Corpuscular Volume 96 FL (80-99) Mean Corpuscular Hemoglobin 32.7 PG (27.0-31.0) H Mean Corpuscular Hemoglobin Concent 34.0 G/DL (32.0-36.0) Red Cell Distribution Width 14.7 % (11.6-14.8) Platelet Count 137 K/UL (150-450) L Mean Platelet Volume 8.3 FL (6.5-10.1) Neutrophils (%) (Auto) 63.7 % (45.0-75.0) Lymphocytes (%) (Auto) 20.5 % (20.0-45.0) Monocytes (%) (Auto) 10.2 % (1.0-10.0) H Eosinophils (%) (Auto) 4.5 % (0.0-3.0) H Basophils (%) (Auto) 1.1 % (0.0-2.0) Prothrombin Time 21.5 SEC (9.30-11.50) H Prothromb Time International Ratio 2.1 (0.9-1.1) H Sodium Level 140 MMOL/L (136-145) Potassium Level 5.0 MMOL/L (3.5-5.1) Chloride Level 103 MMOL/L (98-107) Carbon Dioxide Level 32 MMOL/L (21-32) Anion Gap 5 mmol/L (5-15) Blood Urea Nitrogen 22 mg/dL (7-18) H Creatinine 0.8 MG/DL (0.55-1.30) Estimat Glomerular Filtration Rate > 60 mL/min (>60) Glucose Level 85 MG/DL (74-106) Calcium Level 9.0 MG/DL (8.5-10.1) Objective HEAD AND NECK: No JVD LUNGS: Clear. CARDIOVASCULAR: Regular S1 and S2 with no gallop. Defibrillator in left subclavian with multiple incision. ABDOMEN: Soft. EXTREMITIES: No pitting edema. Michael Guerrero MD Aug 04, 2020 14:21
[2020-08-04 16:00] VITALS: BP 107/53
--- NOTE | 2020-08-04 16:37 | Pulmonology Progress Note ---
Subjective ROS Limited/Unobtainable: No Interval Events: c./o dyspnea on activities Constitutional: Reports: no symptoms HEENT: Repors: no symptoms Allergies: Coded Allergies: NITROGLYCERIN (Verified Allergy, Unknown, 01/15/19) PENICILLINS (Verified Allergy, Unknown, 01/15/19) Objective Last 24 Hour Vital Signs Date Time Temp Pulse Resp B/P (MAP) Pulse Ox O2 Delivery O2 Flow Rate FiO2 08/04/20 12:00 98.2 59 18 130/73 (92) 98 08/04/20 12:00 68 08/04/20 11:18 62 08/04/20 11:18 62 123/75 08/04/20 09:00 60 08/04/20 09:00 60 123/75 08/04/20 09:00 Nasal Cannula 2.0 08/04/20 08:51 97.7 08/04/20 08:27 123/75 08/04/20 08:00 60 08/04/20 08:00 97.7 60 18 123/75 (91) 08/04/20 04:00 61 08/04/20 04:00 98.2 64 20 138/76 (96) 98 08/04/20 00:00 98.0 70 20 122/70 (87) 96 08/04/20 00:00 60 08/03/20 21:00 Nasal Cannula 2.0 08/03/20 21:00 59 114/61 08/03/20 20:00 97.7 62 20 114/61 (78) 98 08/03/20 20:00 60 08/03/20 18:00 97.5 Intake and Output 08/03/20 08/04/20 19:00 07:00 Intake Total 360 ml 100 ml Balance 360 ml 100 ml Intake Oral 360 ml 100 ml # Voids 4 3 General Appearance: WD/WN HEENT: normocephalic, atraumatic Respiratory: chest wall non-tender, lungs clear, no respiratory distress Cardiovascular: normal peripheral pulses Abdomen: normal bowel sounds, soft, non tender Extremities: no cyanosis 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 Laboratory Tests 08/04/20 07:10: White Blood Count 8.4, Red Blood Count 3.16L, Hemoglobin 10.3L, Hematocrit 30.4L , Mean Corpuscular Volume 96, Mean Corpuscular Hemoglobin 32.7H, Mean C orpuscular Hemoglobin Concent 34.0, Red Cell Distribution Width 14.7, Platelet Count 137L, Mean Platelet Volume 8.3, Neutrophils (%) (Auto) 63.7, Lymphocytes (%) (Auto) 20.5, Monocytes (%) (Auto) 10.2H, Eosinophils (%) (Auto) 4.5H, Basophils (%) (Auto) 1.1, Prothrombin Time 21.5H, Prothromb Time International Ratio 2.1H, Sodium Level 140, Potassium Level 5.0, Chloride Level 103, Carbon Dioxide Level 32, Anion Gap 5, Blood Urea Nitrogen 22H, Creatinine 0.8, Estimat Glomerular Filtration Rate > 60, Glucose Level 85, Calcium Level 9.0 Current Medications Medications (Trade) Dose Ordered Sig/Nancy Route PRN Reason Start Time Stop Time Status Last Admin Dose Admin Acetaminophen (Tylenol) 650 mg Q4H PRN ORAL FEVER 07/29/20 19:00 08/28/20 18:59 Acetaminophen (Tylenol) 650 mg Q4H PRN ORAL Mild Pain (Pain Scale 1-3) 07/30/20 12:15 08/29/20 12:14 Ascorbic Acid (Vitamin C) 1,000 mg DAILY ORAL 07/30/20 09:00 08/29/20 08:59 08/04/20 08:27 Aspirin (ASA) 162 mg DAILY ORAL 07/30/20 09:00 09/13/20 08:59 08/04/20 08:26 Atorvastatin Calcium (Lipitor) 20 mg BEDTIME ORAL 07/30/20 21:00 10/28/20 20:59 08/03/20 21:11 Baclofen (Lioresal) 10 mg THREE TIMES A DAY ORAL 07/30/20 09:00 08/29/20 08:59 08/04/20 13:49 Carvedilol (Coreg) 25 mg EVERY 12 HOURS ORAL 07/30/20 00:00 08/29/20 00:00 08/04/20 11:18 Digoxin (Lanoxin) 0.125 mg DAILY ORAL 07/30/20 09:00 10/28/20 08:59 08/04/20 11:18 Diltiazem HCl (Cardizem) 10 mg Q1H PRN IV heart rate more than 120, 07/29/20 19:00 08/28/20 18:59 Diphenhydramine HCl (Benadryl) 25 mg Q6H PRN ORAL Itching 07/29/20 23:45 08/28/20 23:44 Docusate Sodium (Colace) 100 mg TWICE A DAY ORAL 07/30/20 09:00 08/29/20 08:59 08/04/20 08:25 Enalaprilat (Vasotec) 2.5 mg Q6H PRN IV sbp more than 160 07/29/20 19:00 08/28/20 18:59 Furosemide (Lasix) 40 mg EVERY 12 HOURS IV 07/30/20 00:00 08/29/20 00:00 08/04/20 11:17 Guaifenesin/ Dextromethorphan (Robitussin DM Syrup) 5 ml Q6H PRN ORAL For Cough 07/31/20 10:00 10/29/20 09:59 08/03/20 21:11 Hydromorphone HCl (Dilaudid) 1 mg Q3H PRN IVP Severe Pain (Pain Scale 7-10) 07/30/20 12:00 08/06/20 11:59 08/04/20 12:10 Lidocaine (Lidoderm 5% PATCH) 1 patch DAILY PRN TDERMAL For Pain 07/29/20 23:45 10/27/20 23:44 08/04/20 15:04 Lisinopril (ZestriL) 10 mg DAILY ORAL 07/30/20 09:00 08/29/20 08:59 08/04/20 08:27 Magnesium Oxide (Mag-Ox 400mg) 400 mg DAILYPRN PRN ORAL Constipation 07/30/20 08:30 08/29/20 08:29 08/03/20 08:44 Multivitamins (Multivitamins) 1 tab DAILY ORAL 07/30/20 09:00 08/29/20 08:59 08/04/20 08:26 Ondansetron HCl (Zofran) 4 mg Q6H PRN IVP Nausea & Vomiting 07/29/20 19:00 08/28/20 18:59 08/04/20 12:03 Oxycodone HCl (Roxicodone) 15 mg Q6H PRN ORAL Moderate Breakthru Pain (5-7) 07/29/20 23:31 08/05/20 23:30 Polyethylene Glycol (Miralax) 17 gm DAILYPRN PRN ORAL Constipation 07/29/20 19:00 08/28/20 18:59 08/03/20 13:43 Potassium Chloride (K-Dur) 20 meq TWICE A DAY ORAL 07/30/20 09:00 10/28/20 08:59 08/04/20 11:17 Regadenoson (Lexiscan) 0.4 mg ONCE PRN IV CARDIOLOGY 08/02/20 15:00 08/05/20 14:59 08/04/20 10:11 Sucralfate (Carafate) 1 gm BEFORE MEALS AND HS ORAL 07/30/20 00:00 10/28/20 00:00 08/04/20 11:18 Warfarin Sodium (Coumadin per pharmacy) 1 ea DAILY PRN MISC Per rx protocol 07/29/20 23:45 08/28/20 23:44 Warfarin Sodium (Coumadin) 9 mg COUMADIN ORAL 08/04/20 17:00 08/04/20 23:59 Zolpidem Tartrate (Ambien) 10 mg BEDTIME PRN ORAL Insomnia 07/30/20 22:15 08/05/20 23:44 08/03/20 23:04 Assessment/Plan Problems: (1) Chronic atrial fibrillation (2) Chronic anticoagulation (3) Macrocytic anemia (4) ACS (acute coronary syndrome) (5) Pacemaker Assessment/Plan stress test today all reviewed pain is better controlled telemetry monitoring echocardiogram titrate cardiac meds pharmacy to dose coumadin pain management Zarina Calderon MD Aug 04, 2020 16:36
[2020-08-04] MEDS ORDERED: Warfarin Sod 4 MG, Warfarin Sod 5 MG ORAL SCH ×2 (17:00)
--- NOTE | 2020-08-04 19:10 | Internal Med Progress Note ---
Subjective Date of Service: Aug 04, 2020 Physician Name Angelo Brice Attending Physician Yuri Escalera MD Current Medications Medications (Trade) Dose Ordered Sig/Nancy Route PRN Reason Start Time Stop Time Status Last Admin Dose Admin Acetaminophen (Tylenol) 650 mg Q4H PRN ORAL FEVER 07/29/20 19:00 08/28/20 18:59 Acetaminophen (Tylenol) 650 mg Q4H PRN ORAL Mild Pain (Pain Scale 1-3) 07/30/20 12:15 08/29/20 12:14 Ascorbic Acid (Vitamin C) 1,000 mg DAILY ORAL 07/30/20 09:00 08/29/20 08:59 08/04/20 08:27 Aspirin (ASA) 162 mg DAILY ORAL 07/30/20 09:00 09/13/20 08:59 08/04/20 08:26 Atorvastatin Calcium (Lipitor) 20 mg BEDTIME ORAL 07/30/20 21:00 10/28/20 20:59 08/03/20 21:11 Baclofen (Lioresal) 10 mg THREE TIMES A DAY ORAL 07/30/20 09:00 08/29/20 08:59 08/04/20 17:35 Carvedilol (Coreg) 25 mg EVERY 12 HOURS ORAL 07/30/20 00:00 08/29/20 00:00 08/04/20 11:18 Digoxin (Lanoxin) 0.125 mg DAILY ORAL 07/30/20 09:00 10/28/20 08:59 08/04/20 11:18 Diltiazem HCl (Cardizem) 10 mg Q1H PRN IV heart rate more than 120, 07/29/20 19:00 08/28/20 18:59 Diphenhydramine HCl (Benadryl) 25 mg Q6H PRN ORAL Itching 07/29/20 23:45 08/28/20 23:44 Docusate Sodium (Colace) 100 mg TWICE A DAY ORAL 07/30/20 09:00 08/29/20 08:59 08/04/20 17:35 Enalaprilat (Vasotec) 2.5 mg Q6H PRN IV sbp more than 160 07/29/20 19:00 08/28/20 18:59 Furosemide (Lasix) 40 mg EVERY 12 HOURS IV 07/30/20 00:00 08/29/20 00:00 08/04/20 11:17 Guaifenesin/ Dextromethorphan (Robitussin DM Syrup) 5 ml Q6H PRN ORAL For Cough 07/31/20 10:00 10/29/20 09:59 08/03/20 21:11 Hydromorphone HCl (Dilaudid) 1 mg Q3H PRN IVP Severe Pain (Pain Scale 7-10) 07/30/20 12:00 08/06/20 11:59 08/04/20 17:36 Lidocaine (Lidoderm 5% PATCH) 1 patch DAILY PRN TDERMAL For Pain 07/29/20 23:45 10/27/20 23:44 08/04/20 15:04 Lisinopril (ZestriL) 10 mg DAILY ORAL 07/30/20 09:00 08/29/20 08:59 08/04/20 08:27 Magnesium Oxide (Mag-Ox 400mg) 400 mg DAILYPRN PRN ORAL Constipation 07/30/20 08:30 08/29/20 08:29 08/03/20 08:44 Multivitamins (Multivitamins) 1 tab DAILY ORAL 07/30/20 09:00 08/29/20 08:59 08/04/20 08:26 Ondansetron HCl (Zofran) 4 mg Q6H PRN IVP Nausea & Vomiting 07/29/20 19:00 08/28/20 18:59 08/04/20 12:03 Oxycodone HCl (Roxicodone) 15 mg Q6H PRN ORAL Moderate Breakthru Pain (5-7) 07/29/20 23:31 08/05/20 23:30 Polyethylene Glycol (Miralax) 17 gm DAILYPRN PRN ORAL Constipation 07/29/20 19:00 08/28/20 18:59 08/03/20 13:43 Regadenoson (Lexiscan) 0.4 mg ONCE PRN IV CARDIOLOGY 08/02/20 15:00 08/05/20 14:59 08/04/20 10:11 Sucralfate (Carafate) 1 gm BEFORE MEALS AND HS ORAL 07/30/20 00:00 10/28/20 00:00 08/04/20 16:57 Warfarin Sodium (Coumadin per pharmacy) 1 ea DAILY PRN MISC Per rx protocol 07/29/20 23:45 08/28/20 23:44 Warfarin Sodium (Coumadin) 9 mg COUMADIN ORAL 08/04/20 17:00 08/04/20 23:59 08/04/20 18:06 Zolpidem Tartrate (Ambien) 10 mg BEDTIME PRN ORAL Insomnia 07/30/20 22:15 08/05/20 23:44 08/03/20 23:04 Allergies: Coded Allergies: NITROGLYCERIN (Verified Allergy, Unknown, 01/15/19) PENICILLINS (Verified Allergy, Unknown, 01/15/19) ROS Limited/Unobtainable: No Constitutional: Reports: no symptoms HEENT: Reports: no symptoms Cardiovascular: Reports: no symptoms Respiratory: Reports: no symptoms Gastrointestinal/Abdominal: Reports: no symptoms Genitourinary: Reports: no symptoms Neurologic/Psychiatric: Reports: no symptoms Subjective 65 YO F with history of CHF and AICD admitted with chest pain. Now CHF exacerbation. Cover for Int Med-DR Escalera Objective Last Vital Signs Date Time Temp Pulse Resp B/P (MAP) Pulse Ox O2 Delivery O2 Flow Rate FiO2 08/04/20 16:00 60 08/04/20 16:00 98.1 18 107/53 (71) 08/04/20 12:00 98 08/04/20 09:00 Nasal Cannula 2.0 Laboratory Tests Test 08/04/20 07:10 White Blood Count 8.4 K/UL (4.8-10.8) Red Blood Count 3.16 M/UL (4.20-5.40) L Hemoglobin 10.3 G/DL (12.0-16.0) L Hematocrit 30.4 % (37.0-47.0) L Mean Corpuscular Volume 96 FL (80-99) Mean Corpuscular Hemoglobin 32.7 PG (27.0-31.0) H Mean Corpuscular Hemoglobin Concent 34.0 G/DL (32.0-36.0) Red Cell Distribution Width 14.7 % (11.6-14.8) Platelet Count 137 K/UL (150-450) L Mean Platelet Volume 8.3 FL (6.5-10.1) Neutrophils (%) (Auto) 63.7 % (45.0-75.0) Lymphocytes (%) (Auto) 20.5 % (20.0-45.0) Monocytes (%) (Auto) 10.2 % (1.0-10.0) H Eosinophils (%) (Auto) 4.5 % (0.0-3.0) H Basophils (%) (Auto) 1.1 % (0.0-2.0) Prothrombin Time 21.5 SEC (9.30-11.50) H Prothromb Time International Ratio 2.1 (0.9-1.1) H Sodium Level 140 MMOL/L (136-145) Potassium Level 5.0 MMOL/L (3.5-5.1) Chloride Level 103 MMOL/L (98-107) Carbon Dioxide Level 32 MMOL/L (21-32) Anion Gap 5 mmol/L (5-15) Blood Urea Nitrogen 22 mg/dL (7-18) H Creatinine 0.8 MG/DL (0.55-1.30) Estimat Glomerular Filtration Rate > 60 mL/min (>60) Glucose Level 85 MG/DL (74-106) Calcium Level 9.0 MG/DL (8.5-10.1) Intake and Output 08/03/20 08/04/20 19:00 07:00 Intake Total 360 ml 100 ml Balance 360 ml 100 ml Intake Oral 360 ml 100 ml # Voids 4 3 Objective PHYSICAL EXAMINATION: GENERAL: Patient is awake, responsive, in no acute distress. HEAD AND NECK: Pupils are equal and reactive to light. Extraocular movements are intact. Neck was supple. No JVD. LUNGS: Good air entry with no wheezing or rales. Decreased in bases. HEART: S1, S2. Irregular. Systolic ejection murmur left sternal border. No gallop. AICD in left-sided chest wall. ABDOMEN: Soft, nondistended, nontender. Positive bowel sounds. Mildly obese. Midline surgical scar was noted from prior surgery. Patient has a right-sided ventral hernia. EXTREMITIES: No cyanosis, clubbing. Trace edema bilateral lower extremities. NEUROLOGIC: Cranial nerves II through XII grossly intact. Motor is 5/5 in all extremities. RECTAL: Refused and deferred. GENITOURINARY: Refused and deferred. PSYCHIATRIC: Mood and affect is intact. Assessment/Plan Assessment/Plan ASSESSMENT: 1. Chest pain, possible acute coronary syndrome. 2. Acute on chronic congestive heart failure; diastolic dysfunction 3. Ventral hernia without obstruction or gangrene. 4. Chronic atrial fibrillation. 5. Dilated cardiomyopathy. 6. Morbid obesity. 7. Fibromyalgia. 8. Hypertension. 9. COPD emphysema. 10. Severe osteoarthritis of the knees. 11. AICD in situ PLAN: 1. Admit patient to monitored unit 2. Ruled out for acute GA by serial cardiac enzymes. 3. Dr. Calderon = Pulmonary Critical Care. 4. Start patient on Lasix IV. Resume home medication. 5. Code status is Full Code. 6. DVT prophylaxis, she is already on Coumadin. 7. Cardiology=Dr Guerrero 8. Echocardiogram LVEF=60% 9. Nuclear stress test on Tue08/04/20=non ischemic Angelo Brice MD Aug 04, 2020 19:10
[2020-08-04 20:00] VITALS: BP 113/60
[2020-08-04] MEDS: Atorvastatin 20mg tab ORAL SCH (20:21)
[2020-08-04] MEDS: Zolpidem 5mg tab ORAL PRN (23:40)
[2020-08-05] VITALS: BP 103/60
[2020-08-05] MEDS: HYDROmorphone 1mg/ml Carpuject IVP PRN ×3 (03:21→12:53)
[2020-08-05 04:00] VITALS: BP 122/88
[2020-08-05] MEDS: Sucralfate 1gm tab ORAL SCH ×3 (05:57→12:53)
[2020-08-05] MEDS: guaiFENesin /DM 10ml syrup ORAL PRN (06:16)
[2020-08-05 07:32] LABS: INR 2.6 (0.9-1.1)
[2020-08-05 08:00] VITALS: BP 98/60
[2020-08-05] MEDS: Ascorbic Acid 500mg tab ORAL SCH (08:51)
[2020-08-05] MEDS: Lisinopril 10mg tab ORAL SCH (08:52)
[2020-08-05] MEDS: Docusate 100mg cap ORAL SCH (08:52)
[2020-08-05] MEDS: Aspirin Baby 81mg ORAL SCH (08:52)
[2020-08-05] MEDS: Digoxin 0.125mg tab ORAL SCH (08:52)
[2020-08-05 08:53] VITALS: BP 98/60
[2020-08-05] MEDS: Carvedilol 25mg Tab ORAL SCH (08:53)
--- NOTE | 2020-08-05 11:36 | Cardiac Electrophysiology PN ---
Assessment/Plan Assessment/Plan 1. Status post dual-chamber [facility] Kristian defibrillator generator change in March 2020 at [facility]. Interrogated and showed Nl Fx Says doesn't want to follow up with Dr. Santoro 2. Chronic atrial fibrillation. On digoxin 0.125 mg daily, Coreg 25 mg b.i.d. and Coumadin. 3. Exacerbation of congestive heart failure. The patient has diastolic dysfunction. Ejection fraction is within normal range. On Lasix 40 mg IV b.i.d., Coreg 25 mg b.i.d., Dig, lisinopril 10 mg daily. 4. Left shoulder and neck pain FU Dr Traore at [facility] 5. Left chest pain. Mostly shoulder pain. Ruled out for myocardial infarction Nuclear stress test nonischemic. 6. Fibromyalgia. 7. COPD. 8. Osteoarthritis 9. Ventral hernia. OK to DC DW RN Subjective Subjective V paced. ICD interrogated and showed Nl Fx. Stress test from yesterday showed no ischemia Objective Last 24 Hour Vital Signs Date Time Temp Pulse Resp B/P (MAP) Pulse Ox O2 Delivery O2 Flow Rate FiO2 08/05/20 09:00 Nasal Cannula 1.0 08/05/20 08:53 65 98/60 08/05/20 08:52 65 08/05/20 08:52 98/60 08/05/20 08:04 56 08/05/20 08:00 97.6 65 18 98/60 (73) 95 08/05/20 04:00 97.5 62 18 122/88 (99) 95 08/05/20 04:00 60 08/05/20 00:00 60 08/05/20 00:00 98.0 62 18 103/60 (74) 100 08/04/20 21:00 Nasal Cannula 1.0 08/04/20 21:00 73 08/04/20 20:22 60 107/53 08/04/20 20:00 98.1 63 18 113/60 (77) 100 08/04/20 16:00 60 08/04/20 16:00 98.1 62 18 107/53 (71) 08/04/20 12:00 98.2 59 18 130/73 (92) 98 08/04/20 12:00 68 Intake and Output 08/04/20 08/05/20 19:00 07:00 Intake Total 480 ml 1200 ml Output Total 800 ml 1600 ml Balance -320 ml -400 ml Intake Oral 480 ml 1200 ml Output Urine Total 800 ml 1600 ml # Bowel Movements 1 Laboratory Tests Test 08/05/20 06:35 Prothrombin Time 26.7 SEC (9.30-11.50) H Prothromb Time International Ratio 2.6 (0.9-1.1) H Objective HEAD AND NECK: No JVD LUNGS: Clear. CARDIOVASCULAR: Regular S1 and S2 with no gallop. Defibrillator in left subclavian with multiple incision. ABDOMEN: Soft. EXTREMITIES: No pitting edema. Michael Guerrero MD Aug 05, 2020 11:36
--- NOTE | 2020-08-05 11:51 | Pulmonology Progress Note ---
Subjective ROS Limited/Unobtainable: No Interval Events: c./o dyspnea on activities Constitutional: Reports: no symptoms HEENT: Repors: no symptoms Allergies: Coded Allergies: NITROGLYCERIN (Verified Allergy, Unknown, 01/15/19) PENICILLINS (Verified Allergy, Unknown, 01/15/19) Objective Last 24 Hour Vital Signs Date Time Temp Pulse Resp B/P (MAP) Pulse Ox O2 Delivery O2 Flow Rate FiO2 08/05/20 09:00 Nasal Cannula 1.0 08/05/20 08:53 65 98/60 08/05/20 08:52 65 08/05/20 08:52 98/60 08/05/20 08:04 56 08/05/20 08:00 97.6 65 18 98/60 (73) 95 08/05/20 04:00 97.5 62 18 122/88 (99) 95 08/05/20 04:00 60 08/05/20 00:00 60 08/05/20 00:00 98.0 62 18 103/60 (74) 100 08/04/20 21:00 Nasal Cannula 1.0 08/04/20 21:00 73 08/04/20 20:22 60 107/53 08/04/20 20:00 98.1 63 18 113/60 (77) 100 08/04/20 16:00 60 08/04/20 16:00 98.1 62 18 107/53 (71) 08/04/20 12:00 98.2 59 18 130/73 (92) 98 08/04/20 12:00 68 Intake and Output 08/04/20 08/05/20 19:00 07:00 Intake Total 480 ml 1200 ml Output Total 800 ml 1600 ml Balance -320 ml -400 ml Intake Oral 480 ml 1200 ml Output Urine Total 800 ml 1600 ml # Bowel Movements 1 General Appearance: WD/WN HEENT: normocephalic, atraumatic Respiratory: chest wall non-tender, lungs clear, no respiratory distress Cardiovascular: normal peripheral pulses Abdomen: normal bowel sounds, soft, non tender Extremities: no cyanosis Neurologic: c application developer II-XII grossly normal Lymphatic: no neck adenopathy Laboratory Tests 08/05/20 06:35: Prothrombin Time 26.7H, Prothromb Time International Ratio 2.6H Current Medications Medications (Trade) Dose Ordered Sig/Nancy Route PRN Reason Start Time Stop Time Status Last Admin Dose Admin Acetaminophen (Tylenol) 650 mg Q4H PRN ORAL FEVER 07/29/20 19:00 08/28/20 18:59 Acetaminophen (Tylenol) 650 mg Q4H PRN ORAL Mild Pain (Pain Scale 1-3) 07/30/20 12:15 08/29/20 12:14 Ascorbic Acid (Vitamin C) 1,000 mg DAILY ORAL 07/30/20 09:00 08/29/20 08:59 08/05/20 08:51 Aspirin (ASA) 162 mg DAILY ORAL 07/30/20 09:00 09/13/20 08:59 08/05/20 08:52 Atorvastatin Calcium (Lipitor) 20 mg BEDTIME ORAL 07/30/20 21:00 10/28/20 20:59 08/04/20 20:21 Baclofen (Lioresal) 10 mg THREE TIMES A DAY ORAL 07/30/20 09:00 08/29/20 08:59 08/05/20 08:53 Carvedilol (Coreg) 25 mg EVERY 12 HOURS ORAL 07/30/20 00:00 08/29/20 00:00 08/05/20 08:53 Digoxin (Lanoxin) 0.125 mg DAILY ORAL 07/30/20 09:00 10/28/20 08:59 08/05/20 08:52 Diltiazem HCl (Cardizem) 10 mg Q1H PRN IV heart rate more than 120, 07/29/20 19:00 08/28/20 18:59 Diphenhydramine HCl (Benadryl) 25 mg Q6H PRN ORAL Itching 07/29/20 23:45 08/28/20 23:44 Docusate Sodium (Colace) 100 mg TWICE A DAY ORAL 07/30/20 09:00 08/29/20 08:59 08/05/20 08:52 Enalaprilat (Vasotec) 2.5 mg Q6H PRN IV sbp more than 160 07/29/20 19:00 08/28/20 18:59 Furosemide (Lasix) 40 mg EVERY 12 HOURS IV 07/30/20 00:00 08/29/20 00:00 08/05/20 08:55 Guaifenesin/ Dextromethorphan (Robitussin DM Syrup) 5 ml Q6H PRN ORAL For Cough 07/31/20 10:00 10/29/20 09:59 08/05/20 06:16 Hydromorphone HCl (Dilaudid) 1 mg Q3H PRN IVP Severe Pain (Pain Scale 7-10) 07/30/20 12:00 08/06/20 11:59 08/05/20 08:54 Lidocaine (Lidoderm 5% PATCH) 1 patch DAILY PRN TDERMAL For Pain 07/29/20 23:45 10/27/20 23:44 08/04/20 15:04 Lisinopril (ZestriL) 10 mg DAILY ORAL 07/30/20 09:00 08/29/20 08:59 08/05/20 08:52 Magnesium Oxide (Mag-Ox 400mg) 400 mg DAILYPRN PRN ORAL Constipation 07/30/20 08:30 08/29/20 08:29 08/03/20 08:44 Multivitamins (Multivitamins) 1 tab DAILY ORAL 07/30/20 09:00 08/29/20 08:59 08/05/20 08:52 Ondansetron HCl (Zofran) 4 mg Q6H PRN IVP Nausea & Vomiting 07/29/20 19:00 08/28/20 18:59 08/05/20 10:52 Oxycodone HCl (Roxicodone) 15 mg Q6H PRN ORAL Moderate Breakthru Pain (5-7) 07/29/20 23:31 08/05/20 23:30 Polyethylene Glycol (Miralax) 17 gm DAILYPRN PRN ORAL Constipation 07/29/20 19:00 08/28/20 18:59 08/03/20 13:43 Regadenoson (Lexiscan) 0.4 mg ONCE PRN IV CARDIOLOGY 08/02/20 15:00 08/05/20 14:59 08/04/20 10:11 Sucralfate (Carafate) 1 gm BEFORE MEALS AND HS ORAL 07/30/20 00:00 10/28/20 00:00 08/05/20 10:52 Warfarin Sodium (Coumadin per pharmacy) 1 ea DAILY PRN MISC Per rx protocol 07/29/20 23:45 08/28/20 23:44 Warfarin Sodium (Coumadin) 2.5 mg ONCE ORAL 08/05/20 17:00 08/05/20 19:00 Zolpidem Tartrate (Ambien) 10 mg BEDTIME PRN ORAL Insomnia 07/30/20 22:15 08/05/20 23:44 08/04/20 23:40 Assessment/Plan Problems: (1) Chronic atrial fibrillation (2) Chronic anticoagulation (3) Macrocytic anemia (4) ACS (acute coronary syndrome) (5) Pacemaker Assessment/Plan stress test was negative all reviewed pain is better controlled telemetry monitoring echocardiogram titrate cardiac meds pain management dc planning Zarina Calderon MD Aug 05, 2020 11:51
--- NOTE | 2020-08-05 16:49 | Internal Med Progress Note ---
Subjective Date of Service: Aug 05, 2020 Physician Name BabsAngelo Attending Physician Yuri Escalera MD Current Medications Medications (Trade) Dose Ordered Sig/Nancy Route PRN Reason Start Time Stop Time Status Last Admin Dose Admin Acetaminophen (Tylenol) 650 mg Q4H PRN ORAL FEVER 07/29/20 19:00 08/28/20 18:59 Acetaminophen (Tylenol) 650 mg Q4H PRN ORAL Mild Pain (Pain Scale 1-3) 07/30/20 12:15 08/29/20 12:14 Ascorbic Acid (Vitamin C) 1,000 mg DAILY ORAL 07/30/20 09:00 08/29/20 08:59 08/05/20 08:51 Aspirin (ASA) 162 mg DAILY ORAL 07/30/20 09:00 09/13/20 08:59 08/05/20 08:52 Atorvastatin Calcium (Lipitor) 20 mg BEDTIME ORAL 07/30/20 21:00 10/28/20 20:59 08/04/20 20:21 Baclofen (Lioresal) 10 mg THREE TIMES A DAY ORAL 07/30/20 09:00 08/29/20 08:59 08/05/20 12:53 Carvedilol (Coreg) 25 mg EVERY 12 HOURS ORAL 07/30/20 00:00 08/29/20 00:00 08/05/20 08:53 Digoxin (Lanoxin) 0.125 mg DAILY ORAL 07/30/20 09:00 10/28/20 08:59 08/05/20 08:52 Diltiazem HCl (Cardizem) 10 mg Q1H PRN IV heart rate more than 120, 07/29/20 19:00 08/28/20 18:59 Diphenhydramine HCl (Benadryl) 25 mg Q6H PRN ORAL Itching 07/29/20 23:45 08/28/20 23:44 Docusate Sodium (Colace) 100 mg TWICE A DAY ORAL 07/30/20 09:00 08/29/20 08:59 08/05/20 08:52 Enalaprilat (Vasotec) 2.5 mg Q6H PRN IV sbp more than 160 07/29/20 19:00 08/28/20 18:59 Furosemide (Lasix) 40 mg EVERY 12 HOURS IV 07/30/20 00:00 08/29/20 00:00 08/05/20 08:55 Guaifenesin/ Dextromethorphan (Robitussin DM Syrup) 5 ml Q6H PRN ORAL For Cough 07/31/20 10:00 10/29/20 09:59 08/05/20 06:16 Hydromorphone HCl (Dilaudid) 1 mg Q3H PRN IVP Severe Pain (Pain Scale 7-10) 07/30/20 12:00 08/06/20 11:59 08/05/20 12:53 Lidocaine (Lidoderm 5% PATCH) 1 patch DAILY PRN TDERMAL For Pain 07/29/20 23:45 10/27/20 23:44 08/04/20 15:04 Lisinopril (ZestriL) 10 mg DAILY ORAL 07/30/20 09:00 08/29/20 08:59 08/05/20 08:52 Magnesium Oxide (Mag-Ox 400mg) 400 mg DAILYPRN PRN ORAL Constipation 07/30/20 08:30 08/29/20 08:29 08/03/20 08:44 Multivitamins (Multivitamins) 1 tab DAILY ORAL 07/30/20 09:00 08/29/20 08:59 08/05/20 08:52 Ondansetron HCl (Zofran) 4 mg Q6H PRN IVP Nausea & Vomiting 07/29/20 19:00 08/28/20 18:59 08/05/20 10:52 Oxycodone HCl (Roxicodone) 15 mg Q6H PRN ORAL Moderate Breakthru Pain (5-7) 07/29/20 23:31 08/05/20 23:30 Polyethylene Glycol (Miralax) 17 gm DAILYPRN PRN ORAL Constipation 07/29/20 19:00 08/28/20 18:59 08/03/20 13:43 Sucralfate (Carafate) 1 gm BEFORE MEALS AND HS ORAL 07/30/20 00:00 10/28/20 00:00 08/05/20 12:53 Warfarin Sodium (Coumadin per pharmacy) 1 ea DAILY PRN MISC Per rx protocol 07/29/20 23:45 08/28/20 23:44 Warfarin Sodium (Coumadin) 2.5 mg ONCE ORAL 12/1/20 17:00 08/05/20 19:00 Zolpidem Tartrate (Ambien) 10 mg BEDTIME PRN ORAL Insomnia 07/30/20 22:15 08/05/20 23:44 08/04/20 23:40 Allergies: Coded Allergies: NITROGLYCERIN (Verified Allergy, Unknown, 01/15/19) PENICILLINS (Verified Allergy, Unknown, 01/15/19) Subjective 65 YO F with history of CHF and AICD admitted with chest pain. Now CHF exacerbation. Cover for Int Pee-DR Escalera Objective Last Vital Signs Date Time Temp Pulse Resp B/P (MAP) Pulse Ox O2 Delivery O2 Flow Rate FiO2 08/05/20 09:00 Nasal Cannula 1.0 08/05/20 08:53 65 98/60 08/05/20 08:00 97.6 18 95 Laboratory Tests Test 08/05/20 06:35 Prothrombin Time 26.7 SEC (9.30-11.50) H Prothromb Time International Ratio 2.6 (0.9-1.1) H Intake and Output 08/04/20 08/05/20 19:00 07:00 Intake Total 480 ml 1200 ml Output Total 800 ml 1600 ml Balance -320 ml -400 ml Intake Oral 480 ml 1200 ml Output Urine Total 800 ml 1600 ml # Bowel Movements 1 Objective PHYSICAL EXAMINATION: GENERAL: Patient is awake, responsive, in no acute distress. HEAD AND NECK: Pupils are equal and reactive to light. Extraocular movements are intact. Neck was supple. No JVD. LUNGS: Good air entry with no wheezing or rales. Decreased in bases. HEART: S1, S2. Irregular. Systolic ejection murmur left sternal border. No gallop. AICD in left-sided chest wall. ABDOMEN: Soft, nondistended, nontender. Positive bowel sounds. Mildly obese. Midline surgical scar was noted from prior surgery. Patient has a right-sided ventral hernia. EXTREMITIES: No cyanosis, clubbing. Trace edema bilateral lower extremities. NEUROLOGIC: Cranial nerves II through XII grossly intact. Motor is 5/5 in all extremities. RECTAL: Refused and deferred. GENITOURINARY: Refused and deferred. PSYCHIATRIC: Mood and affect is intact. Assessment/Plan Assessment/Plan ASSESSMENT: 1. Chest pain, possible acute coronary syndrome. 2. Acute on chronic congestive heart failure; diastolic dysfunction 3. Ventral hernia without obstruction or gangrene. 4. Chronic atrial fibrillation. 5. Dilated cardiomyopathy. 6. Morbid obesity. 7. Fibromyalgia. 8. Hypertension. 9. COPD emphysema. 10. Severe osteoarthritis of the knees. 11. AICD in situ PLAN: 1. Admit patient to monitored unit 2. Ruled out for acute ND by serial cardiac enzymes. 3. Dr. Calderon = Pulmonary Critical Care. 4. Start patient on Lasix IV. Resume home medication. 5. Code status is Full Code. 6. DVT prophylaxis, she is already on Coumadin. 7. Cardiology=Dr Guerrero 8. Echocardiogram LVEF=60% 9. Nuclear stress test on Tue08/04/20=non ischemic 10. Discharge home with home health Angelo Brice MD Aug 05, 2020 16:49
[2020-08-05] MEDS ORDERED: Warfarin Sodium 2.5mg ORAL SCH (17:00)
--- NOTE | 2020-08-06 11:13 | Discharge Summary ---
Discharge Summary Discharge Summary _ DATE OF ADMISSION: 07/29/2020 DATE OF DISCHARGE: 08/05/2020 DISCHARGED BY: Dr. Escalera REASON FOR ADMISSION: 65 years old female with past medical history of COPD, congestive heart failure, pacemaker, hypertension, nonischemic dilated cardiomyopathy, rheumatic heart disease, paroxysmal atrial fibrillation, status post dual-chamber implanted cardioverter defibrillator, presented to the hospital complaining of shortness of breath. Patient was recently seen in her primary physician office/ Dr. Escalera office with complaints of shortness of breath , palpitations. Labs were drawn. Her status got progressively worse and she was advised to come to emergency room for further evaluation. Of note patient was recently hospitalized at [facility] with palpitations, dizziness and shortness of breath. Laboratory work-up revealed no leukocytosis, hemoglobin 9.7 ,hematocrit 30 ,platelet 117. Stable electrolytes. BUN 26, creatinine 1.0. First troponin 0.026, pro BNP 2679 . EKG revealed paced rhythm Albumin 3.3 INR 2.1 ( patient is on chronic Coumadin) Urinalysis revealed +1 leukocyte esterase . otherwise no pyuria . Patient recently had negative myocardial perfusion SPECT exam with no evidence of coronary calcification on recent CT imaging. Patient had total 7% myocardial defect with 3% reversible 4% fixed. Chest x-ray revealed pulmonary vascular congestion, cardiomegaly , no acute p rocess. In emergency department patient was placed on supplemental oxygen via nasal cannula , received analgesic , antiemetic, nebulizing treatment with albuterol, and admitted to telemetry floor for further management CONSULTANTS: yard labor supervisor Dr. Lewis pulmonary Dr. Calderon HOSPITAL COURSE: Patient admitted to telemetry floor. Supplemental oxygen provided and titrated to keep oximetry above 92%; pulmonary toilet provided. Serial troponin were negative. EKG revealed paced rhythm. Patient with chronic atrial fibrillation. Anticoagulation with Coumadin continued along with digoxin and Coreg ; heart rate remained stable. INR remained therapeutic Patient status post dual-chamber St Kristian defibrillator generator change in March 2020 . Pacemaker interrogated and showed normal functioning. Echocardiogram revealed preserved ejection fraction of 60%. No evidence of left ventricular hypertrophy. Moderate to severe mitral and tricuspid regurgitation. Moderate aortic regurgitation. Right ventricular systolic pressure of 90 consistent with severe pulmonary hypertension. Patient initially was placed on IV Lasix with close monitoring of volumes and cardiorenal parameters. Pro BNP trended down. Patient continue on beta-naveed , digoxin and JODI inhibitor. Patient was ruled out for NM . Left chest pain was mostly due to left shoulder pain. Nuclear stress test was nonischemic with calculated post-stress ejection fraction of 61% Hemoglobin and hematocrit were closely monitored with goal to keep hemoglobin above 7 , remained in the baseline; and prior to discharge hemoglobin 10.3 , hematocrit 30.4. Renal parameters and electrolytes were closely monitored , electrolytes corrected as needed . BUN down to 22 , creatinine remained stable. Pain management was addressed as needed. Supportive care provided. Patient clinically stabilized stool for occult blood negative. Patient clinically stabilized and was ready for discharge home with home health services FINAL DIAGNOSES: Acute on chronic diastolic congestive heart failure with preserved ejection fraction Chest pain , possible acute coronary syndrome Left chest pain, mostly shoulder pain Fibromyalgia Status post dual chamber St Kristian defibrillator generator change in March 2020 Chronic atrial fibrillation Chronic anticoagulation COPD/emphysema Hypertension Morbid obesity Severe osteoarthritis of the knee Anemia DISCHARGE MEDICATIONS: See Medication Reconciliation list. DISCHARGE INSTRUCTIONS: Patient was discharged home Follow-up with a primary care provider in 1 week. I have been assigned to dictate discharge summary for this account. I was not involved in the patient's management. Rae Brown NP Aug 06, 2020 11:13
== END 2020-08-05 17:30 | disposition home or self-care (01) | DRG 292 ==
LOC: EMR 17:30 → EDBEDREQ 17:38 → 2E 18:08 → EDBEDREQ 21:31 → 2E 07-30 15:14
DX: I11.0 Hypertensive heart disease with heart failure (principal); I24.9 Acute ischemic heart disease, unspecified; I48.20 Chronic atrial fibrillation, unspecified; I50.33 Acute on chronic diastolic (congestive) heart failure; I42.0 Dilated cardiomyopathy; Z88.6 Allergy status to analgesic agent; Z88.0 Allergy status to penicillin; Z88.8 Allergy status to other drugs, medicaments and biological substances; Z95.810 Presence of automatic (implantable) cardiac defibrillator; M79.7 Fibromyalgia; K43.9 Ventral hernia without obstruction or gangrene; E66.01 Morbid (severe) obesity due to excess calories; J43.9 Emphysema, unspecified; M17.0 Bilateral primary osteoarthritis of knee; I34.0 Nonrheumatic mitral (valve) insufficiency; I36.1 Nonrheumatic tricuspid (valve) insufficiency; I27.20 Pulmonary hypertension, unspecified; M25.512 Pain in left shoulder; Z79.01 Long term (current) use of anticoagulants; D64.9 Anemia, unspecified
CPT/HCPCS: 36415; 71045; 78452; 80048; 80053; 80061; 80162; 81003; 82270; 82378; 82550; 82607; 82746; 83540; 83550; 83615; 83735; 83880; 84100; 84443; 84484; 85007; 85025; 85044; 85060; 85610; 85651; 85730; 86140; 87081; 93005; 93017; 93306; 96374; 96375; 99285; J2405; J2785; J8499